=== PATIENT | female | born 1945 | race Caucasian/White ===

== ENCOUNTER → 2017-09-03 11:04 | Outpatient (CLI) | payer MEDICARE, OTHER, SELFPAY ==
[2017-09-03 12:19] LABS: ALB/GLOB Ratio 1.1 RATIO (0.9-2.4); AST(SGOT) 18 U/L (15-37); Alanine Aminotransfer ALT/SGPT 34 U/L (13-56); Albumin, Serum 4.3 g/dL (3.2-5.0); Alkaline Phosphatase 84 U/L (45-117); Anion Gap 9 (5-15); BUN 14 mg/dL (7-18); BUN/Creat Ratio 8.3 RATIO (10-20); Calcium,Total 9.4 mg/dL (8.5-10.1); Chloride 103 mmol/L (98-107); Creatinine, Serum 1.69 mg/dL (0.55-1.02); EST Glomerular Filtration Rate 32 mL/min (>60); Est Glom Filt Rate - Afr Amer 38 mL/min (>60); Glucose 141 mg/dL (74-106); Potassium 4.4 mmol/L (3.5-5.1); Protein, Total 8.3 g/dL (6.4-8.2); Sodium Level 138 mmol/L (136-145); Thyroid Stim Hormone (TSH) 4.85 uIU/mL (0.358-3.74)
[2017-09-03 12:28] LABS: Microalbumin,Random Urine 89.9 mg/L (NO RANGE EST.); Microalbumin:Creatinine Ratio 55.2 mg/g CRE (<30 mg/g CRE)
== END ==
PROVIDERS: Family Provider Family Medicine; PCP Family Medicine; Visit Provider Family Medicine
DX: E11.9 Type 2 diabetes mellitus without complications (principal)
CPT/HCPCS: 36415; 80053; 82043; 82570; 83036; 84443

== ENCOUNTER → 2018-01-27 07:31 | Outpatient (CLI) | payer MEDICARE, OTHER, SELFPAY ==
[2018-01-27 10:41] LABS: Microalbumin,Random Urine 23.6 mg/L (NO RANGE EST.); Microalbumin:Creatinine Ratio 28.5 mg/g CRE (<30 mg/g CRE)
[2018-01-27 11:01] LABS: AST(SGOT) 17 U/L (15-37); Alanine Aminotransfer ALT/SGPT 40 U/L (13-56); Albumin, Serum 3.7 g/dL (3.2-5.0); Alkaline Phosphatase 79 U/L (45-117); Anion Gap 10 (5-15); BUN 10 mg/dL (7-18); BUN/Creat Ratio 11.5 RATIO (10-20); Calcium,Total 8.7 mg/dL (8.5-10.1); Chloride 103 mmol/L (98-107); Cholesterol 116 mg/dL (200); Creatinine, Serum 0.87 mg/dL (0.55-1.02); EST Glomerular Filtration Rate 68 mL/min (>60); Est Glom Filt Rate - Afr Amer 83 mL/min (>60); Free T3 2.3 pg/mL (2.18-3.98); Globulin 3.8 g/dL (2.2-4.2); Glucose 128 mg/dL (74-106); High Density Lipoprotein 36 mg/dL; Potassium 4.2 mmol/L (3.5-5.1); Protein, Total 7.5 g/dL (6.4-8.2); Sodium Level 139 mmol/L (136-145); T4 Free Direct 1.48 ng/dL (0.76-1.46); Thyroid Stim Hormone (TSH) 6.98 uIU/mL (0.358-3.74); Triglycerides 196 mg/dL; Very Low Density Lipoprotein 39 mg/dL (5-40)
[2018-01-27 11:20] LABS: Hemoglobin A1c 6.9 % (4.2-6.3)
== END ==
PROVIDERS: Family Provider Family Medicine; PCP Family Medicine; Referring Provider Family Medicine; Visit Provider Family Medicine
DX: E03.9 Hypothyroidism, unspecified (principal); E11.9 Type 2 diabetes mellitus without complications; E55.9 Vitamin D deficiency, unspecified
CPT/HCPCS: 36415; 80053; 80061; 82043; 82570; 83036; 84439; 84443; 84481

== ENCOUNTER → 2018-04-28 10:11 | Outpatient (CLI) | payer MEDICARE, OTHER, SELFPAY ==
--- NOTE | 2018-04-28 10:14 | BI_ITS ---
MAMMOGRAPHY - BILATERAL SCREENING REASON FOR EXAM: Female, 72 years old. Routine annual screening examination. PERTINENT HISTORY: Sister with breast cancer. Aunts with breast cancer. TECHNIQUE: Digital bilateral breast erin (3D mammographic acquisition) in the CC and MLO projections. 2-D mediolateral oblique (MLO) and craniocaudad (CC) views of both breasts were obtained. CAD: Full Field Digital Mammography with Computer Added Detection was performed. COMPARISON: Comparison is made with prior study dated December 01, 2014 and September 14, 2013. FINDINGS: Breast Composition: There are scattered areas of fibroglandular density. There are no dominant masses or suspicious calcifications. Stable small bilateral axillary lymph nodes. No other significant abnormalities are identified. There has been no significant change since the prior study. BI/SCREENING MAMM (CAD), BILAT IMPRESSION: Stable bilateral screening mammogram. Yearly follow-up mammogram recommended. (A) ASSESSMENT CATEGORY: BIRADS Category 2: Benign. A letter regarding these results will be sent to the patient by the facility within 30 days. Approximately 10% of breast cancers are not detected by mammography. A normal mammogram should not delay biopsy of a clinically suspicious abnormality. [id number] Electronically Signed: Man Rivas MD at 11:32 EST , Service support ,
--- NOTE | 2018-04-28 10:16 | BD_ITS ---
STUDY: DUAL ENERGY X-RAY ABSORPTIOMETRY / DXA REASON FOR EXAM: Female, 72 years old. The patient is postmenopausal. Loss of height. TECHNIQUE: Bone Mineral Density (BMD) measurements of lumbar spine and bilateral hips were obtained. COMPARISON: Comparison is made with prior study dated August 20, 2011. FINDINGS: Lumbar Spine (L1-L4): g/cm2 (1.056) / T-score (-1.0) / Z-score (0.8) Findings are suggestive of normal bone density with a low fracture risk. Left Femur Total: g/cm2 (0.943) / T-score (-0.5) / Z-score (1.1) Left Femoral Neck: g/cm2 (0.866) / T-score (-1.2) / Z-score (0.6) Right Femur Total: g/cm2 (0.796) / T-score (-1.7) / Z-score (-0.1) Right Femoral Neck: g/cm2 (0.724) / T-score (-2.3) / Z-score (-0.5) The T-Scores on the most recent prior examination were: Lumbar Spine (L1-L4): There has been improvement of bone density since the previous examination. Left Femur Total: which represents a worsening of 3.2%. Right Femur Total: which represents a worsening of 10.5%. BD/Dexa Bone Density Study IMPRESSION: The patient is considered osteopenic as outlined below according to World [place] Organization (WHO) criteria with a moderate fracture risk. There has been worsening of bone density since the previous examination. Reference Information: The T-score is the number of standard deviations above or below the standard which is normal for young adults at their peak bone mineral density. The World Health Organization (WHO) interprets the T-scores as follows: Above -1 Normal bone density Between -1 and -2.5 Osteopenia Equal to / or below -2.5 Osteoporosis As a practical clinical guideline, osteopenia may be graded as follows: Mild -1 through -1.5 Moderate -1.6 through -2.0 Severe -2.1 through -2.4 The Z-score is the number of standard deviations above or below age-matched controls. A Z-score of less than -1.5 would be considered abnormal. References: 1. NIH Osteoporosis and Related Bone Diseases http://www.osteo.org 2. International Society for Clinical Densitometry http://www.iscd.org 3. National Osteoporosis Foundation http://www.nof.org Electronically Signed: Man Rivas MD at 14:46 EST , Service support ,
== END ==
PROVIDERS: Family Provider Family Medicine; PCP Family Medicine; Referring Provider Family Medicine; Visit Provider Family Medicine
DX: Z12.31 Encounter for screening mammogram for malignant neoplasm of breast (principal); N95.9 Unspecified menopausal and perimenopausal disorder
CPT/HCPCS: 77063; 77067; 77080

== ENCOUNTER → 2018-06-01 08:03 | Outpatient (CLI) | payer MEDICARE, OTHER, SELFPAY ==
[2018-06-01 10:39] LABS: Hemoglobin A1c 6.9 % (4.2-6.3)
[2018-06-01 10:48] LABS: T4 Free Direct 1.53 ng/dL (0.76-1.46); Thyroid Stim Hormone (TSH) 1.83 uIU/mL (0.358-3.74)
== END ==
PROVIDERS: Family Provider Family Medicine; PCP Family Medicine; Referring Provider Family Medicine; Visit Provider Family Medicine
DX: E11.9 Type 2 diabetes mellitus without complications (principal); E03.9 Hypothyroidism, unspecified
CPT/HCPCS: 36415; 83036; 84439; 84443

== ENCOUNTER → 2018-09-08 07:43 | Outpatient (CLI) | payer MEDICARE, OTHER, SELFPAY ==
[2018-09-08 10:03] LABS: Absolute Lymphocyte Count 1.11 X10^3/ul (0.83-4.51); Absolute Neutrophil Count 5.6 X10^3/uL (2.0-7.7); Basophil# 0.02 X10^3/uL; Basophil% 0.3 % (0-1); Eosinophil# 0.17 X10^3/uL; Eosinophils% 2.3 % (0-5); Hematocrit 40.5 % (37-47); Lymphocyte # 1.11 X10^3/ul (4.0); Lymphocyte % 14.8 % (19-41); Mean Corp Hgb Conc 32.1 g/gl (32-36); Mean Corpuscular Volume 87.3 fL (81-99); Mean Platelet Vol. 11.9 fl (6.2-12.0); Monocyte# 0.58 X10^3/uL; Monocyte% 7.7 % (0-10); Neutrophil # 5.61 X10^3/uL (2.7-7.7); Neutrophil % 74.8 % (47-70); Platelet Count 249 K/mm3 (150-450); RBC Distribution Width CV 12.8 % (11.6-14.6); RBC Distribution Width SD 40.8 fl (35.1-43.9); Red Blood Count 4.64 M/mm3 (4.2-5.4); White Blood Count 7.5 K/mm3 (4.4-11.0)
[2018-09-08 10:08] LABS: POSITIVE COUNT NO; POSITIVE DIFFERENTIAL NO; POSITIVE MORPHOLOGY NO
[2018-09-08 10:15] LABS: Microalbumin,Random Urine 15.2 mg/L (NO RANGE EST.); Microalbumin:Creatinine Ratio 19.8 mg/g CRE (<30 mg/g CRE)
[2018-09-08 10:20] LABS: AST(SGOT) 17 U/L (15-37); Alanine Aminotransfer ALT/SGPT 31 U/L (13-56); Albumin, Serum 3.8 g/dL (3.2-5.0); Alkaline Phosphatase 72 U/L (45-117); Anion Gap 9 (5-15); BUN 11 mg/dL (7-18); BUN/Creat Ratio 12.2 RATIO (10-20); Calcium,Total 9.2 mg/dL (8.5-10.1); Chloride 105 mmol/L (98-107); Cholesterol 131 mg/dL (200); EST Glomerular Filtration Rate 65 mL/min (>60); Est Glom Filt Rate - Afr Amer 79 mL/min (>60); Free T3 2.6 pg/mL (2.18-3.98); Glucose 144 mg/dL (74-106); High Density Lipoprotein 35 mg/dL; Potassium 4.1 mmol/L (3.5-5.1); Protein, Total 7.8 g/dL (6.4-8.2); Sodium Level 140 mmol/L (136-145); Thyroid Stim Hormone (TSH) 2.49 uIU/mL (0.358-3.74); Triglycerides 249 mg/dL; Very Low Density Lipoprotein 50 mg/dL (5-40)
== END ==
PROVIDERS: Family Provider Family Medicine; PCP Family Medicine; Referring Provider Family Medicine; Visit Provider Family Medicine
DX: E78.00 Pure hypercholesterolemia, unspecified (principal); E03.9 Hypothyroidism, unspecified; I10 Essential (primary) hypertension
CPT/HCPCS: 36415; 80053; 80061; 82043; 82570; 84443; 84481; 85025

== ENCOUNTER → 2019-04-01 08:40 | Outpatient (CLI) | payer MEDICARE, OTHER, SELFPAY ==
[2019-04-01 10:38] LABS: Hemoglobin A1c 7.4 % (4.2-6.3)
[2019-04-01 10:40] LABS: AST(SGOT) 15 U/L (15-37); Alanine Aminotransfer ALT/SGPT 36 U/L (13-56); Albumin, Serum 3.7 g/dL (3.2-5.0); Alkaline Phosphatase 71 U/L (45-117); Anion Gap 7 (5-15); BUN 13 mg/dL (7-18); BUN/Creat Ratio 14.8 RATIO (10-20); Calcium,Total 8.9 mg/dL (8.5-10.1); Chloride 105 mmol/L (98-107); Cholesterol 140 mg/dL (200); Creatinine, Serum 0.88 mg/dL (0.55-1.02); EST Glomerular Filtration Rate 67 mL/min (>60); Est Glom Filt Rate - Afr Amer 81 mL/min (>60); Globulin 3.8 g/dL (2.2-4.2); Glucose 147 mg/dL (74-106); High Density Lipoprotein 38 mg/dL; Potassium 3.9 mmol/L (3.5-5.1); Protein, Total 7.5 g/dL (6.4-8.2); Sodium Level 139 mmol/L (136-145); Thyroid Stim Hormone (TSH) 2.29 uIU/mL (0.358-3.74); Triglycerides 233 mg/dL; Very Low Density Lipoprotein 47 mg/dL (5-40)
[2019-04-01 10:42] LABS: Microalbumin,Random Urine 20.3 mg/L (NO RANGE EST.); Microalbumin:Creatinine Ratio 34.9 mg/g CRE (<30 mg/g CRE)
== END ==
PROVIDERS: PCP Family Medicine; Referring Provider Family Medicine; Visit Provider Family Medicine
DX: I25.10 Atherosclerotic heart disease of native coronary artery without angina pectoris (principal); E11.9 Type 2 diabetes mellitus without complications
CPT/HCPCS: 36415; 80053; 80061; 82043; 82570; 83036; 84443

== ENCOUNTER → 2019-07-22 10:48 | Outpatient (CLI) | payer MEDICARE, OTHER, SELFPAY ==
[2019-07-22 12:48] LABS: Absolute Lymphocyte Count 1.57 X10^3/uL (0.83-4.51); Absolute Neutrophil Count 5.8 X10^3/uL (2.0-7.7); Basophil# 0.07 X10^3/uL; Basophil% 0.8 % (0-1); Eosinophils% 2.4 % (0-5); Hematocrit 41.6 % (37-47); Hemoglobin 13.3 g/dL (12.0-15.0); Lymphocyte # 1.57 X10^3/ul (4.0); Lymphocyte % 18.6 % (19-41); Mean Corpuscular Hgb 28.3 pg (27.0-32.0); Mean Corpuscular Volume 88.5 fL (81-99); Mean Platelet Vol. 11.8 fl (6.2-12.0); Monocyte# 0.72 X10^3/uL; Monocyte% 8.5 % (0-10); NRBC Flagged by Analyzer 0 % (0-5); Neutrophil # 5.84 X10^3/uL (2.7-7.7); Neutrophil % 69.3 % (47-70); Platelet Count 246 K/mm3 (150-450); RBC Distribution Width SD 42.2 fl (35.1-43.9); White Blood Count 8.4 K/mm3 (4.4-11.0)
[2019-07-22 13:03] LABS: Partial Thromboplast Time 24.9 Seconds (24.1-36.2); Prothrombin Time (Protime)PT. 12.9 SECONDS (11.7-14.9)
[2019-07-22 13:26] LABS: Creatinine, Serum 0.89 mg/dL (0.55-1.02); EST Glomerular Filtration Rate 66 mL/min (>60); Est Glom Filt Rate - Afr Amer 80 mL/min (>60)
[2019-07-22 14:06] LABS: Hemoglobin A1c 7.6 % (4.2-6.3)
== END ==
PROVIDERS: PCP Family Medicine; Referring Provider Family Medicine; Visit Provider Family Medicine
DX: E11.9 Type 2 diabetes mellitus without complications (principal); I25.10 Atherosclerotic heart disease of native coronary artery without angina pectoris; Z01.818 Encounter for other preprocedural examination
CPT/HCPCS: 36415; 82565; 83036; 85025; 85610; 85730

== ENCOUNTER → 2019-11-22 08:06 | Outpatient (CLI) | payer MEDICARE, OTHER, SELFPAY ==
[2019-11-22 10:33] LABS: Hemoglobin A1c 7.5 % (3.8-5.6)
[2019-11-22 10:52] LABS: ALB/GLOB Ratio 0.9 RATIO (0.9-2.4); AST(SGOT) 17 U/L (15-37); Alanine Aminotransfer ALT/SGPT 34 U/L (13-56); Albumin, Serum 3.6 g/dL (3.2-5.0); Alkaline Phosphatase 74 U/L (45-117); Anion Gap 6 (5-15); BUN 12 mg/dL (7-18); BUN/Creat Ratio 13.8 RATIO (10-20); Chloride 108 mmol/L (98-107); Cholesterol 128 mg/dL (200); Creatinine, Serum 0.87 mg/dL (0.55-1.02); EST Glomerular Filtration Rate 68 mL/min (>60); Est Glom Filt Rate - Afr Amer 82 mL/min (>60); Glucose 162 mg/dL (74-106); High Density Lipoprotein 33 mg/dL; Potassium 4.1 mmol/L (3.5-5.1); Protein, Total 7.6 g/dL (6.4-8.2); Sodium Level 138 mmol/L (136-145); Thyroid Stim Hormone (TSH) 1.48 uIU/mL (0.358-3.74); Triglycerides 267 mg/dL; Very Low Density Lipoprotein 53 mg/dL (5-40)
== END ==
PROVIDERS: PCP Family Medicine; Referring Provider Family Medicine; Visit Provider Family Medicine
DX: E11.9 Type 2 diabetes mellitus without complications (principal); I25.10 Atherosclerotic heart disease of native coronary artery without angina pectoris; E03.9 Hypothyroidism, unspecified
CPT/HCPCS: 36415; 80053; 80061; 82306; 83036; 84443

== ENCOUNTER → 2020-03-22 11:22 | Outpatient (CLI) | payer MEDICARE, OTHER, SELFPAY ==
[2020-03-22 12:47] LABS: Hemoglobin A1c 7.6 % (3.8-5.6)
[2020-03-22 12:56] LABS: AST(SGOT) 14 U/L (15-37); Alanine Aminotransfer ALT/SGPT 29 U/L (13-56); Albumin, Serum 3.8 g/dL (3.2-5.0); Alkaline Phosphatase 76 U/L (45-117); Anion Gap 7 (5-15); BUN 14 mg/dL (7-18); BUN/Creat Ratio 15.4 RATIO (10-20); Calcium,Total 9.1 mg/dL (8.5-10.1); Chloride 103 mmol/L (98-107); Creatinine, Serum 0.91 mg/dL (0.55-1.02); EST Glomerular Filtration Rate 64 mL/min (>60); Est Glom Filt Rate - Afr Amer 78 mL/min (>60); Globulin 3.8 g/dL (2.2-4.2); Glucose 163 mg/dL (74-106); Potassium 3.6 mmol/L (3.5-5.1); Protein, Total 7.6 g/dL (6.4-8.2); Sodium Level 136 mmol/L (136-145)
== END ==
PROVIDERS: PCP Family Medicine; Referring Provider Family Medicine; Visit Provider Family Medicine
DX: E11.9 Type 2 diabetes mellitus without complications (principal)
CPT/HCPCS: 36415; 80053; 83036

== ENCOUNTER → 2020-05-11 09:36 | Outpatient (CLI) | payer MEDICARE, OTHER, SELFPAY ==
--- NOTE | 2020-05-11 09:39 | BI_ITS ---
MAMMOGRAPHY - BILATERAL SCREENING REASON FOR EXAM: Female, 74 years old. Routine annual screening examination. PERTINENT HISTORY: Sister with breast cancer. Aunts with breast cancer. TECHNIQUE: Digital bilateral breast clau (3D mammographic acquisition) in the CC and MLO projections. 2-D mediolateral oblique (MLO) and craniocaudad (CC) views of both breasts were obtained. CAD: Full Field Digital Mammography with Computer Added Detection was performed. COMPARISON: Comparison is made with prior examination dated 04/28/2018 and 12/01/2014. FINDINGS: Breast Composition: There are scattered areas of fibroglandular density. There are no dominant masses or suspicious calcifications. Stable small benign-appearing bilateral axillary lymph nodes. No other significant abnormalities are identified. There has been no significant change since the prior study. BI/SCRN MAMM (CAD)W/CLAU BILAT IMPRESSION: Stable bilateral screening mammogram. Yearly follow-up mammogram recommended. (A) ASSESSMENT CATEGORY: BIRADS Category 2: Benign. A letter regarding these results will be sent to the patient by the facility within 30 days. Approximately 10% of breast cancers are not detected by mammography. A normal mammogram should not delay biopsy of a clinically suspicious abnormality. [id number] Electronically Signed: Man Rivas MD at 10:35 EST , Service support ,
== END ==
PROVIDERS: PCP Family Medicine; Referring Provider Family Medicine; Visit Provider Family Medicine
DX: Z12.31 Encounter for screening mammogram for malignant neoplasm of breast (principal); Z80.3 Family history of malignant neoplasm of breast
CPT/HCPCS: 77063; 77067

== ENCOUNTER → 2020-10-31 17:38 | Outpatient (CLI) | payer MEDICARE, OTHER, SELFPAY | PROVIDERS: PCP Family Medicine; Visit Provider Family Medicine | DX: Z20.822 Contact with and (suspected) exposure to COVID-19 (principal) | CPT/HCPCS: 87635; U0005; U0003 ==

== ENCOUNTER 2021-04-05 08:23 | Outpatient (CLI) | payer MEDICARE, OTHER, SELFPAY ==
[2021-04-05 10:05] LABS: Anion Gap 6 (5-15); BUN 14 mg/dL (7-18); BUN/Creat Ratio 13.9 RATIO (10-20); Calcium,Total 9.1 mg/dL (8.5-10.1); Chloride 105 mmol/L (98-107); Cholesterol 118 mg/dL (200); Creatinine, Serum 1.01 mg/dL (0.55-1.02); EST Glomerular Filtration Rate 57 mL/min (>60); Est Glom Filt Rate - Afr Amer 69 mL/min (>60); Glucose 126 mg/dL (74-106); High Density Lipoprotein 43 mg/dL; Potassium 3.9 mmol/L (3.5-5.1); Sodium Level 138 mmol/L (136-145); Triglycerides 166 mg/dL; Very Low Density Lipoprotein 33 mg/dL (5-40)
[2021-04-05 10:08] LABS: Hemoglobin A1c 6.4 % (3.8-5.6)
== END 2021-04-05 23:59 | disposition short-term general hospital (02) ==
LOC: MTLAB 08:25
PROVIDERS: PCP Family Medicine; Referring Provider Nurse Practitioner Family; Visit Provider Nurse Practitioner Family
DX: E11.9 Type 2 diabetes mellitus without complications (principal); E78.00 Pure hypercholesterolemia, unspecified
CPT/HCPCS: 36415; 80048; 80061; 83036

== ENCOUNTER 2021-05-03 11:01 | Outpatient (CLI) | payer MEDICARE, OTHER, SELFPAY ==
[2021-05-03 12:38] LABS: AST(SGOT) 15 U/L (15-37); Alanine Aminotransfer ALT/SGPT 30 U/L (13-56); Albumin, Serum 3.8 g/dL (3.2-5.0); Alkaline Phosphatase 62 U/L (45-117); Anion Gap 3 (5-15); BUN 12 mg/dL (7-18); BUN/Creat Ratio 13.7 RATIO (10-20); Calcium,Total 9.7 mg/dL (8.5-10.1); Chloride 105 mmol/L (98-107); Creatinine, Serum 0.87 mg/dL (0.55-1.02); EST Glomerular Filtration Rate 67 mL/min (>60); Est Glom Filt Rate - Afr Amer 81 mL/min (>60); Globulin 3.7 g/dL (2.2-4.2); Glucose 91 mg/dL (74-106); Protein, Total 7.5 g/dL (6.4-8.2); Sodium Level 137 mmol/L (136-145)
== END 2021-05-03 23:59 | disposition home or self-care (01) ==
LOC: MTLAB 11:03
PROVIDERS: PCP Family Medicine; Referring Provider Registered Nurse; Visit Provider Registered Nurse
DX: E78.00 Pure hypercholesterolemia, unspecified (principal)
CPT/HCPCS: 36415; 80053

== ENCOUNTER 2021-09-04 16:21 | Inpatient (IN) | payer MEDICARE, OTHER, SELFPAY ==
[2021-09-04] VITALS (7 sets, daily range): BP systolic 139–167; BP diastolic 68–83; PULSE 62–98; RESP 15–18; TEMP 36.4–38; O2SAT 95–98; BMI 26.8; BMI 26.3
--- NOTE | 2021-09-04 16:36 | EDS_ITS ---
HPI History of Present Illness Chief Complaint: Fall Narrative Narrative: This is a 75-year-old female presenting after a fall in her driveway. She states she has been having difficulty ambulating recently secondary to a knee problem that she has been seeing physical therapy for. She states that it hurts behind her right knee. She states he was going down the driveway and felt slightly lightheaded but also had difficulty with her knee and fell. She states she was unable to get up off the driveway. She reports that this is not her usual state of health but recently she has been having trouble getting up because of her knee problem. She denies any direct trauma to the knee. She states her right hip hurts but points to the anterior thigh proximally. She suffered some minor abrasions to the bilateral hands but she states her hands do not hurt. She also has a superficial abrasion to the right elbow which also is not hurting. She has no pain with movement. She denies head injury or LOC. She states that other than her knee problem and her current hip pain she is in h usual state health and feels well. She denies any chest pain, palpitations, shortness of breath prior to falling. She states he has been eating and drinking normally. She is making normal urine and stool. [facility] Medical History (Updated 09/04/21 @ 21:[address] Sophie Vega MD) Allergic rhinitis CAD (coronary artery disease) Diabetes High cholesterol HTN (hypertension) Hypothyroid Home Medications aspirin 81 mg tablet,delayed release (Adult Low Dose Aspirin) 81 mg PO DAILY 05/22/15 [History Last Taken Unknown] atorvastatin 40 mg tablet 40 mg PO QHS HLD 05/22/15 [History Last Taken Unknown] lisinopril 5 mg tablet 5 mg PO DAILY 05/22/15 [History Last Taken Unknown] fluticasone propionate 50 mcg/actuation nasal spray,suspension 2 ea intranasal DAILY 09/04/21 [History Last Taken Unknown] levothyroxine 100 mcg tablet 100 mcg PO DAILY 09/04/21 [History Last Taken Unknown] metformin 500 mg tablet 500 mg PO BID DM 09/04/21 [History Last Taken Unknown] metoprolol succinate 25 mg tablet,extended release 24 hr 25 mg PO DAILY 09/04/21 [History Last Taken Unknown] Allergy/AdvReac Type Severity Reaction Status Date / Time acetaminophen [From Tylenol] AdvReac Upset Verified 09/04/21 16:22 Stomach oxycodone AdvReac I FEEL Verified 03/23/15 11:57 WACKED OUT Penicillins [PCN] AdvReac I STAY Verified 03/23/15 11:57 AWAY, MY DAD WAS ALLERGIC Surgical History (Updated 09/04/21 @ 16:40 by Ivette Glasgow) Hx of heart artery stent Social History Smoking Status: Never smoker ROS ROS ED Constitutional Constitutional ED: Denies chills or fever(s) Eyes Eyes: Denies change in vision or diplopia ENT ENT ED: Denies rhinorrhea or sore throat Cardiovascular Cardiovascular: Denies chest pain or palpitations Respiratory/Chest Respiratory/Chest: Denies cough or dyspnea Gastrointestinal Gastrointestinal: Denies abdominal pain or constipation Genitourinary Genitourinary ED: Denies dysuria or hematuria Musculoskeletal Musculoskeletal: Reports other Details: Right hip pain ; Denies back pain Integumentary Reports Abrasions; Denies abscess Neurologic Neurologic: Denies headache(s) or paresthesias Psychiatric Psychiatric: Denies anxiety or depression EXAM Physical Exam Const Vital Signs: 09/04/21 16:22 09/04/21 16:37 09/04/21 21:07 Temperature 97.5 F L Temperature Source Temporal Pulse Rate 88 62 Respiratory Rate 15 16 Respiratory Effort Normal Non-Labored Respiratory Depth Normal Respiratory Pattern Normal Blood Pressure 150/68 H 139/71 H Blood Pressure Mean 95 93 Pulse Ox 98 98 Oxygen Delivery Method Room Air Room Air Positive well nourished General Appearance ED: NAD HEENT Reports moist mucous membranes normocephalic and atraumatic Chest Wall inspection of chest normal Resp normal respiratory effort Cardio regular rate and regular rhythm Back/Spine Cervical Spine: Negative for cervical spine tenderness Thoracic Spine / Upper Back: Negative for thoracic spinal tenderness Lumbar Spine / Lower Back: Negative for lumbar spinal tenderness Extremity Extremity Narrative: Right proximal thigh is tender to palpation in the inguinal area. No ecchymosis, swelling. The right greater trochanter is nontender to palpation. Patient is able to slightly flex the hip up off the bed but this elicits pain. The right extensor mechanism is intact. There is no palpable pain to the right knee. She has full range of motion without pain of the bilateral wrists and hands. Her right elbow has a superficial abrasion overlying the olecranon however she has full range of motion without deformity and this is well. No pain is palpated in this area. Neuro oriented x3, CN's II-XII intact bilaterally, moves all extremities and no sensory deficits noted Sensorium / Orientation: alert Psych mental status grossly normal MDM MDM MDM Narrative Medical decision making narrative: Patient presenting with a fall in the driveway. She was complaining of some lightheadedness currently feels at her baseline. She states has been eating drinking normally. Making normal urine and stool. X-ray of the right hip on my interpretation shows an impacted right femoral neck fracture. I did obtain blood work and she has a slight leukocytosis of 14.2. Hemoglobin hematocrit are stable. Renal function and electrolytes unremarkable. She is slightly dehydrated. Urinalysis negative for infection. Discussed with Dr. Moreno who recommended admission to medicine. I did discuss case with medicine who requested an EKG which I did obtain and on my interpretation shows a sinus rhythm with a ventricular rate of 89 bpm without ischemic change or dysrhythmia. Patient declined any analgesia in the ER. Soto catheter was placed for comfort. Patient admitted in stable condition. Impression: 1. fall 2. Right hip fracture Lab Data Attestation: I reviewed the patient's lab results. Labs: Laboratory Results - last 24 hr 09/04/21 09/04/21 09/04/21 20:26 20:26 20:41 WBC 14.2 H RBC 4.45 Hgb 13.3 Hct 40.7 MCV 91.5 MCH 29.9 MCHC 32.7 RDW Std Deviation 41.8 RDW Coeff of Aditya 12.5 Plt Count 230 MPV 11.2 Immature Gran % (Auto) 0.800 Neut % (Auto) 80.3 H Lymph % (Auto) 10.2 L [place] % (Auto) 6.5 Eos % (Auto) 1.8 Baso % (Auto) 0.4 Absolute Neuts (auto) 11.4 H Absolute Lymphs (auto) 1.44 Nucleated RBC % 0 Sodium 141 Potassium 3.7 Chloride 107 Carbon Dioxide 26.0 Anion Gap 8 BUN 22 H Creatinine 1.03 H Estim Creat Clear Calc 42.47 Est GFR (MDRD) Af Amer 67 Est GFR (MDRD) Non-Af 55 L BUN/Creatinine Ratio 21.4 H Glucose 117 H Calcium 9.3 Urine Color Yellow Urine Clarity Sl. Cloudy Urine pH 6.0 Ur Specific [place] 1.015 Urine Protein Negative Urine Glucose (UA) Normal Urine Ketones 5 H Urine Occult Blood Negative Urine Nitrite Negative Urine Bilirubin Negative Urine Urobilinogen Normal Ur Leukocyte Esterase 100 H Urine RBC 0 SEEN Urine WBC 5-10 SEEN Ur Squamous Epith Cells 0-5 SEEN Urine Bacteria 0 SEEN Urine Mucus 0 SEEN Radiography Diagnostic Testing: Clinical Impression(s) from Imaging Studies Hip/Pelvis X-Ray 09/04/21 16:50 IMPRESSION: 1. Impacted right femoral neck fracture. 2. No other fractures or dislocations. 3. No significant arthritic or degenerative changes. 4. Mild demineralization. Electronically Signed: Jarod Mary MD at 17:42 EDT , Discharge Plan Triage Chief Complaint: Fall ED Provider: Brett Low Dx/Rx/DC Orders Primary Care Provider: Jah Luther
--- NOTE | 2021-09-04 16:50 | RAD_ITS ---
STUDY: PELVIS AND RIGHT HIP X-RAY SERIES OF 1657 HOURS ON 09/04/2021 REASON FOR EXAM: 75-year-old female with right hip pain. TECHNIQUE: 3 views of the pelvis and hip. COMPARISON: None. FINDINGS: Mild demineralization. There is an impacted right femoral neck fracture. There is no evidence of pelvic bone fractures. No osseous lytic or sclerotic or mass lesions are evident. The symphysis pubis and sacroiliac joints have normal appearance. There is no evidence of significant hip joint space narrowing or arthritic or degenerative changes of the hips. RAD/HIP, UNI W/ Pelvis 2-3 Views IMPRESSION: 1. Impacted right femoral neck fracture. 2. No other fractures or dislocations. 3. No significant arthritic or degenerative changes. 4. Mild demineralization. Electronically Signed: Jarod Mary MD at 17:42 EDT ,
[2021-09-04 20:44] LABS: Absolute Lymphocyte Count 1.44 X10^3/uL (0.83-4.51); Absolute Neutrophil Count 11.4 X10^3/uL (2.0-7.7); Basophil# 0.05 X10^3/uL; Basophil% 0.4 % (0-1); Eosinophil# 0.26 X10^3/uL; Eosinophils% 1.8 % (0-5); Hematocrit 40.7 % (37-47); Hemoglobin 13.3 g/dL (12.0-15.0); Lymphocyte # 1.44 X10^3/ul (0.83-4.51); Lymphocyte % 10.2 % (19-41); Mean Corp Hgb Conc 32.7 g/dL (32-36); Mean Corpuscular Hgb 29.9 pg (27.0-32.0); Mean Corpuscular Volume 91.5 fL (81-99); Mean Platelet Vol. 11.2 fl (6.2-12.0); Monocyte# 0.92 X10^3/uL; Monocyte% 6.5 % (0-10); NRBC Flagged by Analyzer 0 % (0-5); Neutrophil % 80.3 % (47-70); Platelet Count 230 K/mm3 (150-450); RBC Distribution Width CV 12.5 % (11.6-14.6); RBC Distribution Width SD 41.8 fl (35.1-43.9); Red Blood Count 4.45 M/mm3 (4.2-5.4); White Blood Count 14.2 K/mm3 (4.4-11.0)
[2021-09-04 20:46] LABS: Bacteria 0 SEEN /hpf (None Seen); Mucous, Urine 0 SEEN /hpf (<or=2+); Red Blood Cells-Urine 0 SEEN /hpf (0-5)
[2021-09-04 20:49] LABS: Color, Urine Yellow (Yellow); Glucose, Dipstick Normal (Normal); Ketone-Dipstick 5 mg/dl (Negative); Leukocyte Esterase-Dipstick 100 /ul (Negative); Nitrite-Dipstick Negative (Negative); Occult Blood-Urine Negative /ul (Negative); Protein-Dipstick Negative (Negative); Specific Gravity, Urine 1.015 (1.002-1.030); Urine Bilirubin Dipstick Negative (Negative); Urine Clarity Sl. Cloudy (Clear); Urine Urobilinogen Normal (Normal)
[2021-09-04 20:55] LABS: Anion Gap 8 (5-15); BUN 22 mg/dL (7-18); BUN/Creat Ratio 21.4 RATIO (10-20); Calcium,Total 9.3 mg/dL (8.5-10.1); Chloride 107 mmol/L (98-107); Creatinine, Serum 1.03 mg/dL (0.55-1.02); EST Glomerular Filtration Rate 55 mL/min (>60); Est Glom Filt Rate - Afr Amer 67 mL/min (>60); Estimated Creatinine Clearance 42.47 ml/min; Glucose 117 mg/dL (74-106); Potassium 3.7 mmol/L (3.5-5.1); Sodium Level 141 mmol/L (136-145)
[2021-09-04 21:08] LABS: Squamous Epithelial Cells - UA 0-5 SEEN /hpf (5-10); White Blood Cells 5-10 SEEN /hpf (0-5)
--- NOTE | 2021-09-04 21:23 | HP.PCM.HOS_ITS ---
HPI - General General Date of Admission: 09/04/21 Date of Service: 09/04/21 Chief Complaint: Fall, R hip pain HPI Narrative The patient is a 75 y/o F w/ PMHx: Diabetes mellitus type II, HTN, HLD, Hypothyroidism, Hx STEMI w/ CAD s/p PCI, Hx Fe deficiency anemia who presents to the [facility] ED on 09/04/21 with history of recent knee injury on 08/24/2021 while in a bowling tournament when she was attempting to roll the ball with onset right posterior knee pain as well as laterally and since then need to use a brace with difficulty taking longer steps with intermittent shooting pain from the lateral knee up the leg with PCP visit on day of presentation with plan therapies to initiate treatment and potential MRI if not improving with additional history of approximate 3 weeks of intermittent vertiginous type symptoms reported as the room spinning specifically with specific onset primarily when she lays down fast or sits up fast or when she turns her head fast both to the right and left side and it is proven primarily with his activities however on day of presentation she was outside walking down her driveway and had onset of the vertiginous symptoms although she is unsure if she potentially turned to look at something and unfortunately fell onto her right side with significant hip pain 10 out of 10 initially, reporting at this time without any movement 4 out of 10, dull aching if not moving and sharp stabbing if moving with inability to get up and debility prompting ED evaluation. Work-up in the ED included T97.5, heart rate 88, BP 150/68, respiratory rate 15, 98% on room air, CBC with WC 14.2, hemoglobin 13.3, platelet 230 with left shift, BMP with BUN/creatinine 22/1.03, glucose 117, urinalysis unremarkable, plain film of the right hip and pelvis with an impacted right femoral neck fracture with no other fractures or dis locations, no significant arthritic or degenerative changes and mild demineralization. Given history and comorbidities requested EKG performed in the ED in addition noted intention to obtain CT of the head on route to floor given a 3-week timeline if there was certainly any neurological stroke etiology for the vertigo this would be seen on CT; however, given her reports of symptoms do suspect more positional component however it is very difficult to reproduce given her current hip fracture. [facility] Medical History (Updated 09/04/21 @ 21:[address] Sophie Vega MD) Allergic rhinitis CAD (coronary artery disease) Diabetes High cholesterol HTN (hypertension) Hypothyroid Home Medications aspirin 81 mg tablet,delayed release (Adult Low Dose Aspirin) 81 mg PO DAILY 05/22/15 [History Last Taken Unknown] atorvastatin 40 mg tablet 40 mg PO QHS HLD 05/22/15 [History Last Taken Unknown] lisinopril 5 mg tablet 5 mg PO DAILY 05/22/15 [History Last Taken Unknown] fluticasone propionate 50 mcg/actuation nasal spray,suspension 2 ea intranasal DAILY 09/04/21 [History Last Taken Unknown] levothyroxine 100 mcg tablet 100 mcg PO DAILY 09/04/21 [History Last Taken Unknown] metformin 500 mg tablet 500 mg PO BID DM 09/04/21 [History Last Taken Unknown] metoprolol succinate 25 mg tablet,extended release 24 hr 25 mg PO DAILY 09/04/21 [History Last Taken Unknown] Allergy/AdvReac Type Severity Reaction Status Date / Time acetaminophen [From Tylenol] AdvReac Upset Verified 09/04/21 16:22 Stomach oxycodone AdvReac I FEEL Verified 03/23/15 11:57 WACKED OUT Penicillins [PCN] AdvReac I STAY Verified 03/23/15 11:57 AWAY, MY DAD WAS ALLERGIC Family History (Updated 09/04/21 @ 22:[address] Sophie Vega MD) Mother Colon cancer CAD (coronary artery disease) Heart disease Hypertension Father Heart disease Hypertension Diabetes CHF (congestive heart failure) Surgical History (Updated 09/04/21 @ 22:[address] Sophie Vega MD) History of bilateral tubal ligation Hx of heart artery stent S/P bilateral foot surgery Social History (Updated 09/04/21 @ 22:[address] Sophie Vega MD) household members: other details: Her older sister lives with her. Smoking Status: Never smoker alcohol intake: never substance use type: does not use ROS ROS Narrative Admission Review of Systems: CONSTITUTIONAL: No weight loss, fever, chills, + weakness or fatigue. HEENT: Eyes: No visual loss, blurred vision, double vision or yellow sclerae. Ears, Nose, Throat: No hearing loss, sneezing, congestion, runny nose or sore throat. SKIN: No rash or itching, lesions, wounds. CARDIOVASCULAR: No chest pain, chest pressure or chest discomfort, palpitations, edema, orthopnea, syncopal events. RESPIRATORY: No shortness of breath, cough or sputum, wheezing, hemoptysis. GASTROINTESTINAL: No anorexia, nausea, vomiting or diarrhea, abdominal pain, melena, BRBPR. GENITOURINARY: No dysuria, frequency, urgency or retention. NEUROLOGICAL: + Vertigo, No headache, syncope, paralysis, ataxia, numbness or tingling in the extremities, focal weakness, change in bowel or bladder control, seizure. MUSCULOSKELETAL: + muscle, back pain, joint pain or stiffness. HEMATOLOGIC: No anemia, bleeding or bruising. LYMPHATICS: No enlarged nodes. No history of splenectomy. PSYCHIATRIC: No history of depression or anxiety. ENDOCRINOLOGIC: No reports of sweating, cold or heat intolerance. No polyuria or polydipsia. ALLERGIES: No history of asthma, hives, eczema or rhinitis. Vital Signs Vital Signs Vital Signs: 09/04/21 16:22 09/04/21 16:37 09/04/21 21:07 Temperature 97.5 F L Temperature Source Temporal Pulse Rate 88 62 Respiratory Rate 15 16 Respiratory Effort Normal Non-Labored Respiratory Depth Normal Respiratory Pattern Normal Blood Pressure 150/68 H 139/71 H Blood Pressure Mean 95 93 Pulse Ox 98 98 Oxygen Delivery Method Room Air Room Air Weight Weight: 161 lb Body Mass Index (BMI) 26.8 Physical Exam Narrative Physical Examination: General: Awake, alert, oriented x 3 and cooperative, laying in the ED bed, no acute distress, notes currently right hip pain for out of 10, dull aching Skin: Normal color, normal turgor, no icterus, no cyanosis. HEENT: AT/NC, EOMI, PERRLA, no evidence of any nystagmus and unable to recreate but difficult exam as hip fracture makes evaluation for vertigo difficult, mildly dry MM, no carotid bruits or JVD noted. Lungs: Mildly diminished, greater bases, appropriate effort no rales, ronchi or wheezing. Heart: Currently regular rate and rhythm; no gallop, rub audible. Abdomen: Soft, NTTP, ND, mildly hyperactive BS, no HSM. Extremities: No cyanosis, clubbing, or edema, mild tenderness to palpation of the lateral knee, brace in place, peripheral pulses intact, no external significant rotation with as noted plain film demonstrating proximal impacted femoral. Neurological: Patient awake, alert, oriented neck fracture as noted, cognitive function intact; pupils equally reactive to light and accommodation, cranial nerves II-XII grossly normal, moving all 4 extremities except expected l imitation right lower extremity given recent fall with hip fracture, sensation intact, unable to reproduce any vertiginous symptoms but very difficult exam as patient with right hip fracture and unable to quickly jerk her up or put her back, no focal neurological deficits noted, strength given fracture severely globally decreased. Psychiatric: Affect appears fatigued, no acute evidence of depressive or anxiety feelings. Results Lab / Micro Data Result Diagrams: 09/04/21 20:26 09/04/21 20:26 Labs: Laboratory Results - last 24 hr 09/04/21 20:26: WBC 14.2 H, RBC 4.45, Hgb 13.3, Hct 40.7, MCV 91.5, MCH 29.9, MCHC 32.7, RDW Std Deviation 41.8, RDW Coeff of Aditya 12.5, Plt Count 230, MPV 11.2, Immature Gran % (Auto) 0.800, Neut % (Auto) 80.3 H, Lymph % (Auto) 10.2 L, [place] % (Auto) 6.5, Eos % (Auto) 1.8, Baso % (Auto) 0.4, Absolute Neuts (auto) 11.4 H, Absolute Lymphs (auto) 1.44, Nucleated RBC % 0 09/04/21 20:26: Sodium 141, Potassium 3.7, Chloride 107, Carbon Dioxide 26.0, Anion Gap 8, BUN 22 H, Creatinine 1.03 H, Estim Creat Clear Calc 42.47, Est GFR (MDRD) Af Amer 67, Est GFR (MDRD) Non-Af 55 L, BUN/Creatinine Ratio 21.4 H, Glucose 117 H, Calcium 9.3 09/04/21 20:41: Urine Color Yellow, Urine Clarity Sl. Cloudy, Urine pH 6.0, Ur Specific [place] 1.015, Urine Protein Negative, Urine Glucose (UA) Normal, Urine Ketones 5 H, Urine Occult Blood Negative, Urine Nitrite Negative, Urine Bilirubin Negative, Urine Urobilinogen Normal, Ur Leukocyte Esterase 100 H, Urine RBC 0 SEEN, Urine WBC 5-10 SEEN, Ur Squamous Epith Cells 0-5 SEEN, Urine Bacteria 0 SEEN, Urine Mucus 0 SEEN Radiology Impression Hip/Pelvis X-Ray 09/04/21 16:50 IMPRESSION: 1. Impacted right femoral neck fracture. 2. No other fractures or dislocations. 3. No significant arthritic or degenerative changes. 4. Mild demineralization. Electronically Signed: Jarod Mary MD at 17:42 EDT Reading Location ID and State: [facility], later [facility] / [place] Tel , Service support , Assessment & Plan Assessment/Plan (1) Closed right hip fracture: PLAN: Plan The patient is a 75 y/o F w/ PMHx: Diabetes mellitus type II, HTN, HLD, Hypothyroidism, Hx STEMI w/ CAD s/p PCI, Hx Fe deficiency anemia who presents to the [facility] ED on 09/04/21 with history of recent issues ambulating secondary to ongoing knee discomfort with current physical therapy reporting that she was going down her driveway with mild lightheadedness and difficulty with her knee specifically the right knee with mechanical fall and inability to get up off the driveway reporting that her right hip hurts as well pointing in the ED to the anterior thigh proximally with no loss of consciousness or head injury prompting ED evaluation. #1. General debility, R hip pain s/p mechanical fall w/ impacted right femoral neck fracture complicated by R Knee recent injury/pain, unclear etiology: Plain film noting impacted right femoral neck fracture. Orthopedic surgery consulted from ED. Will admit to [facility] telemetry, maintain NPO after midnight pending Orthopedic surgery evaluation, continue gentle IVFs, bella placement, monitor I/Os, frequent positioning, fall precautions, PRN pain, anti-emetic regimen. PT/OT following operative intervention. CM consulted for discharge planning. Continued pre-operative evaluation as noted. Did discuss recent knee injury to Orthopedic surgery and noted patient currently in brace with PCP evaluation 09/04/21 and planned therapies prior to MRI. Will defer further orthopedic e valuation of knee to their service. NSQIP evaluation with average risk for perioperative complications, no recent ECHO in system, 2016 STEMI with transfer to [place] but no records on [email or web address], EKG requested to be obtained in the ED to ED physician, no recent history of chest pain or dyspnea/exertional dyspnea, notes most recent Cardiology visit 02/2022. Will obtain BNP and preoperative troponin for baseline and in conjunction with NSQIP as noted if not elevated and EKG without acute f indings and stable in addition to CT head with no evidence of any intracranial pathology, ie subacute CVA given 3 weeks of vertigo, suspected BPPV given history, then would agree with progression to OR which was discussed with Orthopedic surgeon Dr. Moreno. He notes intention of OR later in the day 09/06/21. #2. Vertigo, suspect BPPV: EKG requested following evaluation and added on per ED physician, pending, will request troponin as well as BNP, will maintain on telemetry monitoring, CT head being obtained en route to admission as given 3 weeks of symptoms would expect evidence subacute CVA if posterior CVA; however, lower suspicion given onset with positional changes only, will judiciously hydration, if recurrent symptoms will add meclizine. #3. CAD: s/p STEMI from records 2015, transferred at that time to [place], s/p PCI x 2, continue asa, statin, metoprolol, lisinopril regimen. #4. Hypertension: Continue home regimen including metoprolol, lisinopril with hold parameters as, PRN hydralazine. #5. Hyperlipidemia: We will continue patient on statin therapy. #6. History of iron deficiency anemia: Admission hemoglobin 13.3, baseline 13, previously on iron supplementation, continue CBC trending. #7. Hypothyroidism: We will continue patient home levothyroxine regimen. #8. Diabetes mellitus type II: Holding oral regimen, maintain on ADA diet until n.p.o. status, accu checks w/ ISS. Noted most recent HgbA1c 6.4% on 04/05/21. #9. DVT prophylaxis: SCDs, hold chemoprophylaxis for pending Orthopedic surgery evaluation for OR. #10. CODE status: Patient JOO is her son who is present for conversation and living will is currently in place. Discussed CODE status at length including difference between FULL code, DNR-CCA and DNR-CC status. Following discussions about the differences in these status, requested DNR-CCA, no intubation which was clarified and confirmed. Advanced Care Planning Face to Face Time: 16 minutes. Charges/Coding Visit Charges Inpatient E&M: 65736 Init Hosp L3 Procedures Hospitalists Procedures: 54782 Advncd Care Plan 30 Min
--- NOTE | 2021-09-04 21:28 | EKG12_ITS ---
Test Reason : DYSRHYTHMIA Blood Pressure : / mmHG Vent. Rate : 089 BPM Atrial Rate : 089 BPM P-R Int : 136 ms QRS Dur : 070 ms QT Int : 358 ms P-R-T Axes : 059 026 033 degrees QTc Int : 435 ms Normal sinus rhythm Nonspecific ST abnormality Abnormal ECG Confirmed by IRIS DOWNING, ARMINDA ([id number]), school photograph editor NATALI PENN ([id number]) on 09/05/2021 11:25:16 A M Referred By: MARY GRACE Confirmed By:SHERYL SIMMONS MD
--- NOTE | 2021-09-04 22:12 | CT_ITS ---
STUDY: CT BRAIN WITHOUT CONTRAST REASON FOR EXAM: Female, 75 years old. Vertigo, dizziness RADIATION DOSAGE (If Supplied By Facility): CTDIvol = ( 44.99 ) mGy, DLP = ( 782.05 ) mGycm TECHNIQUE: Transaxial CT imaging of the brain was performed without administration of intravenous contrast material. Individualized dose optimization techniques were used for this CT. COMPARISON: No relevant priors. FINDINGS: Normal soft tissue structures. Normal calvarium. Normal size ventricles and extra-axial spaces for the patient''s age. There are areas of decreased attenuation within the white matter tracts of the supratentorial brain, consistent with microvascular disease changes. Bilateral carotid atherosclerosis. There is no intracranial hemorrhage. There are no findings of an acute ischemic infarction. Normal visualized paranasal sinuses. CT/Brain/Head without Contrast IMPRESSION: No evidence of acute intracranial hemorrhage or injury. Mild senescent changes with atherosclerosis. Electronically Signed: Jean Branch MD at 23:13 EDT ,
[2021-09-04] MEDS: 0.9% Normal Saline 1,000 ML 100 ML IV (22:39)
[2021-09-04] MEDS: 0.9% Saline Lock 10 ML Syringe IV (22:50)
[2021-09-04] MEDS: Senna/Docusate Sodium 1 Tablet 2 TABLET PO (22:50)
[2021-09-04] MEDS: Atorvastatin Calcium 40 MG Tablet PO (22:50)
[2021-09-04 22:56] LABS: Bedside Glucose 111 mg/dL (74-106)
[2021-09-04 23:36] LABS: BNP,B-Type NATRIURETIC PEPTIDE 40.9 pg/mL (0-100)
[2021-09-04 23:45] LABS: ALB/GLOB Ratio 1.1 RATIO (0.9-2.4); AST(SGOT) 21 U/L (15-37); Alanine Aminotransfer ALT/SGPT 35 U/L (13-56); Albumin, Serum 3.9 g/dL (3.2-5.0); Alkaline Phosphatase 58 U/L (45-117); Anion Gap 9 (5-15); BUN 20 mg/dL (7-18); BUN/Creat Ratio 20.1 RATIO (10-20); Calcium,Total 9.1 mg/dL (8.5-10.1); Chloride 107 mmol/L (98-107); EST Glomerular Filtration Rate 58 mL/min (>60); Est Glom Filt Rate - Afr Amer 70 mL/min (>60); Estimated Creatinine Clearance 43.74 ml/min; Globulin 3.7 g/dL (2.2-4.2); Glucose 156 mg/dL (74-106); Potassium 3.9 mmol/L (3.5-5.1); Protein, Total 7.6 g/dL (6.4-8.2); Sodium Level 139 mmol/L (136-145); Troponin-I HS < 3 pg/mL (3.0-54.0)
[2021-09-04 23:51] LABS: Vitamin D,25 Hydroxy 60.8 ng/mL
[2021-09-05] VITALS (18 sets, daily range): BP systolic 127–152; BP diastolic 66–84; PULSE 82–97; RESP 14–18; TEMP 36.7–37.1; O2SAT 90–97; BMI 26.3
[2021-09-05] MEDS: traMADol 50 MG Tablet PO ×3 (00:02→22:24)
[2021-09-05] MEDS: Levothyroxine 100 MCG Tablet PO (06:08)
[2021-09-05 06:30] LABS: Absolute Lymphocyte Count 0.76 X10^3/uL (0.83-4.51); Absolute Neutrophil Count 9.6 X10^3/uL (2.0-7.7); Basophil# 0.04 X10^3/uL; Basophil% 0.4 % (0-1); Eosinophil# 0.13 X10^3/uL; Eosinophils% 1.2 % (0-5); Hematocrit 37.4 % (37-47); Lymphocyte # 0.76 X10^3/ul (0.83-4.51); Lymphocyte % 6.8 % (19-41); Mean Corp Hgb Conc 32.1 g/dL (32-36); Mean Corpuscular Volume 90.3 fL (81-99); Mean Platelet Vol. 11.4 fl (6.2-12.0); Monocyte% 6.2 % (0-10); NRBC Flagged by Analyzer 0 % (0-5); Neutrophil # 9.55 X10^3/uL (2.7-7.7); Neutrophil % 84.8 % (47-70); Platelet Count 203 K/mm3 (150-450); RBC Distribution Width CV 12.6 % (11.6-14.6); RBC Distribution Width SD 41.3 fl (35.1-43.9); Red Blood Count 4.14 M/mm3 (4.2-5.4); White Blood Count 11.3 K/mm3 (4.4-11.0)
--- NOTE | 2021-09-05 06:40 | RAD_ITS ---
STUDY: X-RAY - RIGHT HIP REASON FOR EXAM: Female, 75 years old. Cutaneous pinning. TECHNIQUE: 6 intraoperative views of the right hip COMPARISON: Pelvis and right hip, 09/04/2021. FINDINGS: Provided images again demonstrate the transverse fractures through the right femoral neck. Subsequent images demonstrate placement of 3 gamma nails through the fracture. There is no change in alignment. There is no dislocation. Please refer to the operative report for further details. RAD/Hip 1 view with Pelvis IMPRESSION: Internal fixation of a right femoral neck fracture in the OR. Electronically Signed: Az Morris DO at 20:08 EDT ,
[2021-09-05 07:02] LABS: ALB/GLOB Ratio 1.1 RATIO (0.9-2.4); AST(SGOT) 14 U/L (15-37); Alanine Aminotransfer ALT/SGPT 27 U/L (13-56); Albumin, Serum 3.5 g/dL (3.2-5.0); Alkaline Phosphatase 49 U/L (45-117); Anion Gap 7 (5-15); BUN 17 mg/dL (7-18); Calcium,Total 8.7 mg/dL (8.5-10.1); Chloride 108 mmol/L (98-107); Creatinine, Serum 0.81 mg/dL (0.55-1.02); EST Glomerular Filtration Rate 73 mL/min (>60); Est Glom Filt Rate - Afr Amer 89 mL/min (>60); Globulin 3.3 g/dL (2.2-4.2); Glucose 162 mg/dL (74-106); Potassium 3.9 mmol/L (3.5-5.1); Protein, Total 6.8 g/dL (6.4-8.2); Sodium Level 137 mmol/L (136-145)
[2021-09-05 07:10] LABS: Bedside Glucose 132 mg/dL (74-106)
[2021-09-05 07:15] LABS: Thyroid Stim Hormone (TSH) 0.69 uIU/mL (0.358-3.74)
[2021-09-05] MEDS: Lisinopril 5 MG Tablet PO (09:16)
[2021-09-05] MEDS: Metoprolol(XL)Succ 25 MG Tablet PO (09:16)
[2021-09-05] MEDS: Fluticasone 0.05% 1 SPRAY NASAL.SRY 2 SPRAY NASAL (09:16)
--- NOTE | 2021-09-05 09:56 | PN.HOSP_ITS ---
Documented by User: Alondra Elder NP, SOFT CRAB SHEDDER-C 09/05/21 10:13 Subjective Subjective Patient seen and examined. Pain currently controlled. Plan for OR this afternoon. States she has had nausea with morphine in the past. Denies other symptoms or complaints. Objective Data Objective Data Vital Signs: Vital Signs Temp Pulse Resp BP Pulse Ox O2 Del Method 98.2 F 82 18 132/66 H 95 Room Air 09/05/21 09:13 09/05/21 09:16 09/05/21 09:13 09/05/21 09:16 09/05/21 09:13 09/05/21 09:40 Oxygen Delivery Method Room Air Weight: 158 lb 1.143 oz Body Mass Index (BMI) 26.3 Intake & Output: Intake and Output for Last 24 Hours 09/03/21 09/04/21 09/05/21 23:59 23:59 23:59 Output Total 900 / 900 Balance -900 / -900 Lab / Micro Data Result Diagrams: 09/05/21 05:42 09/05/21 05:42 Labs: Laboratory Results - last 24 hr 09/04/21 20:26: WBC 14.2 H, RBC 4.45, Hgb 13.3, Hct 40.7, MCV 91.5, MCH 29.9, MCHC 32.7, RDW Std Deviation 41.8, RDW Coeff of Aditya 12.5, Plt Count 230, MPV 11.2, Immature Gran % (Auto) 0.800, Neut % (Auto) 80.3 H, Lymph % (Auto) 10.2 L, [place] % (Auto) 6.5, Eos % (Auto) 1.8, Baso % (Auto) 0.4, Absolute Neuts (auto) 11.4 H, Absolute Lymphs (auto) 1.44, Nucleated RBC % 0 09/04/21 20:26: Sodium 141, Potassium 3.7, Chloride 107, Carbon Dioxide 26.0, Anion Gap 8, BUN 22 H, Creatinine 1.03 H, Estim Creat Clear Calc 42.47, Est GFR (MDRD) Af Amer 67, Est GFR (MDRD) Non-Af 55 L, BUN/Creatinine Ratio 21.4 H, Glucose 117 H, Calcium 9.3 09/04/21 20:26: B-Natriuretic Peptide 40.9 09/04/21 20:41: Urine Color Yellow, Urine Clarity Sl. Cloudy, Urine pH 6.0, Ur Specific [place] 1.015, Urine Protein Negative, Urine Glucose (UA) Normal, Urine Ketones 5 H, Urine Occult Blood Negative, Urine Nitrite Negative, Urine Mitch irubin Negative, Urine Urobilinogen Normal, Ur Leukocyte Esterase 100 H, Urine RBC 0 SEEN, Urine WBC 5-10 SEEN, Ur Squamous Epith Cells 0-5 SEEN, Urine Bacteria 0 SEEN, Urine Mucus 0 SEEN 09/04/21 22:50: POC Glucose 111 H 09/04/21 23:20: Sodium 139, Potassium 3.9, Chloride 107, Carbon Dioxide 23.0, Anion Gap 9, BUN 20 H, Creatinine 1.00, Estim Creat Clear Calc 43.74, Est GFR (MDRD) Af Amer 70, Est GFR (MDRD) Non-Af 58 L, BUN/Creatinine Ratio 20.1 H, Glucose 156 H, Calcium 9.1, Total Bilirubin 0.40, AST 21, ALT 35, Alkaline Phosphatase 58, Troponin I High Sens < 3 L, Total Protein 7.6, Albumin 3.9, Globulin 3.7, Albumin/Globulin Ratio 1.1 09/04/21 23:20: Vitamin D 25-Hydroxy 60.8 09/05/21 05:42: WBC 11.3 H, RBC 4.14 L, Hgb 12.0, Hct 37.4, MCV 90.3, MCH 29.0, MCHC 32.1, RDW Std Deviation 41.3, RDW Coeff of Aditya 12.6, Plt Count 203, MPV 11.4, Immature Gran % (Auto) 0.600, Neut % (Auto) 84.8 H, Lymph % (Auto) 6.8 L, [place] % (Auto) 6.2, Eos % (Auto) 1.2, Baso % (Auto) 0.4, Absolute Neuts (auto) 9.6 H, Absolute Lymphs (auto) 0.76 L, Nucleated RBC % 0 09/05/21 05:42: Sodium 137, Potassium 3.9, Chloride 108 H, Carbon Dioxide 22.0, Anion Gap 7, BUN 17, Creatinine 0.81, Estim Creat Clear Calc 54.00, Est GFR (MDRD) Af Amer 89, Est GFR (MDRD) Non-Af 73, BUN/Creatinine Ratio 21.0 H, Glucose 162 H, Calcium 8.7, Total Bilirubin 0.70, AST 14 L, ALT 27, Alkaline Phosphatase 49, Total Protein 6.8, Albumin 3.5, Globulin 3.3, Albumin/Globulin Ratio 1.1 09/05/21 05:42: TSH 0.69 09/05/21 06:18: Blood Type B POSITIVE, Antibody Screen NEGATIVE 09/05/21 07:05: POC Glucose 132 H Radiography Diagnostic Testing: Radiology Impression Hip/Pelvis X-Ray 09/04/21 16:50 IMPRESSION: 1. Impacted right femoral neck fracture. 2. No other fractures or dislocations. 3. No significant arthritic or degenerative changes. 4. Mild demineralization. Electronically Signed: Jarod Mary MD at 17:42 EDT , Brain CT 09/04/21 22:12 IMPRESSION: No evidence of acute intracranial hemorrhage or injury. Mild senescent changes with atherosclerosis. Electronically Signed: Jean Branch MD at 23:13 EDT , Physical Exam Const alert, oriented x3 and no apparent distress Orientation / Consciousness: awake, oriented to person, oriented to place and oriented to time HEENT normocephalic and moist oral mucous membranes Eyes PERRL, EOMs intact bilaterally and conjunctivae normal Neck no lymphadenopathy Resp normal respiratory effort and clear to auscultation bilaterally Cardio regular rate, regular rhythm and no murmurs Peripheral Pulses: pulses 2+ throughout GI normal to inspection, nondistended, normoactive bowel sounds, non-tender and non-distended Extremity normal to inspection Skin no rashes or lesions noted Lesions: no lesions Rashes: no rashes Trauma: no lacerations or abrasions Neuro CN's II-XII intact bilaterally, no focal motor deficits, no sensory deficits noted and deep tendon reflexes 2+ bilaterally Psych mental status grossly normal and affect normal Assessment & Plan Assessment/Plan (1) Closed right hip fracture: PLAN: Plan 1. Acute traumatic right impacted femoral neck fracture secondary to mechanical fall, associated debility/intractable pain-orthopedic surgery consulted. Plan for OR this afternoon. PT/OT. As needed pain regimen. Cleared medically for OR. CM consult for DC planning. 2. Vertigo, suspect BPPV- CT brain unremarkable. Symptoms improved. If patient has recurrent symptoms, may use as needed meclizine. 3. CAD with history of PCI-continue aspirin, statin, metoprolol, lisinopril. 4. Hypertension-continue metoprolol, lisinopril. 5. Hyperlipidemia-continue statin. 6. History of iron deficiency anemia-appears stable, trend CBC. 7. Hypothyroidism-continue Synthroid. 8. Type 2 diabetes mellitus-oral regimen on hold. Accu-Cheks with sliding scale insulin. DVT prophylaxis-SCDs This patient was seen by Alondra Elder NP-Sahra under the supervision of Dr. Sullivan. Time spent examining patient, reviewing data and subsequent management of care: 15 Minutes Documented by User: Dr. Yordan Aaron DO 09/05/21 19:29 Objective Data Lab / Micro Data Result Diagrams: 09/05/21 05:42 09/05/21 05:42 Assessment & Plan Assessment/Plan (1) Closed right hip fracture: Charges/Coding Addendum Addendum: Patient was seen and examined today independently of Alondra Elder, she was s cheduled to have her right hip fracture repair today, I talked briefly with orthopedic surgery, they plan to use screws and a plate to stabilize the hip. Patient has a history of coronary artery disease-she had 2 stents placed in 2016, she states that her last visit with her operations processor a few months ago, she was medically stable. On examination she appeared in good health and spirits, she does not appear to be in any distress. Vital signs as documented. Skin warm and dry and without overt rashes. Neck without JVD, thyroid appears normal, trachea is midline, neck is supple. Lungs clear, normal air movement was noted. Heart exam notable for regular rhythm, normal sounds and absence of murmurs, rubs or gallops. Abdomen unremarkable and without evidence of organomegaly, masses, or abdominal aortic enlargement, bowel sounds are present in all 4 quadrants, no abdominal tenderness was noted. Extremities nonedematous, no cyanosis was noted, no clubbing was noted. Neuro: Cranial nerves II through XII are grossly intact, no focal motor deficits were noted, sensation to light touch and pinprick is intact, motor exam 5/5 throughout. Psych: Patient is alert and oriented x3, she does not appear anxious or depressed, she does not appear agitated. Impression: #1 minimally displaced right femoral neck fracture-patient appears stable for surgery at this time, she will need PT and OT evaluation, patient states she intends to go home upon discharge from the hospital. #2 coronary artery disease-this appears stable at this time, continue present medications #3 type 2 diabetes-patient's blood sugars will be monitored, sliding scale insulin will be used as needed #4 essential hypertension-patient will remain on her present medications #5 hypothyroidism-patient will remain on Synthroid #6 hyperlipidemia-patient is on statin I have reviewed Alondra Elder's progress note including her medical assessment and plan of care and with the above additions endorse it. Total clinical time spent by myself addressing the patient's medical issues, reviewing the data, and collaborating with patient's care team: 25 minutes Visit Charges Inpatient E&M: 28697 Subs Hosp L3
--- NOTE | 2021-09-05 10:43 | CASEMGMT ---
Social Work PCP: Dr Luther Specialists: Cardiology-Dr Green in [place] and Dr Schultz with [facility] Preferred Pharmacy:? [facility] in [place] Insurance: Medicare and [employer] Prescription Benefit: Yes with [employer] Living Will/HPOA: Yes. Her son Marcio is her Healthcare Power of Upholstery Department Supervisor. Patient is aware these are not on file at [facility] LNOK: sons Marcio and Manny Living Arrangements:? Patient's sister lives with patient. They live in a 1 story home with 1 entry step. IADL's and ADL's: Patient is normally completely independent with all activities of daily living. Transportation: Patient normally drives. DME:?? crutches and bedside commode HHC/SNF: None Mental Health:? None Substance Use:? None Community Resources:? None Plan:? SW met with patient, introduced self and role at [facility]. SW completed assessment with patient and then discussed d/c plan. SW let patient know that most of the time patients that have hip fractures have to go to a half-way facility for short term rehab. SW provided a list of SNF providers including quality and resource use data and consistent with the patient?s preferred geographic region, medical needs, and insurance network. SW also told patient about [facility] 4th floor Acute Rehab Unit. Patient understands and would likely prefer the rehab unit at discharge, but will see how she does with therapy after surgery. SW let patient know SW will continue to follow and assist with d/c planning. Vanna GAVIRIA
--- NOTE | 2021-09-05 12:10 | CON.PCM.CA_ITS ---
Assessment & Plan Assessment/Plan (1) Pre-operative cardiovascular examination: PLAN: Patient denies any significant cardiac complaints. She has past history of CAD status post PCI. She apparently has preserved EF. She had good functi onal capacity prior to recent knee injury. Overall she does not need any further cardiac evaluation prior to hip surgery. She would be considered to be at low risk for perioperative cardiac complications from the procedure. HPI Consult Data Date of Consult: 09/05/21 PCP / Referring MD: Dr. Rani HPI Narrative Reason for Consultation: Preop evaluation HPI Narrative: JEREL ROSA, is a 75 F who presents with a fall and hip fracture. Cardiology consult was requested for preoperative cardiac evaluation. Patient had an OK in 2016 and was treated with 2 stents at [facility]. She states that she was told that she did not have any significant damage. It appears that her EF was preserved. She also denies any significant valvular issues. She had good functional capacity till recently when she injured her knee while bowling. Review of systems: All systems reviewed. All else is negative except that in the HPI. [facility] Medical History (Updated 09/05/21 @ 12:[address] Aaron Shell MD) Allergic rhinitis CAD (coronary artery disease) Diabetes High cholesterol HTN (hypertension) Hypothyroid Home Medications aspirin 81 mg tablet,delayed release (Adult Low Dose Aspirin) 81 mg PO DAILY 05/22/15 [History Last Taken Unknown] atorvastatin 40 mg tablet 40 mg PO QHS HLD 05/22/15 [History Last Taken Unknown] lisinopril 5 mg tablet 5 mg PO DAILY 05/22/15 [History Last Taken Unknown] fluticasone propionate 50 mcg/actuation nasal spray,suspension 2 ea intranasal DAILY 09/04/21 [History Last Taken Unknown] levothyroxine 100 mcg tablet 100 mcg PO DAILY 09/04/21 [History Last Taken Unknown] metformin 500 mg tablet 500 mg PO BID DM 09/04/21 [History Last Taken Unknown] metoprolol succinate 25 mg tablet,extended release 24 hr 25 mg PO DAILY 09/04/21 [History Last Taken Unknown] Allergy/AdvReac Type Severity Reaction Status Date / Time acetaminophen [From Tylenol] AdvReac Upset Verified 09/04/21 16:22 Stomach oxycodone AdvReac I FEEL Verified 03/23/15 11:57 WACKED OUT Penicillins [PCN] AdvReac I STAY Verified 03/23/15 11:57 AWAY, MY DAD WAS ALLERGIC Family History Mother Colon cancer CAD (coronary artery disease) Heart disease Hypertension Father Heart disease Hypertension Diabetes CHF (congestive heart failure) Surgical History History of bilateral tubal ligation Hx of heart artery stent S/P bilateral foot surgery Social History household members: other details: Her older sister lives with her. Smoking Status: Never smoker alcohol intake: never substance use type: does not use Physical Exam Const alert, oriented x3 and no apparent distress HEENT normocephalic Eyes no scleral icterus Resp normal respiratory effort and clear to auscultation bilaterally Cardio regular rate and regular rhythm Heart Sounds: S1 normal and S2 normal Psych mental status grossly normal Risk Stratification Risk Stratification Applicable: No Charges/Coding Visit Charges Inpatient E&M: 59020 Init Hosp L2 Objective Data Vital Signs: Vital Signs Temp Pulse Resp BP Pulse Ox O2 Del Method 98.2 F 82 18 132/66 H 95 Room Air 09/05/21 09:13 09/05/21 09:16 09/05/21 09:13 09/05/21 09:16 09/05/21 09:13 09/05/21 09:40 Oxygen Delivery Method Room Air Weight: 158 lb 1.143 oz Body Mass Index (BMI) 26.3 Intake & Output: Intake and Output for Last 24 Hours 09/03/21 09/04/21 09/05/21 23:59 23:59 23:59 Output Total 900 / 900 Balance -900 / -900 Lab / Micro Data Result Diagrams: 09/05/21 05:42 09/05/21 05:42 Labs: Laboratory Results - last 24 hr 09/04/21 20:26: WBC 14.2 H, RBC 4.45, Hgb 13.3, Hct 40.7, MCV 91.5, MCH 29.9, MCHC 32.7, RDW Std Deviation 41.8, RDW Coeff of Aditya 12.5, Plt Count 230, MPV 11.2, Immature Gran % (Auto) 0.800, Neut % (Auto) 80.3 H, Lymph % (Auto) 10.2 L, [place] % (Auto) 6.5, Eos % (Auto) 1.8, Baso % (Auto) 0.4, Absolute Neuts (auto) 11.4 H, Absolute Lymphs (auto) 1.44, Nucleated RBC % 0 09/04/21 20:26: Sodium 141, Potassium 3.7, Chloride 107, Carbon Dioxide 26.0, Anion Gap 8, BUN 22 H, Creatinine 1.03 H, Estim Creat Clear Calc 42.47, Est GFR (MDRD) Af Amer 67, Est GFR (MDRD) Non-Af 55 L, BUN/Creatinine Ratio 21.4 H, Glucose 117 H, Calcium 9.3 09/04/21 20:26: B-Natriuretic Peptide 40.9 09/04/21 20:41: Urine Color Yellow, Urine Clarity Sl. Cloudy, Urine pH 6.0, Ur Specific [place] 1.015, Urine Protein Negative, Urine Glucose (UA) Normal, Urine Ketones 5 H, Urine Occult Blood Negative, Urine Nitrite Negative, Urine Bili rowe Negative, Urine Urobilinogen Normal, Ur Leukocyte Esterase 100 H, Urine RBC 0 SEEN, Urine WBC 5-10 SEEN, Ur Squamous Epith Cells 0-5 SEEN, Urine Bacteria 0 SEEN, Urine Mucus 0 SEEN 09/04/21 22:50: POC Glucose 111 H 09/04/21 23:20: Sodium 139, Potassium 3.9, Chloride 107, Carbon Dioxide 23.0, Anion Gap 9, BUN 20 H, Creatinine 1.00, Estim Creat Clear Calc 43.74, Est GFR (MDRD) Af Amer 70, Est GFR (MDRD) Non-Af 58 L, BUN/Creatinine Ratio 20.1 H, Glucose 156 H, Calcium 9.1, Total Bilirubin 0.40, AST 21, ALT 35, Alkaline Phosphatase 58, Troponin I High Sens < 3 L, Total Protein 7.6, Albumin 3.9, Globulin 3.7, Albumin/Globulin Ratio 1.1 09/04/21 23:20: Vitamin D 25-Hydroxy 60.8 09/05/21 05:42: WBC 11.3 H, RBC 4.14 L, Hgb 12.0, Hct 37.4, MCV 90.3, MCH 29.0, MCHC 32.1, RDW Std Deviation 41.3, RDW Coeff of Aditya 12.6, Plt Count 203, MPV 11.4, Immature Gran % (Auto) 0.600, Neut % (Auto) 84.8 H, Lymph % (Auto) 6.8 L, [place] % (Auto) 6.2, Eos % (Auto) 1.2, Baso % (Auto) 0.4, Absolute Neuts (auto) 9.6 H, Absolute Lymphs (auto) 0.76 L, Nucleated RBC % 0 09/05/21 05:42: Sodium 137, Potassium 3.9, Chloride 108 H, Carbon Dioxide 22.0, Anion Gap 7, BUN 17, Creatinine 0.81, Estim Creat Clear Calc 54.00, Est GFR (MDRD) Af Amer 89, Est GFR (MDRD) Non-Af 73, BUN/Creatinine Ratio 21.0 H, Glucose 162 H, Calcium 8.7, Total Bilirubin 0.70, AST 14 L, ALT 27, Alkaline Phosphatase 49, Total Protein 6.8, Albumin 3.5, Globulin 3.3, Albumin/Globulin Ratio 1.1 09/05/21 05:42: TSH 0.69 09/05/21 06:18: Blood Type B POSITIVE, Antibody Screen NEGATIVE 09/05/21 07:05: POC Glucose 132 H Micro: Microbiology 09/05/21 09:58 Nasal Secretion SARS-CoV-2 Antigen (Rapid) - Final Cardiology Labs/Tests 09/04/21 20:26: WBC 14.2 H, RBC 4.45, Hgb 13.3, Hct 40.7, MCV 91.5, MCH 29.9, MCHC 32.7, Plt Count 230, MPV 11.2, Immature Gran % (Auto) 0.800, Neut % (Auto) 80.3 H, Lymph % (Auto) 10.2 L, [place] % (Auto) 6.5, Eos % (Auto) 1.8, Baso % (Auto) 0.4, Absolute Neuts (auto) 11.4 H, Nucleated RBC % 0 09/04/21 20:26: Sodium 141, Potassium 3.7, Chloride 107, Carbon Dioxide 26.0, Anion Gap 8, BUN 22 H, Creatinine 1.03 H, Est GFR (MDRD) Af Amer 67, Est GFR (MDRD) Non-Af 55 L, BUN/Creatinine Ratio 21.4 H, Glucose 117 H, Calcium 9.3 09/04/21 20:26: B-Natriuretic Peptide 40.9 09/04/21 20:41: Urine Color Yellow, Urine Clarity Sl. Cloudy, Urine pH 6.0, Ur Specific [place] 1.015, Urine Protein Negative, Urine Glucose (UA) Normal, Urine Ketones 5 H, Urine Occult Blood Negative, Urine Nitrite Negative, Urine Bilirubin Negative, Urine Urobilinogen Normal, Ur Leukocyte Esterase 100 H, Urine RBC 0 SEEN, Urine WBC 5-10 SEEN 09/04/21 23:20: Sodium 139, Potassium 3.9, Chloride 107, Carbon Dioxide 23.0, Anion Gap 9, BUN 20 H, Creatinine 1.00, Est GFR (MDRD) Af Amer 70, Est GFR (MDRD) Non-Af 58 L, BUN/Creatinine Ratio 20.1 H, Glucose 156 H, Calcium 9.1, Total Bilirubin 0.40 09/05/21 05:42: WBC 11.3 H, RBC 4.14 L, Hgb 12.0, Hct 37.4, MCV 90.3, MCH 29.0, MCHC 32.1, Plt Count 203, MPV 11.4, Immature Gran % (Auto) 0.600, Neut % (Auto) 84.8 H, Lymph % (Auto) 6.8 L, [place] % (Auto) 6.2, Eos % (Auto) 1.2, Baso % (Auto) 0.4, Absolute Neuts (auto) 9.6 H, Nucleated RBC % 0 09/05/21 05:42: Sodium 137, Potassium 3.9, Chloride 108 H, Carbon Dioxide 22.0, Anion Gap 7, BUN 17, Creatinine 0.81, Est GFR (MDRD) Af Amer 89, Est GFR (MDRD) Non-Af 73, BUN/Creatinine Ratio 21.0 H, Glucose 162 H, Calcium 8.7, Total Bilirubin 0.70 Rhythm: EKG: ECHO: Stress Test: Cardiac Cath: PCI: CT Surgery: Holter monitor: EPS: PPM: CXR: Chest CT Scan: Radiography Diagnostic Testing: Radiology Impression Hip/Pelvis X-Ray 09/04/21 16:50 IMPRESSION: 1. Impacted right femoral neck fracture. 2. No other fractures or dislocations. 3. No significant arthritic or degenerative changes. 4. Mild demineralization. Electronically Signed: Jarod Mary MD at 17:42 EDT , Brain CT 09/04/21 22:12 IMPRESSION: No evidence of acute intracranial hemorrhage or injury. Mild senescent changes with atherosclerosis. Electronically Signed: Jean Branch MD at 23:13 EDT ,
[2021-09-05] MEDS: 0.9% Saline Lock 10 ML Syringe IV (12:21)
[2021-09-05] MEDS: 0.9% Normal Saline 1,000 ML 100 ML IV ×2 (12:24→22:34)
[2021-09-05 12:35] LABS: Bedside Glucose 115 mg/dL (74-106)
--- NOTE | 2021-09-05 13:50 | CON.PCM_ITS ---
Assessment & Plan Assessment/Plan (1) Closed right hip fracture: PLAN: 1. Right hip nondisplaced femoral neck fracture: Case was discussed with Dr. Kenn Moreno. I discussed with the patient her fracture pattern and conservative versus surgical intervention. At this time we do recommend surgical intervention involving percutaneous pinning of the right hip. Patient will have limited weightbearing postoperatively. She will utilize walker. Patient denies any previous history of DVT or pulmonary embolism. Pain has been currently controlled on medications. Patient has had recent fall secondary to dizziness. She has had dizziness for the past [address] was normal. Patient has been cleared by medicine and cardiology to proceed with surgical intervention. I did discuss and review with the patient all treatment options including surgical versus nonsurgical. Patient wishes to proceed with above-stated procedure. Potential risks, benefits, and complications of this procedure were discussed in detail including but not limited to , infection, nerve and blood vessel damage, persistent pain, numbness, tingling, paresthesias, blood clot, pulmonary embolism, and requirement for further surgery. The patient expressed full understanding has no further questions for the doctor. Insert dragon HPI Consult Data Date of Consult: 09/05/21 HPI Narrative Reason for Consultation: Right hip femoral neck fracture HPI Narrative: JEREL ROSA, is a 75 F who presented to the emergency room at [facility] on September 04, 2021 secondary to a fall. Patient states she did have a dizziness episode in which this caused her to fall landing on the right lateral hip. She had immediate pain and was unable to bear weight. Prior to the fall she was having no hip pain. She states on August 24 while bowling she did have an injury to her right knee. She was seen her primary care physician for the right knee in which she was supposed to start physical therapy. Patient sustained a fall and has been unable to do so. She reports not hitting her head with the fall. A brain CT was normal. Case was discussed with the hospitalist and at this point okay for clearance for surgical intervention. Patient was also seen by cardiology who gave okay to proceed with surgery. Patient states her dizziness spells have been going on for approximately 3 weeks. She denies any chest pain, shortness of breath, fevers chills, weakness in her limbs. Denies any facial droop. Patient currently states the pain is controlled in the hospital. She denies any numbness and tingling down her leg. Her pain is primarily in the right anterior and lateral hip. She denies any thigh pain. Currently does not have pain in the knee while in the bed. Patient does have medical history pertinent for coronary artery disease with previous stents, type 2 diabetes mellitus with last A1c 6.4, hypercholesterolemia, hypertension, hypothyroidism. [facility] Medical History Allergic rhinitis CAD (coronary artery disease) Diabetes High cholesterol HTN (hypertension) Hypothyroid Home Medications aspirin 81 mg tablet,delayed release (Adult Low Dose Aspirin) 81 mg PO DAILY 05/22/15 [History Last Taken Unknown] atorvastatin 40 mg tablet 40 mg PO QHS HLD 05/22/15 [History Last Taken Unknown] lisinopril 5 mg tablet 5 mg PO DAILY 05/22/15 [History Last Taken Unknown] fluticasone propionate 50 mcg/actuation nasal spray,suspension 2 ea intranasal DAILY 09/04/21 [History Last Taken Unknown] levothyroxine 100 mcg tablet 100 mcg PO DAILY 09/04/21 [History Last Taken Unknown] metformin 500 mg tablet 500 mg PO BID DM 09/04/21 [History Last Taken Unknown] metoprolol succinate 25 mg tablet,extended release 24 hr 25 mg PO DAILY 09/04/21 [History Last Taken Unknown] Allergy/AdvReac Type Severity Reaction Status Date / Time acetaminophen [From Tylenol] AdvReac Upset Verified 09/04/21 16:22 Stomach oxycodone AdvReac I FEEL Verified 03/23/15 11:57 WACKED OUT Penicillins [PCN] AdvReac I STAY Verified 03/23/15 11:57 AWAY, MY DAD WAS ALLERGIC Family History Mother Colon cancer CAD (coronary artery disease) Heart disease Hypertension Father Heart disease Hypertension Diabetes CHF (congestive heart failure) Surgical History History of bilateral tubal ligation Hx of heart artery stent S/P bilateral foot surgery Social History household members: other details: Her older sister lives with her. Smoking Status: Never smoker alcohol intake: never substance use type: does not use ROS ROS Narrative Patient is currently alert and oriented x3 in no acute distress. Pain is well controlled. Patient denies any chest pain, shortness of breath, fevers chills, nausea or vomiting. She does get intermittent dizziness with movement of her head. Musculoskeletal Musculoskeletal: Reports difficulty walking and limited range of motion Physical Exam Narrative On exam this is a pleasant 75-year-old female in no acute distress. She is resting in bed upon examination. No family members are present. Patient currently has tenderness to palpation over the right anterior and lateral hip. Right hip is soft and supple. She currently has no pain in the right knee. She does report pain in the right knee with ambulation. Patient range of motion of the hip was deferred secondary to fracture. Patient was able to plantarflex and dorsiflex actively. Sensation was intact to light touch to saphenous, sural, superficial/deep peroneal, and tibial distribution. Pulses are 2+ in ankle and foot. X-ray was reviewed which does reveal a right nondisplaced femoral neck fracture. No other fractures were appreciated. Const alert, oriented x3 and no apparent distress General Appearance: cooperative and comfortable Lab / Micro Data Result Diagrams: 09/05/21 05:42 09/05/21 05:42 Labs: Laboratory Results - last 24 hr 09/04/21 20:26: WBC 14.2 H, RBC 4.45, Hgb 13.3, Hct 40.7, MCV 91.5, MCH 29.9, MCHC 32.7, RDW Std Deviation 41.8, RDW Coeff of Aditya 12.5, Plt Count 230, MPV 11.2, Immature Gran % (Auto) 0.800, Neut % (Auto) 80.3 H, Lymph % (Auto) 10.2 L, [place] % (Auto) 6.5, Eos % (Auto) 1.8, Baso % (Auto) 0.4, Absolute Neuts (auto) 11.4 H, Absolute Lymphs (auto) 1.44, Nucleated RBC % 0 09/04/21 20:26: Sodium 141, Potassium 3.7, Chloride 107, Carbon Dioxide 26.0, Anion Gap 8, BUN 22 H, Creatinine 1.03 H, Estim Creat Clear Calc 42.47, Est GFR (MDRD) Af Amer 67, Est GFR (MDRD) Non-Af 55 L, BUN/Creatinine Ratio 21.4 H, Glucose 117 H, Calcium 9.3 09/04/21 20:26: B-Natriuretic Peptide 40.9 09/04/21 20:41: Urine Color Yellow, Urine Clarity Sl. Cloudy, Urine pH 6.0, Ur Specific [place] 1.015, Urine Protein Negative, Urine Glucose (UA) Normal, Urine Ketones 5 H, Urine Occult Blood Negative, Urine Nitrite Negative, Urine Bilirubin Negative, Urine Urobilinogen Normal, Ur Leukocyte Esterase 100 H, Urine RBC 0 SEEN, Urine WBC 5-10 SEEN, Ur Squamous Epith Cells 0-5 SEEN, Urine Bacteria 0 SEEN, Urine Mucus 0 SEEN 09/04/21 22:50: POC Glucose 111 H 09/04/21 23:20: Sodium 139, Potassium 3.9, Chloride 107, Carbon Dioxide 23.0, Anion Gap 9, BUN 20 H, Creatinine 1.00, Estim Creat Clear Calc 43.74, Est GFR (MDRD) Af Amer 70, Est GFR (MDRD) Non-Af 58 L, BUN/Creatinine Ratio 20.1 H, Gl ucose 156 H, Calcium 9.1, Total Bilirubin 0.40, AST 21, ALT 35, Alkaline Phosphatase 58, Troponin I High Sens < 3 L, Total Protein 7.6, Albumin 3.9, Globulin 3.7, Albumin/Globulin Ratio 1.1 09/04/21 23:20: Vitamin D 25-Hydroxy 60.8 09/05/21 05:42: WBC 11.3 H, RBC 4.14 L, Hgb 12.0, Hct 37.4, MCV 90.3, MCH 29.0, MCHC 32.1, RDW Std Deviation 41.3, RDW Coeff of Aditya 12.6, Plt Count 203, MPV 11.4, Immature Gran % (Auto) 0.600, Neut % (Auto) 84.8 H, Lymph % (Auto) 6.8 L, [place] % (Auto) 6.2, Eos % (Auto) 1.2, Baso % (Auto) 0.4, Absolute Neuts (auto) 9.6 H, Absolute Lymphs (auto) 0.76 L, Nucleated RBC % 0 09/05/21 05:42: Sodium 137, Potassium 3.9, Chloride 108 H, Carbon Dioxide 22.0, Anion Gap 7, BUN 17, Creatinine 0.81, Estim Creat Clear Calc 54.00, Est GFR (MDRD) Af Amer 89, Est GFR (MDRD) Non-Af 73, BUN/Creatinine Ratio 21.0 H, Glucose 162 H, Calcium 8.7, Total Bilirubin 0.70, AST 14 L, ALT 27, Alkaline Phosphatase 49, Total Protein 6.8, Albumin 3.5, Globulin 3.3, Albumin/Globulin Ratio 1.1 09/05/21 05:42: TSH 0.69 09/05/21 06:18: Blood Type B POSITIVE, Antibody Screen NEGATIVE 09/05/21 07:05: POC Glucose 132 H 09/05/21 12:27: POC Glucose 115 H Micro: Microbiology 09/05/21 09:58 Nasal Secretion SARS-CoV-2 Antigen (Rapid) - Final Radiology Impression Hip/Pelvis X-Ray 09/04/21 16:50 IMPRESSION: 1. Impacted right femoral neck fracture. 2. No other fractures or dislocations. 3. No significant arthritic or degenerative changes. 4. Mild demineralization. Electronically Signed: Jarod Mary MD at 17:42 EDT , Brain CT 09/04/21 22:12 IMPRESSION: No evidence of acute intracranial hemorrhage or injury. Mild senescent changes with atherosclerosis. Electronically Signed: Jean Branch MD at 23:13 EDT , Procedure Criteria Type of Procedure Procedure Type: Elective (Right hip percutaneous pinning with insertion of cannulated screws) Elective Risks - COVID COVID Risk Discussion: The surgeon/proceduralist and patient have discussed in detail the risk of exposure to and/or potential harm posed by the COVID-19 virus with having a surgery/procedure at this time versus the risk of delaying the surgery/procedure. It is not possible to know either the risk of delaying the surgery or procedure or chance of getting an infection with perfect accuracy, but a joint decision was made between the patient and the surgeon/proceduralist to proceed at this time with the scheduled surgery/procedure as indicated on the consent form.
[2021-09-05] MEDS: Cefazolin 2 GM in 0.9% Normal Saline 100 ML IV (18:30)
--- NOTE | 2021-09-05 19:35 | PCM.OPRPT ---
Report of Operation Date of Procedure: 09/05/21 Pre-Operative Diagnosis: Right hip valgus impacted subcapital femoral neck fracture Post-Operative Diagnosis: Right hip valgus impacted subcapital femoral neck fracture Surgery/Procedure Performed:: Closed reduction percutaneous pinning right hip Description of Surgical Findings:: Stable reduction. Surgeon: Adam Moreno funds transfer clerk: None Type of Anesthesia: General Anesthesiologist: Jah Dinh Special Medications: 2 g Ancef Estimated Blood Loss (mL): 10 Fluids Replaced: 500 mL crystalloid Description of Procedure: On the date of procedure patient's right lower extremity is was marked in the preoperative area. The patient was then taken back to the operating room where they were placed on the fracture table in the supine position. All bony prominences were identified a well-padded. Anesthesia assumed control of the C-spine and airway and remained controlled throughout the remainder of the procedure. A perineal post was placed and the pts legs were positioned for appropriate fluoroscopic views. The left lower extremity was prepped in a sterile fashion using chlorhexidine. The surgeon scrubbed at this time. Upon reentering the room the right extremity was draped in a standard orthopedic fashion. A timeout was then called and everyone agreed upon the side, the site, the procedure to be performed, patient's identity and antibiotics given. Fluoroscopy was used to verify the starting position of the initial pin which was above the level of the lesser trochanter. The initial pin was inserted percutaneously placed and the pin team otr truck driver was used to drive the inferior pin using fluoroscopic guidance into the appropriate position. The appropriate position was verified on the AP we then confirmed it on the lateral. Once we're happy with the position of our initial pin an incision was made in line with the pin and the parallel pin guide were used to place the 2 superior pins along the anterior and posterior cortex of the femoral neck. Once all 3 pins were placed just beneath the subchondral bone of the femoral head the depth gauge was used to measure the length. The inferior screw was 90 mm, the anterior-superior screws was 85 mm and the posterior-superior screws was 90 mm . The drill was then used to perforate the lateral cortex. All 3 screws were then placed under fluoroscopic guidance and final tightening was done by hand. Final x-rays were then taken to verify the position of the screws and the final reduction. Copious irrigation was then used to irrigate out the wound. The wound was closed using 2-0 Vicryl and 4-0 Monocryl with Steri-Strips. A sterile dressing was placed with Xeroform. Patient was then awakened by anesthesia and transferred to the PACU for recovery. Post op plan PT: WBAT DVT ppx: ASA 81 mg twice daily for 4 weeks Follow up: 2 weeks for wound check Complications No intraoperative complications Admit VTE Documentation VTE Present on Admission: No VTE Mechan Device Prophylaxis: SCD's and Thigh High SKINNY Hose VTE Pharm Prophylaxis ordered?: Yes
--- NOTE | 2021-09-05 20:40 | EKG12_ITS ---
Test Reason : POST OP Blood Pressure : / mmHG Vent. Rate : 094 BPM Atrial Rate : 094 BPM P-R Int : 148 ms QRS Dur : 070 ms QT Int : 356 ms P-R-T Axes : 057 028 018 degrees QTc Int : 445 ms Normal sinus rhythm Normal ECG Confirmed by AMAN DOWNING, YUMI ([id number]), technical writer and editor NATALI PENN ([id number]) on 09/11/2021 8:42:02 AM Referred By: TIFFANY Confirmed By:YUMI NEWTON MD
--- NOTE | 2021-09-05 21:00 | RAD_ITS ---
STUDY: X-RAY - PELVIS AND RIGHT HIP REASON FOR EXAM: Female, 75 years old. Postop. TECHNIQUE: 2 views of the pelvis and hip. COMPARISON: Right hip, 09/05/2021) 1901). Pelvis and right hip, 09/04/2021 FINDINGS: There is a non-specific bowel gas pattern. Normal visualized soft tissue structures. Normal bilateral iliac wings, sacroiliac joints and visualized sacrum. Normal bilateral superior and inferior pubic rami. Normal pubic symphysis. Normal bilateral ischial tuberosities. There are now 3 gamma nails transfixing the right femoral head and neck. The femoral neck fracture is in normal alignment. Normal right acetabulum. Normal hip right joint. RAD/Hip Min 2 Views (Portable) IMPRESSION: Status post internal fixation of the right femoral neck fracture. Electronically Signed: Az Morris DO at 21:29 EDT ,
[2021-09-05 21:19] LABS: Troponin-I HS < 3 pg/mL (3.0-54.0)
[2021-09-05 22:15] LABS: Bedside Glucose 163 mg/dL (74-106)
[2021-09-05] MEDS: Cefazolin 1 GM/50 ML BAG IV (22:25)
[2021-09-05] MEDS: Atorvastatin Calcium 40 MG Tablet PO (22:33)
[2021-09-05] MEDS: Senna/Docusate Sodium 1 Tablet 2 TABLET PO (22:33)
[2021-09-05] MEDS: Aspirin 81 MG TAB.CHEW PO (22:34)
--- NOTE | 2021-09-06 01:17 | NURSING ---
Pt surgical dressing saturated w/ lg amt of sanguineous drainage. This RN redressed w/ dry sterile dressing and occlusive dressing on top. Will continue to monitor.
[2021-09-06 02:00] VITALS: BP 118/68; PULSE 82; RESP 16; TEMP 36.7; O2SAT 97
[2021-09-06] MEDS: Levothyroxine 100 MCG Tablet PO (05:09)
[2021-09-06] MEDS: traMADol 50 MG Tablet PO (05:09)
[2021-09-06] MEDS: Cefazolin 1 GM/50 ML BAG IV (05:09)
[2021-09-06 05:51] VITALS: BP 112/62; PULSE 74; RESP 18; TEMP 36.8; O2SAT 96
[2021-09-06 06:50] LABS: Bedside Glucose 136 mg/dL (74-106)
[2021-09-06 07:32] VITALS: O2SAT 96
[2021-09-06 09:00] VITALS: BP 104/53; PULSE 89; RESP 18; TEMP 36.5; O2SAT 92
[2021-09-06] MEDS: 0.9% Normal Saline 1,000 ML 100 ML IV (09:06)
[2021-09-06] MEDS: Aspirin E.C. 81 MG Tablet PO (09:08)
[2021-09-06] MEDS: Fluticasone 0.05% 1 SPRAY NASAL.SRY 2 SPRAY NASAL (09:08)
[2021-09-06] MEDS: Senna/Docusate Sodium 1 Tablet 2 TABLET PO (09:09)
[2021-09-06] MEDS: Famotidine 20 MG Tablet PO (09:09)
[2021-09-06 09:12] VITALS: BP 104/53; PULSE 89
[2021-09-06 10:09] LABS: Absolute Neutrophil Count 9.6 X10^3/uL (2.0-7.7); Basophil# 0.02 X10^3/uL; Basophil% 0.2 % (0-1); Eosinophil# 0.18 X10^3/uL; Eosinophils% 1.6 % (0-5); Hematocrit 35.7 % (37-47); Hemoglobin 11.5 g/dL (12.0-15.0); Lymphocyte % 5.3 % (19-41); Mean Corp Hgb Conc 32.2 g/dL (32-36); Mean Corpuscular Hgb 29.6 pg (27.0-32.0); Mean Corpuscular Volume 91.8 fL (81-99); Monocyte# 0.87 X10^3/uL; Monocyte% 7.6 % (0-10); NRBC Flagged by Analyzer 0 % (0-5); Neutrophil # 9.64 X10^3/uL (2.7-7.7); Neutrophil % 84.7 % (47-70); POSITIVE DIFFERENTIAL YES; Platelet Count 175 K/mm3 (150-450); RBC Distribution Width CV 12.5 % (11.6-14.6); RBC Distribution Width SD 41.9 fl (35.1-43.9); Red Blood Count 3.89 M/mm3 (4.2-5.4); White Blood Count 11.4 K/mm3 (4.4-11.0)
[2021-09-06 10:19] LABS: Differential Indicated SCAN CRITERIA MET
[2021-09-06 10:38] LABS: Anion Gap 8 (5-15); BUN 11 mg/dL (7-18); BUN/Creat Ratio 15.2 RATIO (10-20); Calcium,Total 8.1 mg/dL (8.5-10.1); Chloride 105 mmol/L (98-107); Creatinine, Serum 0.72 mg/dL (0.55-1.02); EST Glomerular Filtration Rate 83 mL/min (>60); Est Glom Filt Rate - Afr Amer 101 mL/min (>60); Estimated Creatinine Clearance 43.74 ml/min; Glucose 153 mg/dL (74-106); Potassium 3.6 mmol/L (3.5-5.1); Sodium Level 137 mmol/L (136-145)
[2021-09-06 10:46] LABS: Platelet Estimate ADEQUATE (ADEQ); Red Cell Morphology NORM C+C NORMAL (NORM C&C)
[2021-09-06 11:50] LABS: Bedside Glucose 136 mg/dL (74-106)
--- NOTE | 2021-09-06 11:58 | DCINST_ITS ---
Discharge Instructions Diet Discharge Diet: Low fat / Low cholesterol and Carb Control Diet Activity Discharge Activity: Return to Normal Activity Weight Bearing Status: Weight bearing as tolerated Dressing / Incision Call your doctor if your incision/area has: Continuous Slow Oozing, Sudden Increased Bleeding, Increased Pain/ Swelling, Increased Redness, Foul Smelling Discharge and Swelling at the incision site Call your doctor if you observe: Shortness of breath, Dizziness and Chest pain Follow Up Care Test Results: Test results from this visit will be discussed in further detail at your follow- up appointment, if applicable. Discharge Plan Admission Admit Date/Time: 09/04/21 21:24 Primary Reason for Your Visit: Right hip valgus impacted subcapital femoral neck fracture Attending Provider: Yordan Aaron Primary Care Provider: Jah Luther Consulting Providers: Adam Moreno ; Sophie Vega Discharge Orders/Prescriptions Prescriptions: New sennosides-docusate sodium [Stool Softener-Stimulant Laxat] 8.6-50 mg Tablet 2 tab PO BID PRN (Reason: constipation) Qty: 0 0RF tramadol 50 mg Tablet 50 - 100 mg PO Q6H PRN PRN (Reason: Pain Score 4-10) Qty: 0 0RF famotidine 20 mg Tablet 20 mg PO DAILY Qty: 0 0RF Rx Instructions: X4 weeks aspirin 81 mg Tablet,Chewable 81 mg PO BID Qty: 0 0RF Rx Instructions: X4 weeks then resume daily aspirin Continued atorvastatin 40 MG tablet 40 mg PO QHS lisinopril 5 MG tablet 5 mg PO DAILY levothyroxine 100 mcg tablet 100 mcg PO DAILY metoprolol succinate 25 mg tablet extended release 24 hr 25 mg PO DAILY fluticasone propionate 50 mcg/actuation spray,suspension 2 ea INTRANASAL DAILY metformin 500 mg Tablet 500 mg PO BID Held aspirin [Adult Low Dose Aspirin] 81 MG tablet,delayed release (DR/EC) 81 mg PO DAILY Hold Instructions: Resume on 10/04/21. Referrals / Follow Up: Jah Luther MD [Primary Care Provider] - In 1 Week Adam Moreno MD [STAFF PHYSICIAN] - Within 2 Weeks (in two weeks for wound check and follow up ) Disposition Disposition (needs filled in before D/C Order can be placed): Inpatient Rehab Unit/Facility
--- NOTE | 2021-09-06 12:16 | CASEMGMT ---
SW spoke with patient and gave her a pamphlet for the Inpatient Rehab Unit. Patient is aware she will go to the Rehab Unit today. Plan: d/c to [facility] 4th floor Acute Rehab Unit. Vanna GAVIRIA
--- NOTE | 2021-09-06 12:28 | DS.PCM_ITS ---
Documented by User: Alondra Elder NP, BENZENE WASHER OPERATOR-C 09/06/21 12:34 Providers Date of Admission: 09/04/21 Date of Discharge: 09/06/21 Primary Care Physician: Dr. Jah Luther MD Consultations 09/04/21 22:28 Consult: Orthopedics Routine Consulting Provider: Adam Moreno Reason for Consult: R hip fracture. EMERGENT Consult: No MD Notified: Yes Date Notified: 09/04/21 Time Notified: 21:29 Method of Notification: ED Physician Initiated Reason For Visit: R HIP FRACTURE, FALL Diagnosis Discharge Diagnosis (1) Closed right hip fracture: Status: Acute Code(s): S72.001A - Fracture of unspecified part of neck of right femur, initial encounter for closed fracture Medications at Discharge Home Medications aspirin 81 mg tablet,delayed release (Adult Low Dose Aspirin) 81 mg PO DAILY heart health 05/22/15 atorvastatin 40 mg tablet 40 mg PO QHS HLD 05/22/15 lisinopril 5 mg tablet 5 mg PO DAILY blood pressure 05/22/15 fluticasone propionate 50 mcg/actuation nasal spray,suspension 2 ea intranasal DAILY allergies 09/04/21 levothyroxine 100 mcg tablet 100 mcg PO DAILY thyroid 09/04/21 metformin 500 mg tablet 500 mg PO BID DM 09/04/21 metoprolol succinate 25 mg tablet,extended release 24 hr 25 mg PO DAILY blood pr essure 09/04/21 aspirin 81 mg chewable tablet 81 mg PO BID blood thinner 09/06/21 famotidine 20 mg tablet 20 mg PO DAILY gerd 09/06/21 tramadol 50 mg tablet 50 - 100 mg PO Q6H PRN PRN Pain Score 4-10 #0 tabs 09/06/21 Hospital Course Operations - (Closed reduction percutaneous pinning right hip) Procedures None Summary of Care Provided Hospital Course: Patient is a 75-year-old female admitted 09/04/2021 due to fall with right hip pain. 1.? Acute traumatic right impacted femoral neck fracture secondary to mechanical fall, associated debility/intractable pain-status post closed reduction percutaneous pinning right hip 09/05/2021.? Rehab unit at discharge. As needed pain regimen. Follow-up with orthopedic medicine in 2 weeks. Aspirin 81 mg twice daily for DVT prophylaxis per surgery recommendations. Weightbearing as tolerated. 2. Vertigo, suspect BPPV- CT brain unremarkable.? Symptoms improved.? If patient has recurrent symptoms, may use as needed meclizine and initiate vestibular therapy per PT. 3.? CAD with history of PCI-continue aspirin, statin, metoprolol, lisinopril. 4.? Hypertension-continue metoprolol, lisinopril. 5.? Hyperlipidemia-continue statin. 6.? History of iron deficiency anemia-appears stable. 7.? Hypothyroidism-continue Synthroid. 8.? Type 2 diabetes mellitus-resume oral regimen.? Accu-Cheks with sliding scale insulin. Physical Exam Const alert, oriented x3 and no apparent distress Orientation / Consciousness: awake, oriented to person, oriented to place and oriented to time HEENT normocephalic and moist oral mucous membranes Eyes PERRL, EOMs intact bilaterally and conjunctivae normal Neck no lymphadenopathy Resp normal respiratory effort and clear to auscultation bilaterally Cardio regular rate, regular rhythm and no murmurs Peripheral Pulses: pulses 2+ throughout GI normal to inspection, nondistended, normoactive bowel sounds, non-tender and non-distended Extremity normal to inspection Skin no rashes or lesions noted Lesions: no lesions Rashes: no rashes Trauma: no lacerations or abrasions Right hip postop dressing intact Neuro CN's II-XII intact bilaterally, no focal motor deficits, no sensory deficits noted and deep tendon reflexes 2+ bilaterally Psych mental status grossly normal and affect normal Patient seen and examined prior to discharge. Physical assessment as noted above. Patient is stable for discharge with follow up recommendations as noted above. This patient was seen by CHESTER Swain under the supervision of Dr. Aaron. Time spent examining patient, reviewing data and subsequent management of care: 24 minutes Weight / BMI Weight Weight: 160 lb 7.944 oz Body Mass Index (BMI) 26.3 ABG / Lab / Microbiology Data Result Diagrams: 09/06/21 09:40 09/06/21 09:40 Laboratory: Laboratory Results - last 24 hr 09/05/21 12:27: POC Glucose 115 H 09/05/21 20:36: Troponin I High Sens < 3 L 09/05/21 21:58: POC Glucose 163 H 09/06/21 06:37: POC Glucose 136 H 09/06/21 09:40: WBC 11.4 H, RBC 3.89 L, Hgb 11.5 L, Hct 35.7 L, MCV 91.8, MCH 29.6, MCHC 32.2, RDW Std Deviation 41.9, RDW Coeff of Aditya 12.5, Plt Count 175, MPV 11.0, Immature Gran % (Auto) 0.600, Neut % (Auto) 84.7 H, Lymph % (Auto) 5.3 L, [place] % (Auto) 7.6, Eos % (Auto) 1.6, Baso % (Auto) 0.2, Absolute Neuts (auto) 9.6 H, Absolute Lymphs (auto) 0.60 L, Nucleated RBC % 0, Differential Comment , Platelet Estimate ADEQUATE, RBC Morphology NORM C+C 09/06/21 09:40: Sodium 137, Potassium 3.6, Chloride 105, Carbon Dioxide 24.0, Anion Gap 8, BUN 11, Creatinine 0.72, Estim Creat Clear Calc 43.74, Est GFR (MDRD) Af Amer 101, Est GFR (MDRD) Non-Af 83, BUN/Creatinine Ratio 15.2, Glucose 153 H, Calcium 8.1 L 09/06/21 11:28: POC Glucose 136 H Microbiology: Microbiology 09/05/21 09:58 Nasal Secretion SARS-CoV-2 Antigen (Rapid) - Final Radiography Diagnostic Testing: Radiology Impression Hip/Pelvis X-Ray 09/05/21 06:40 IMPRESSION: Internal fixation of a right femoral neck fracture in the OR. Electronically Signed: Az Morris DO at 20:08 EDT Reading Location ID and State: [place] / [place] Tel [phone], Service support , Hip X-Ray 09/05/21 21:00 IMPRESSION: Status post internal fixation of the right femoral neck fracture. Electronically Signed: Az Morris DO at 21:29 EDT Reading Location ID and State: [place] / [place] Tel [phone], Service support , D/C Instructions Discharge Diet: Low fat / Low cholesterol and Carb Control Diet Weight Bearing Status: Weight bearing as tolerated Call your doctor if your incision/area has: Continuous Slow Oozing, Sudden Increased Bleeding, Increased Pain/ Swelling, Increased Redness, Foul Smelling Discharge and Swelling at the incision site Call your doctor if you observe: Shortness of breath, Dizziness and Chest pain Meaningful Use Info Meaningful Use Diagnoses (Choose all that apply): None applicable Discharge Plan Admission Admit Date/Time: 09/04/21 21:24 Primary Reason for Your Visit: Right hip valgus impacted subcapital femoral neck fracture Attending Provider: Yordan Aaron Primary Care Provider: Jah Luther Consulting Providers: Adam Moreno ; Sophie Vega Discharge Orders/Prescriptions Prescriptions: New tramadol 50 mg Tablet 50 - 100 mg PO Q6H PRN PRN (Reason: Pain Score 4-10) Qty: 0 0RF Continued atorvastatin 40 MG tablet 40 mg PO QHS lisinopril 5 MG tablet 5 mg PO DAILY levothyroxine 100 mcg tablet 100 mcg PO DAILY metoprolol succinate 25 mg tablet extended release 24 hr 25 mg PO DAILY fluticasone propionate 50 mcg/actuation spray,suspension 2 ea INTRANASAL DAILY metformin 500 mg Tablet 500 mg PO BID Held aspirin [Adult Low Dose Aspirin] 81 MG tablet,delayed release (DR/EC) 81 mg PO DAILY Hold Instructions: Resume on 10/04/21. No Action famotidine 20 mg tablet 20 mg PO DAILY Rx Instructions: X4 weeks aspirin 81 mg tablet,chewable 81 mg PO BID Rx Instructions: X4 weeks then resume daily aspirin Referrals / Follow Up: Jah Luther MD [Primary Care Provider] - In 1 Week Adam Moreno MD [STAFF PHYSICIAN] - Within 2 Weeks (in two weeks for wound check and follow up ) Disposition Disposition (needs filled in before D/C Order can be placed): Inpatient Rehab Unit/Facility Documented by User: Dr. Yordan Aaron DO 09/06/21 20:03 Providers Date of Admission: 09/04/21 Reason For Visit: R HIP FRACTURE, FALL Diagnosis Discharge Diagnosis (1) Closed right hip fracture: Status: Acute Code(s): S72.001A - Fracture of unspecified part of neck of right femur, initial encounter for closed fracture Medications at Discharge Home Medications aspirin 81 mg tablet,delayed release (Adult Low Dose Aspirin) 81 mg PO DAILY heart health 05/22/15 atorvastatin 40 mg tablet 40 mg PO QHS HLD 05/22/15 lisinopril 5 mg tablet 5 mg PO DAILY blood pressure 05/22/15 fluticasone propionate 50 mcg/actuation nasal spray,suspension 2 ea intranasal DAILY allergies 09/04/21 levothyroxine 100 mcg tablet 100 mcg PO DAILY thyroid 09/04/21 metformin 500 mg tablet 500 mg PO BID DM 09/04/21 metoprolol succinate 25 mg tablet,extended release 24 hr 25 mg PO DAILY blood pressure 09/04/21 aspirin 81 mg chewable tablet 81 mg PO BID blood thinner 09/06/21 famotidine 20 mg tablet 20 mg PO DAILY gerd 09/06/21 tramadol 50 mg tablet 50 - 100 mg PO Q6H PRN PRN Pain Score 4-10 #0 tabs 09/06/21 ABG / Lab / Microbiology Data Result Diagrams: 09/06/21 09:40 09/06/21 09:40 Discharge Plan Admission Admit Date/Time: 09/04/21 21:24 Primary Reason for Your Visit: Right hip valgus impacted subcapital femoral neck fracture Attending Provider: Yordan Aaron Primary Care Provider: Jah Luther Consulting Providers: Adam Moreno ; Sophie Vega Discharge Orders/Prescriptions Prescriptions: New tramadol 50 mg Tablet 50 - 100 mg PO Q6H PRN PRN (Reason: Pain Score 4-10) Qty: 0 0RF Continued atorvastatin 40 MG tablet 40 mg PO QHS lisinopril 5 MG tablet 5 mg PO DAILY levothyroxine 100 mcg tablet 100 mcg PO DAILY metoprolol succinate 25 mg tablet extended release 24 hr 25 mg PO DAILY fluticasone propionate 50 mcg/actuation spray,suspension 2 ea INTRANASAL DAILY metformin 500 mg Tablet 500 mg PO BID Held aspirin [Adult Low Dose Aspirin] 81 MG tablet,delayed release (DR/EC) 81 mg PO DAILY Hold Instructions: Resume on 10/04/21. No Action famotidine 20 mg tablet 20 mg PO DAILY Rx Instructions: X4 weeks aspirin 81 mg tablet,chewable 81 mg PO BID Rx Instructions: X4 weeks then resume daily aspirin Referrals / Follow Up: Jah Luther MD [Primary Care Provider] - In 1 Week Adam Moreno MD [STAFF PHYSICIAN] - Within 2 Weeks (in two weeks for wound check and follow up ) Disposition Disposition (needs filled in before D/C Order can be placed): Inpatient Rehab Unit/Facility Charges/Coding Addendum Addendum: Patient was seen and examined today independently of Alondra Elder, she has consented to go to the [facility] rehab center for inpatient rehab services, she is afraid to go home from the hospital fearing that she might fall or not be able to take care of her self. I talked with orthopedic surgery about transferring her today and they stated that it was okay with their service. On examination she appeared in good health and spirits, she does not appear to be in any distress. Vital signs as documented. Skin warm and dry and without overt rashes. Neck without JVD, thyroid appears normal, trachea is midline, neck is supple. Lungs clear, normal air movement was noted. Heart exam notable for regular rhythm, normal sounds and absence of murmurs, rubs or gallops. Abdomen unremarkable and without evidence of organomegaly, masses, or abdominal aortic e nlargement, bowel sounds are present in all 4 quadrants, no abdominal tenderness was noted. Extremities nonedematous, no cyanosis was noted, no clubbing was noted. Neuro: Cranial nerves II through XII are grossly intact, no focal motor deficits were noted, sensation to light touch and pinprick is intact, motor exam 5/5 throughout. Psych: Patient is alert and oriented x3, she does not appear anxious or depressed, she does not appear agitated. Impression: #1 right femoral neck fracture secondary to osteoporosis #2 coronary artery disease #3 type 2 diabetes #4 essential hypertension #5 hypothyroidism #6 hyperlipidemia Patient appears stable for discharge to the rehab unit at [facility]. I have reviewed Alondra Elder's discharge summary including her medical assessment and plan of care and with the above additions endorse it. Total clinical time spent by myself addressing the patient's medical issues, reviewing the data, and collaborating with patient's care team: 25 minutes Visit Charges Inpatient E&M: [id number] Disch Hosp
[2021-09-06 12:49] VITALS: BP 104/53; PULSE 89; RESP 18; TEMP 36.5; O2SAT 92
--- NOTE | 2021-09-06 16:28 | PCM.PN.ORT ---
Subjective Subjective Patient is doing well. She reports she was able to participate in physical therapy. She reports her pain is under control. She has been cleared by medicine for discharge to rehab today. Plan is to discharge her after her exam today. Denies any chest pain or shortness of breath. Objective Data Objective Data Vital Signs: Vital Signs Temp Pulse Resp BP Pulse Ox O2 Del Method O2 Flow Rate 97.7 F L 89 18 104/53 L 92 Room Air 2 09/06/21 12:49 09/06/21 12:49 09/06/21 12:49 09/06/21 12:49 09/06/21 12:49 09/06/21 12:49 09/06/21 02:00 Oxygen Flow Rate (L/min) 2 Oxygen Delivery Method Room Air Weight: 160 lb 7.944 oz Body Mass Index (BMI) 26.3 Intake & Output: Intake and Output for Last 24 Hours 09/04/21 09/05/21 09/06/21 23:59 23:59 23:59 Intake Total 2160 / 2160 2141.67 / 2141.67 Output Total 2600 / 2600 1800 / 1800 Balance -440 / -440 341.67 / 341.67 Lab / Micro Data Attestation: I reviewed the patient's lab results. Result Diagrams: 09/06/21 09:40 09/06/21 09:40 Labs: Laboratory Results - last 24 hr 09/05/21 20:36: Troponin I High Sens < 3 L 09/05/21 21:58: POC Glucose 163 H 09/06/21 06:37: POC Glucose 136 H 09/06/21 09:40: WBC 11.4 H, RBC 3.89 L, Hgb 11.5 L, Hct 35.7 L, MCV 91.8, MCH 29.6, MCHC 32.2, RDW Std Deviation 41.9, RDW Coeff of Aditya 12.5, Plt Count 175, MPV 11.0, Immature Gran % (Auto) 0.600, Neut % (Auto) 84.7 H, Lymph % (Auto) 5.3 L, [place] % (Auto) 7.6, Eos % (Auto) 1.6, Baso % (Auto) 0.2, Absolute Neuts (auto) 9.6 H, Absolute Lymphs (auto) 0.60 L, Nucleated RBC % 0, Differential Comment , Platelet Estimate ADEQUATE, RBC Morphology NORM C+C 09/06/21 09:40: Sodium 137, Potassium 3.6, Chloride 105, Carbon Dioxide 24.0, Anion Gap 8, BUN 11, Creatinine 0.72, Estim Creat Clear Calc 43.74, Est GFR (MDRD) Af Amer 101, Est GFR (MDRD) Non-Af 83, BUN/Creatinine Ratio 15.2, Glucose 153 H, Calcium 8.1 L 09/06/21 11:28: POC Glucose 136 H Micro: Microbiology 09/05/21 09:58 Nasal Secretion SARS-CoV-2 Antigen (Rapid) - Final Radiography Diagnostic Testing: Radiology Impression Hip/Pelvis X-Ray 09/05/21 06:40 IMPRESSION: Internal fixation of a right femoral neck fracture in the OR. Electronically Signed: Az Morris DO at 20:08 EDT Reading Location ID and State: [place] / [employer] Tel [phone], Service support , Hip X-Ray 09/05/21 21:00 IMPRESSION: Status post internal fixation of the right femoral neck fracture. Electronically Signed: Az Morris DO at 21:29 EDT Reading Location ID and State: [place] / [employer] Tel [phone], Service support , Physical Exam Const alert and oriented x3 Extremity Extremity Narrative: Right lower extremity: Dressing is clean dry and intact Sensations intact to light touch saphenous, sural, superficial peroneal, deep peroneal, and tibial distributions Motors intact EHL, DF, PF calves are soft and supple Assessment & Plan Assessment/Plan (1) Closed right hip fracture: PLAN: Postop day 1 closed reduction percutaneous pinning right hip femoral neck fracture 1. DVT prophylaxis: Aspirin 81 mg twice daily for 4 weeks 2. Pain control per primary service 3. Physical therapy: Weightbearing as tolerated, activity as tolerated 4. Medical management: Patient is on medicine service doing well and cleared for discharge to rehabilitation. 5. Disposition: Discharge to rehab today. Dressing can be removed on postop day 5. Okay to shower with current dressing and is in a occlusive dressing. If incision is clean and dry upon removal of dressing in 5 days okay to leave open to air. Remove any visible sutures on postop day 12. Follow-up in office in 2 weeks for x-rays and wound check.
[2021-09-06 16:41] LABS: Bedside Glucose 124 mg/dL (74-106)
== END 2021-09-06 16:35 | DRG 482 ==
LOC: ED 21:24 → PCU 21:53
PROVIDERS: Anesthesiology; Nurse Practitioner Family; Specialist; Admitting Provider Family Medicine; Emergency Provider Student in an Organized Health Care Education/Training Program; PCP Family Medicine; Visit Provider Internal Medicine
PROC: 0QS634Z Reposition Right Upper Femur with Internal Fixation Device, Percutaneous Approach (ICD-10-PCS; principal; 2021-09-05 15:45)
DX: S72.011A Unspecified intracapsular fracture of right femur, initial encounter for closed fracture (principal); D50.9 Iron deficiency anemia, unspecified; E11.9 Type 2 diabetes mellitus without complications; E03.9 Hypothyroidism, unspecified; E78.00 Pure hypercholesterolemia, unspecified; S50.311A Abrasion of right elbow, initial encounter; W19.XXXA Unspecified fall, initial encounter; E78.5 Hyperlipidemia, unspecified; S60.511A Abrasion of right hand, initial encounter; I10 Essential (primary) hypertension; S60.512A Abrasion of left hand, initial encounter; I25.10 Atherosclerotic heart disease of native coronary artery without angina pectoris; H81.10 Benign paroxysmal vertigo, unspecified ear; Z79.82 Long term (current) use of aspirin; R53.81 Other malaise; M81.0 Age-related osteoporosis without current pathological fracture; Z95.5 Presence of coronary angioplasty implant and graft
CPT/HCPCS: 36415; 51702; 70450; 73501; 73502; 76000; 80048; 80053; 81001; 82306; 82962; 83880; 84443; 84484; 85025; 86850; 86900; 86901; 87426; 93005; 97162; 97166; 99251; 99252; 99285; C1713; J7030; A4216; G0463; J2405

== ENCOUNTER 2021-09-06 16:52 | Inpatient (IN) | payer MEDICARE, OTHER, SELFPAY ==
[2021-09-06 17:08] VITALS: BP 178/76; PULSE 95; RESP 16; TEMP 36.7; O2SAT 90; BMI 26.6
[2021-09-06 18:00] LABS: Bedside Glucose 121 mg/dL (74-106)
[2021-09-06 19:25] VITALS: O2SAT 92
[2021-09-06 19:35] VITALS: BP 142/79; PULSE 105; RESP 18; TEMP 36.8; O2SAT 94
[2021-09-06] MEDS: Atorvastatin Calcium 40 MG Tablet PO (19:59)
[2021-09-06] MEDS: Aspirin 81 MG TAB.CHEW PO (19:59)
[2021-09-06] MEDS: Senna/Docusate Sodium 1 Tablet 2 TABLET PO (19:59)
[2021-09-06] MEDS: metFORMIN HCl 500 MG Tablet PO (19:59)
[2021-09-06] MEDS: 0.9% Saline Lock 10 ML Syringe IV (19:59)
[2021-09-06 21:01] LABS: Bedside Glucose 157 mg/dL (74-106)
[2021-09-06] MEDS: traMADol 50 MG Tablet PO (22:07)
[2021-09-07] MEDS: Levothyroxine 100 MCG Tablet PO (05:13)
[2021-09-07] MEDS: traMADol 50 MG Tablet PO ×2 (05:26→13:44)
[2021-09-07 07:00] LABS: Bedside Glucose 143 mg/dL (74-106)
[2021-09-07] MEDS: Fluticasone 0.05% 1 SPRAY NASAL.SRY 2 SPRAY NASAL (08:47)
[2021-09-07] MEDS: metFORMIN HCl 500 MG Tablet PO ×2 (08:48→16:35)
[2021-09-07] MEDS: Aspirin 81 MG TAB.CHEW PO ×2 (08:48→16:35)
[2021-09-07] MEDS: Senna/Docusate Sodium 1 Tablet 2 TABLET PO ×2 (08:49→22:02)
[2021-09-07] MEDS: Famotidine 20 MG Tablet PO (08:49)
[2021-09-07 08:50] VITALS: BP 132/70; PULSE 109
[2021-09-07] MEDS: Metoprolol(XL)Succ 25 MG Tablet PO (08:50)
[2021-09-07] MEDS: Lisinopril 5 MG Tablet PO (08:51)
[2021-09-07 09:49] VITALS: BP 132/70; PULSE 109; RESP 18; TEMP 37.1; O2SAT 93
[2021-09-07 11:15] LABS: Bedside Glucose 132 mg/dL (74-106)
[2021-09-07] MEDS: 0.9% Saline Lock 10 ML Syringe IV ×2 (16:39→22:02)
[2021-09-07 17:40] LABS: Bedside Glucose 123 mg/dL (74-106)
[2021-09-07 19:24] VITALS: BP 127/66; PULSE 85; RESP 18; TEMP 36.2; O2SAT 100
[2021-09-07] MEDS: Atorvastatin Calcium 40 MG Tablet PO (22:02)
[2021-09-07 23:11] LABS: Bedside Glucose 111 mg/dL (74-106)
--- NOTE | 2021-09-08 02:06 | NURSING ---
Upon HS assessment, urine found on floor around chair where pt was sitting and under bed. Clamp on Soto catheter found to not be secured shut. Secured clamp and cleaned floor.
[2021-09-08] MEDS: Levothyroxine 100 MCG Tablet PO (05:10)
[2021-09-08 06:50] LABS: Bedside Glucose 109 mg/dL (74-106)
[2021-09-08 07:30] VITALS: BP 125/68; PULSE 100; RESP 18; TEMP 36.5; O2SAT 93
[2021-09-08] MEDS: Lisinopril 5 MG Tablet PO (07:54)
[2021-09-08 07:55] VITALS: PULSE 70
[2021-09-08] MEDS: metFORMIN HCl 500 MG Tablet PO ×2 (07:55→16:09)
[2021-09-08] MEDS: Famotidine 20 MG Tablet PO (07:55)
[2021-09-08] MEDS: Aspirin 81 MG TAB.CHEW PO ×2 (07:55→16:09)
[2021-09-08] MEDS: Fluticasone 0.05% 1 SPRAY NASAL.SRY 2 SPRAY NASAL (07:55)
[2021-09-08] MEDS: Metoprolol(XL)Succ 25 MG Tablet PO (07:55)
[2021-09-08] MEDS: traMADol 50 MG Tablet PO ×2 (07:55→16:09)
[2021-09-08 12:20] LABS: Bedside Glucose 124 mg/dL (74-106)
[2021-09-08] MEDS: 0.9% Saline Lock 10 ML Syringe IV ×2 (16:11→22:34)
[2021-09-08 16:21] LABS: Bedside Glucose 105 mg/dL (74-106)
[2021-09-08 19:45] VITALS: BP 137/73; PULSE 87; RESP 16; TEMP 36.6; O2SAT 94
[2021-09-08] MEDS: Atorvastatin Calcium 40 MG Tablet PO (22:28)
[2021-09-08 22:50] LABS: Bedside Glucose 157 mg/dL (74-106)
--- NOTE | 2021-09-09 03:54 | NURSING ---
Reviewed and agree with PRODUCTION MATERIAL COORDINATOR documentation and assessment charting.
[2021-09-09] MEDS: Levothyroxine 100 MCG Tablet PO (05:05)
[2021-09-09 07:26] LABS: Bedside Glucose 143 mg/dL (74-106)
[2021-09-09 07:27] VITALS: BP 152/72; PULSE 93; RESP 16; TEMP 36.4; O2SAT 93
[2021-09-09 07:35] VITALS: O2SAT 93
[2021-09-09 09:00] VITALS: PULSE 93
[2021-09-09] MEDS: Famotidine 20 MG Tablet PO (09:00)
[2021-09-09] MEDS: Metoprolol(XL)Succ 25 MG Tablet PO (09:00)
[2021-09-09] MEDS: Lisinopril 5 MG Tablet PO (09:00)
[2021-09-09] MEDS: Senna/Docusate Sodium 1 Tablet 2 TABLET PO (09:00)
[2021-09-09] MEDS: Aspirin 81 MG TAB.CHEW PO ×2 (09:00→17:10)
[2021-09-09] MEDS: traMADol 50 MG Tablet PO (09:00)
[2021-09-09] MEDS: metFORMIN HCl 500 MG Tablet PO ×2 (09:00→17:10)
[2021-09-09] MEDS: Fluticasone 0.05% 1 SPRAY NASAL.SRY 2 SPRAY NASAL (09:01)
[2021-09-09 11:11] LABS: Bedside Glucose 149 mg/dL (74-106)
--- NOTE | 2021-09-09 11:56 | PCM.HP.STD ---
HPI - General General Date of Admission: 09/06/21 Date of Service: 09/09/21 Chief Complaint: Physical debility secondary to a fall resulting in a right hip fracture. HPI Narrative JEREL HUDSON, is a 75 YO F with PMH listed below who presented who presented to the emergency department at [facility] on 09/04/2021 after a fall in her driveway. She was unable to get up from the driveway and complained of pain in the right hip and upper right anterior thigh. X-ray in the emergency department showed an impacted right femoral neck fracture and mild demineralization. A noncontrast CT brain showed no evidence of acute intracranial hemorrhage or injury. She was admitted to the hospitalist service and consult with cardiology and orthopedics was ordered. Cardiology felt she needed no further work-up and she was low risk for perioperative cardiac complications. After meeting with Dr. Moreno Ms. Hudson elected to have a percutaneous pinning of the R hip. There were no post-operative complications and she was transferred to acute inpt rehab at [facility] on 09/06/21 for 3 hours of therapy daily to restore function/independence at or near her prior level of function. Factors contributing to the fall were persistent knee pain prior to the fall and also vertigo. The hospital chart/EMR were reviewed. Afebrile VSS - resting HR's have been high. The majority of BP's are within goal. Maintaining appropriate oxygen saturation on RA Oral intake is good Discussed with nursing - no problems that need addressed Reviewed the PT/OT/ST notes Medication list reviewed. She is on ASA 81 mg BID for 4 weeks per orthopedics. She is taking Tramadol for pain. [facility] Medical History (Updated 09/09/21 @ 13:[address] Anne Bowles, ) Allergic rhinitis CAD (coronary artery disease) Diabetes High cholesterol HTN (hypertension) Hypothyroid Home Medications aspirin 81 mg tablet,delayed release (Adult Low Dose Aspirin) 81 mg PO DAILY heart health 05/22/15 [History Last Taken Unknown] atorvastatin 40 mg tablet 40 mg PO QHS HLD 05/22/15 [History Last Taken Unknown] lisinopril 5 mg tablet 5 mg PO DAILY blood pressure 05/22/15 [History Last Taken Unknown] fluticasone propionate 50 mcg/actuation nasal spray,suspension 2 ea intranasal DAILY allergies 09/04/21 [History Last Taken Unknown] levothyroxine 100 mcg tablet 100 mcg PO DAILY thyroid 09/04/21 [History Last Taken Unknown] metformin 500 mg tablet 500 mg PO BID DM 09/04/21 [History Last Taken Unknown] metoprolol succinate 25 mg tablet,extended release 24 hr 25 mg PO DAILY blood pressure 09/04/21 [History Last Taken Unknown] aspirin 81 mg chewable tablet 81 mg PO BID blood thinner 09/06/21 [History Last Taken Unknown] famotidine 20 mg tablet 20 mg PO DAILY gerd 09/06/21 [History Last Taken Unknown] tramadol 50 mg tablet 50 - 100 mg PO Q6H PRN PRN Pain Score 4-10 #0 tabs 09/06/21 [Rx Last Taken Unknown] Allergy/AdvReac Type Severity Reaction Status Date / Time acetaminophen [From Tylenol] AdvReac Upset Verified 09/04/21 16:22 Stomach oxycodone AdvReac I FEEL Verified 03/23/15 11:57 WACKED OUT Penicillins [PCN] AdvReac I STAY Verified 03/23/15 11:57 AWAY, MY DAD WAS ALLERGIC Family History Mother Colon cancer CAD (coronary artery disease) Heart disease Hypertension Father Heart disease Hypertension Diabetes CHF (congestive heart failure) Surgical History (Updated 09/09/21 @ 13:[address] Anne Bowles DO) History of bilateral tubal ligation Hx of heart artery stent S/P bilateral foot surgery Social History household members: other details: Her older sister lives with her. Smoking Status: Never smoker alcohol intake: never substance use type: does not use ROS Review of Systems ROS Unobtainable: Denies due to encephalopathy, due to endotracheal tube, due to mental condition or due to mental status Constitutional Constitutional: Denies anorexia, change in weight, chills, fatigue, fever(s), night sweats or weakness Eyes Eyes: Denies blurry vision, change in vision, eye pain or loss of vision ENT HEENT: Reports dizziness and other Details: vertigo.......X 3 weeks ; Denies abnormal hearing, dysphagia, ear discharge, ear pain, headache(s), hearing loss, nasal congestion or sore throat Cardiovascular Cardiovascular: Reports lightheadedness; Denies chest pain, dyspnea on exertion, edema, orthopnea, palpitations, paroxysmal nocturnal dyspnea or syncope Respiratory/Chest Respiratory/Chest: Denies cough, dyspnea, shortness of breath at rest, shortness of breath with exertion or wheezing Gastrointestinal Gastrointestinal: Reports constipation; Denies abdominal pain, diarrhea, dyspepsia, hematemesis, hematochezia, nausea or vomiting Genitourinary Genitourinary: Denies dysuria, hematuria, nocturia, urinary frequency, urinary hesitancy, urinary incontinence or urinary urgency Musculoskeletal Musculoskeletal: Reports difficulty walking, joint pain and other Details: Has had difficulty walking prior to the fall/hip fracture due to knee pain. ; Denies back pain, joint swelling or neck pain Integumentary Integumentary: Reports wounds and other Details: At the site of the Pinning of the R hip Neurologic Neurologic: Reports dizziness; Denies confusion, disequilibrium, focal weakness, headache(s), paresthesias, seizures or tremor(s) Psychiatric Psychiatric: Denies anxiety, depression, homicidal ideation or suicidal ideation Endocrine Endocrinology: Denies change in body appearance, polydipsia or polyuria Hematologic/Lymphatic Hematologic/Lymphatic: Denies easy bleeding, easy bruising or lymphadenopathy Allergic/Immunologic Allergic/Immunologic: Denies rhinitis, eczemia or asthma Vital Signs Vital Signs Vital Signs: 09/08/21 12:26 09/08/21 19:45 09/08/21 22:30 Temperature 97.8 F Temperature Source Temporal Pulse Rate 87 Pulse Strength Weak (1+) Respiratory Rate 16 Blood Pressure 137/73 H Blood Pressure Mean 94 Blood Pressure Source Monitor Blood Pressure Position Sitting Blood Pressure Location Left Arm Pulse Ox 94 Oxygen Delivery Method Room Air Room Air 09/09/21 07:27 09/09/21 07:35 09/09/21 09:00 Temperature 97.5 F L Temperature Source Oral Pulse Rate 93 93 Pulse Strength Respiratory Rate 16 Blood Pressure 152/72 H Blood Pressure Mean 98 Blood Pressure Source Monitor Blood Pressure Position Semi-Fowlers Blood Pressure Location Right Arm Pulse Ox 93 93 Oxygen Delivery Method Room Air Room Air Weight Weight: 160 lb 7.944 oz Body Mass Index (BMI) 26.6 Physical Exam Const alert, oriented x3, no apparent distress and healthy appearing Constitutional Narrative: Doing very wall in therapy. Stood in the arminda and talked to me for about 5 minutes with no LOB. General Appearance: cooperative and well kempt HEENT HEENT Narrative: Mucous membranes are dry Head and Scalp: normocephalic and atraumatic Eyes PERRL, EOMs intact bilaterally, conjunctivae normal and no scleral icterus Eyes Narrative: No discharge from the eyes, no mattering of the eyelids. No nystagmus Neck supple, no JVD, No nodes and no carotid bruits Chest Chest: symmetrical chest wall rise Resp normal respiratory effort, normal air movement, no use of accessory muscles and clear to auscultation bilaterally Effort and Inspection: able to speak in complete sentences Cardio regular rhythm, S1 normal heart sound and S2 normal heart sound; Negative for no rub or no gallops Cardio Narrative: Resting HR is in the 90's. TSH recently normal. GI normal to inspection, nondistended, normoactive bowel sounds, soft to palpation, non-tender and no masses Narrative: She had a Soto catheter in place when she arrived on rehab and it has been removed. Denies urgency, dysuria and frequency. Back/Spine no CVA tenderness Extremity no clubbing, cyanosis or edema and no calf tenderness Extremity Narrative: There is a dressing over the surgical site. Will examine when the dressing is ready to come off. There is no erythema surrounding the dressing and no discharge on the dressing. There is some swelling in the area. Skin General Skin Exam: no breakdown Rashes: no rashes Neuro oriented x3, CN's II-XII intact bilaterally, moves all extremities and no focal motor deficits Psych mental status grossly normal, thought process normal, cooperative, affect normal, speech normal, activity/motor behavior normal, denies hallucinations, denies homicidal ideation and denies suicidal ideation Appearance: appropriate Attitude: calm Activity / Motor Behavior: appropriate eye contact Speech: normal speech Results Lab / Micro Data Labs: Laboratory Results - last 24 hr 09/08/21 12:14: POC Glucose 124 H 09/08/21 16:09: POC Glucose 105 09/08/21 22:24: POC Glucose 157 H 09/09/21 06:54: POC Glucose 143 H 09/09/21 11:07: POC Glucose 149 H Assessment & Plan Assessment/Plan (1) Debility: (2) Fall: (3) Closed right hip fracture: (4) History of reduction of closed fracture: (5) Vertigo: (6) Hypothyroid: (7) HTN (hypertension): (8) Diabetes: PLAN: Type 2 on Metformin only (9) CAD (coronary artery disease): PLAN: Plan PLAN PT for gait stability OT for ADL's Analgesics as needed - Tolerating Tramadol with no adverse reactions Bowel protocol Fall precautions Assess for Anxiety/Depression GI prophylaxis with Pepcid DVT prophylaxis with ASA 81 mg p.o. twice daily x4 weeks Follow up with Dr. Moreno and Dr. Jah Luther following DC from IP Rehab Meclizine 12.5 mg BID BMP, Mag, phos, HH, HGBA1C in the AM Check orthostatic VS's now and repeat in the AM Unit Exclusion This patient is an acute care inpatient being housed in the excluded unit because of capacity issues related to the disaster or emergency.: Yes Charges/Coding Visit Charges Inpatient E&M: 36691 Init Hosp L2
[2021-09-09 13:17] VITALS: BP 130/72; BP 135/68; BP 140/79; PULSE 90; PULSE 99
--- NOTE | 2021-09-09 13:32 | PCM.RU.PYE ---
Admission Information Primary Diagnosis:: Post stroke debility due to fall resulting in a R hip fracture followed by a percutaneous pinning. Status Changes from Prescreening?: No changes Identified Actual Problem List:: Mobility Impaired, Self Care Deficit, Ineffective Communication and Alteration-Leisure Activ. Potential Problem List:: DVT, Bleeding, Infection, UTI, Aspiration, Falls, Skin Integrity and Depression Risk of Complications DVT: LMWH and SKINNY Hose Bleeding: Monitor Lab Values, Nursing to Teach Precautions for anti-coagulation therapy., Wound, if applicable, to be assessed every shift. and Stroke patients assessed for lethargy or change in status. Infection: Clinical Staff to Monitor for S/S of infection: and S/S of infection include fever, redness, warmth, etc. Urinary Tract Infection: Monitor for frequency, burning, discomfort, or incontinence. and Nursing will obtain urine sample for urinalysis and C&S when ordered. Aspiration: Clinical staff will monitor for coughing, drooling, congestion., Speech will evaluate swallowing and dsyphasia. and Nursing will monitor patient swallowing during meals. Falls: Patient will be evaluated for Fall Precautions and Patient will be placed on Fall Precautions as indicated per protocol. Skin Breakdown: Nursing will assess skin daily using assessment tool. and Nursing will place on Skin Breakdown Precautions as indicated. Pain: Clinical staff will assess patient's pain level per protocol., Medications will be given, if needed, and the pain level reassessed. and Other methods: Massage, distraction, decrease stimulus, etc. used PRN. Plan of Care Patient requires physician specializing in physical medicine and rehab oversight to provide close medical supervision of rehab issues including: Pain Management, Sleep Problems, Bowel and Bladder, Medical and co-morbidity Management, DVT prophylaxis, Rehabilitation Leadership and Coordination of treatment team Patient needs Physical Therapy: For a minimum of 1 hour and At least 5 out of 7 days Patient needs Physical Therapy to improve:: Mobility, Strengthening, Transfers, Stretching, ROM, Endurance, Stairs, Gait and Balance Patient needs Occupational Therapy: For a minimum of 1 hour and At least 5 out of 7 days Patient needs Occupational Therapy to improve ADL's incl.: Eating, Grooming, Bathing, Dressing, Toileting, Toilet transfers, Community Reintegration, Higher functioning activities, Household tasks, Adaptive Equipment, Splinting and Other activities as determined Patient requires 24/ Rehabilitation Nursing for: Pain Issues, Identifying and preventing risk factors, Monitoring and reporting current medical conditions, Assisting with ambulation, transfer, and all ADL's, Teaching patients about disease process and medications, Family teaching, Providing safe environment, Bowel and Bladder Issues, Skin integrity and Medication Management Patient needs Miter Operator/ Case Management for: Discharge Planning, Arranging Home Equipment or Services and Family Interventions Patient needs Dietary and Nutrition Services for: Adequate Nutrition, Nutritional Supplements and Nutritional Education Goals Patient will remain: free from falls and or injury at time of discharge. Patient will perform bed mobility at: MOD I level of assist. Patient will complete transfers from bed to chair at: MOD I level of assist. Patient will ambulate: with LRD and - (150 feet at mod I with the least restrictive device.) Patient will complete upper body dressing at: MOD I level of assist. Patient will complete lower body dressing at: MOD I level of assist. (With appropriate assistive equipment) Patient will complete toileting at: MOD I level of assist. Patient will perform bathing at: MOD I level of assist. Patient will complete grooming at: MOD I level of assist. Patient will complete home management skills at: MOD I level of assist. Patient will achieve: - (1 curb step and 1 regular step so that she can get into her home. ) Patient will have pain level of: of 3 or less Patient's skin will: remain intact Patient will receive: adequate nutrition. Discharge Planning Pt Prognosis for Sig. Practical Improv. w/in Reasonable Time: Good Estimated Length of stay (days): 10 Anticipated D/C Destination: Home with Home Health (Or with OP therapy.......will reassess when closer to discharge. ) Was Preadmission Assessment Accurate?: Yes
[2021-09-09 16:40] LABS: Bedside Glucose 125 mg/dL (74-106)
[2021-09-09 19:31] VITALS: BP 122/59; PULSE 80; RESP 18; TEMP 36.6; O2SAT 95
[2021-09-09] MEDS: Atorvastatin Calcium 40 MG Tablet PO (19:56)
[2021-09-09] MEDS: Meclizine 12.5 MG Tablet PO (19:56)
[2021-09-09 21:46] LABS: Bedside Glucose 106 mg/dL (74-106)
[2021-09-10 05:11] VITALS: BP 138/72; BP 146/80; BP 158/80; PULSE 107; PULSE 91; PULSE 98
[2021-09-10] MEDS: Levothyroxine 100 MCG Tablet PO (05:24)
[2021-09-10 06:01] LABS: Hematocrit 32.6 % (37-47); Hemoglobin 10.7 g/dL (12.0-15.0); Mean Corp Hgb Conc 32.8 g/dL (32-36); Mean Corpuscular Hgb 29.4 pg (27.0-32.0); Mean Corpuscular Volume 89.6 fL (81-99); Mean Platelet Vol. 10.6 fl (6.2-12.0); Platelet Count 237 K/mm3 (150-450); RBC Distribution Width CV 12.1 % (11.6-14.6); RBC Distribution Width SD 39.9 fl (35.1-43.9); Red Blood Count 3.64 M/mm3 (4.2-5.4)
[2021-09-10 06:41] LABS: Anion Gap 6 (5-15); BUN 10 mg/dL (7-18); BUN/Creat Ratio 13.7 RATIO (10-20); Calcium,Total 8.9 mg/dL (8.5-10.1); Chloride 103 mmol/L (98-107); Creatinine, Serum 0.73 mg/dL (0.55-1.02); EST Glomerular Filtration Rate 82 mL/min (>60); Est Glom Filt Rate - Afr Amer 99 mL/min (>60); Estimated Creatinine Clearance 43.74 ml/min; Glucose 148 mg/dL (74-106); Magnesium 2.1 mg/dL (1.6-2.6); Phosphorus 3.9 mg/dL (2.5-4.9); Potassium 3.5 mmol/L (3.5-5.1); Sodium Level 138 mmol/L (136-145)
[2021-09-10 06:50] LABS: Bedside Glucose 141 mg/dL (74-106)
[2021-09-10 07:47] VITALS: BP 146/80; PULSE 91; RESP 12; TEMP 36.6; O2SAT 95
[2021-09-10] MEDS: Fluticasone 0.05% 1 SPRAY NASAL.SRY 2 SPRAY NASAL (07:54)
[2021-09-10] MEDS: Meclizine 12.5 MG Tablet PO ×2 (07:55→19:39)
[2021-09-10] MEDS: Famotidine 20 MG Tablet PO (07:55)
[2021-09-10] MEDS: metFORMIN HCl 500 MG Tablet PO ×2 (07:55→16:27)
[2021-09-10] MEDS: Lisinopril 5 MG Tablet PO (07:55)
[2021-09-10 07:56] VITALS: BP 146/80; PULSE 91
[2021-09-10] MEDS: Metoprolol(XL)Succ 25 MG Tablet PO (07:56)
[2021-09-10] MEDS: Aspirin 81 MG TAB.CHEW PO ×2 (07:56→16:27)
[2021-09-10 08:23] LABS: Hemoglobin A1c 6.6 % (3.8-5.6)
[2021-09-10] MEDS: traMADol 50 MG Tablet PO (08:43)
--- NOTE | 2021-09-10 10:44 | NURSING ---
pt's BP elevated. Dr quinones made aware. changes made to meds. Q4H while awake blood pressure checks
[2021-09-10 11:11] LABS: Bedside Glucose 109 mg/dL (74-106)
--- NOTE | 2021-09-10 15:17 | PCM.PROGNOTE ---
Subjective Subjective Afebrile VSS -systolic blood pressures are mildly elevated but the diastolic is consistently within goal. the HR is often in the 90's. Maintaining appropriate oxygen saturation on RA Oral intake is adequate Discussed with nursing - no problems that need addressed Reviewed the PT/OT/ST notes Medication list reviewed. So far today she is taken only 1 tramadol 50 mg. States he pain is adequately controlled. All lab from this morning was personally reviewed. The hemoglobin is 10.7, down from 11.5 on 09/06/2021 but I suspect this is secondary to better hydration. White blood cell count and platelets are within normal limits now. Sodium is normal at 138 and the potassium is 3.5. The BUN is down to 10 and the creatinine is stable at 0.73. Hemoglobin A1c is excellent at 6.6. Calcium is within normal limits. Phosphorus and magnesium are also normal. She denies chest pain, shortness of breath, palpitations, calf pain, nausea/vomiting/abdominal pain, dysuria. She is sleeping well and her pain is adequately controlled.She is c/o R knee pain and she still is having some vertigo although it is gradually improving. She also has tinnitus and hearing loss so I suspect she has Meniere's. the knee pain started on the . she felt something pop in the knee when bowling and then the pain started. She had some bruising in the lateral R calf after that. She had not started PT at [facility] yet. She fell out of the car when she was a kid and had to wear a brace for a while and then grew out of it. Objective Data Objective Data Vital Signs: Vital Signs Temp Pulse Resp BP Pulse Ox O2 Del Method 97.8 F 91 12 146/80 H 95 Room Air 09/10/21 07:47 09/10/21 07:56 09/10/21 07:47 09/10/21 07:56 09/10/21 07:47 09/10/21 07:47 Oxygen Delivery Method Room Air Weight: 160 lb 7.944 oz Body Mass Index (BMI) 26.6 Intake & Output: Intake and Output for Last 24 Hours 09/08/21 09/09/21 09/10/21 23:59 23:59 23:59 Intake Total 1140 / 1260 1230 / 1230 240 / 240 Output Total 1400 / 1400 800 / 800 Balance -260 / -140 430 / 430 240 / 240 Lab / Micro Data Result Diagrams: 09/10/21 05:47 09/10/21 05:47 Labs: Laboratory Results - last 24 hr 09/09/21 16:30: POC Glucose 125 H 09/09/21 21:21: POC Glucose 106 09/10/21 05:47: WBC 8.0, RBC 3.64 L, Hgb 10.7 L, Hct 32.6 L, MCV 89.6, MCH 29.4, MCHC 32.8, RDW Std Deviation 39.9, RDW Coeff of Aditya 12.1, Plt Count 237, MPV 10.6 09/10/21 05:47: Sodium 138, Potassium 3.5, Chloride 103, Carbon Dioxide 29.0, Anion Gap 6, BUN 10, Creatinine 0.73, Estim Creat Clear Calc 43.74, Est GFR (MDRD) Af Amer 99, Est GFR (MDRD) Non-Af 82, BUN/Creatinine Ratio 13.7, Glucose 148 H, Calcium 8.9, Phosphorus 3.9, Magnesium 2.1 09/10/21 05:47: Hemoglobin A1c 6.6 H 09/10/21 06:25: POC Glucose 141 H 09/10/21 11:07: POC Glucose 109 H Physical Exam Const alert, oriented x3 and no apparent distress Constitutional Narrative: She is sitting in the recliner resting and appears to be in no distress. General Appearance: cooperative Resp normal respiratory effort, normal air movement and clear to auscultation bilaterally Cardio regular rate, regular rhythm and no gallops GI normal to inspection, nondistended, normoactive bowel sounds, soft to palpation and non-tender Extremity Extremity Narrative: She has significant zara enlargement of the R night. There is some mild fluid in the prepatellar bursa. there is no erythema and no increased warmth to touch. No openings in the skin. No pain with flexion and the medial and lateral collateral ligaments seem stable and there is no pain with palpation of the medial or lateral knee. There is no significant ankle edema. Skin General Skin Exam: no breakdown Rashes: no rashes Assessment & Plan Assessment/Plan (1) Debility: PLAN: Continue therapy......ST feels they should see her as well while she is here and work on memory strategies......she has noticed that she is having some issues with memory and did not know who to talk with. (2) Fall: PLAN: Suspect due to vertigo with gait instability and also R knee pain. (3) Closed right hip fracture: (4) History of reduction of closed fracture: (5) Vertigo: PLAN: I suspect this is due to M?ni?re's disease. We will continue meclizine 12.5 mg twice daily for another 24 hours and if still having vertigo increased to 25 mg twice daily. Add 12.5 mg hydrochlorothiazide to the current drug regimen. (6) Diabetes: PLAN: Well-controlled on metformin 500 mg twice daily with a hemoglobin A1c of 6.6 (7) Recurrent knee pain: PLAN: Suspect she has severe OA of the R knee and it was exacerbated by the bowling. Will check a knee XRAY and also try arthritis cream (Baclofen, Voltaren and Lidocaine) for the pain. PLAN: Plan Continue therapy. Charges/Coding Visit Charges Inpatient E&M: 23625 Subs Hosp L2
--- NOTE | 2021-09-10 15:59 | RAD_ITS ---
STUDY: XR Knee Complete 4 Views or More 09/10/2021 4:09 PM REASON FOR EXAM: Female, 75 years old. pain and zara enlargment TECHNIQUE: XR Knee Complete 4 Views or More RIGHT COMPARISON: None FINDINGS: Normal visualized distal femur. Normal visualized proximal tibia and fibula. Normal proximal tibiofibular articulation. There are atherosclerotic vascular calcifications. There is severe degenerative arthrosis of the medial femorotibial compartment with severe joint space narrowing. There is mild degenerative arthrosis of the lateral femorotibial compartment. There is moderate degenerative arthrosis of the patellofemoral articulation. The soft tissue structures are unremarkable. RAD/Knee 4 or More Views IMPRESSION: Degenerative arthrosis. Electronically Signed: Inocencio No MD at 16:10 EDT ,
--- NOTE | 2021-09-10 16:19 | CHAPLAIN ---
Type of Pastoral Visit _x__ Initial Visit ___ Follow-up Visit ___ On-call Visit ___ General Patient Visit ___ Spiritual Assessment ___ Family Conference ___ Bereavement ___ Rapid Response ___ Code Blue ___ Other (describe below) Pastoral Care Referral From _x__ Patient ___ Family ___ Nurse ___ Physician ___ Buttermaker Helper ___ Security Nurse ___ Other (describe below) Sacrament/Intervention __x_ Active listening ___ Anointing ___ Worship ___ Bereavement ___ Communion ___ Sharon exploration ___ _x_ Life review _x__ Prayer ___ Reconciliation ___ Sacrament of Sick _x__ Supportive presence ___ Wedding ___ Other (describe below) Pastoral Comments patient gives review of her health and how she is handling her hospital stay; pt is thankful that she is close to home while in rehab unit; pt has family in area and a zoroastrianism connection; pt issue is forgiving myself as I go over how stupid this was; discussion on forgiveness and patience for self; prayer and presence is welcomed;
[2021-09-10] MEDS: hydroCHLOROthiazide 12.5mg 12.5 MG PO (16:27)
[2021-09-10 16:31] LABS: Bedside Glucose 125 mg/dL (74-106)
[2021-09-10 19:28] VITALS: BP 157/80; PULSE 86; RESP 16; TEMP 36.8; O2SAT 99
[2021-09-10 21:30] VITALS: PULSE 86; RESP 16; O2SAT 99
[2021-09-10] MEDS: Atorvastatin Calcium 40 MG Tablet PO (21:52)
[2021-09-10] MEDS: Arthritis Pain Compound 60 CLICK TUBE TOPICAL (21:52)
[2021-09-10 22:35] LABS: Bedside Glucose 128 mg/dL (74-106)
--- NOTE | 2021-09-11 03:53 | NURSING ---
Reviewed and agree with GEAR SHAPER SET UP OPERATOR documentation and assessment charting.
[2021-09-11] MEDS: Levothyroxine 100 MCG Tablet PO (06:38)
[2021-09-11 07:05] LABS: Bedside Glucose 164 mg/dL (74-106)
[2021-09-11] MEDS: Aspirin 81 MG TAB.CHEW PO ×2 (08:05→16:39)
[2021-09-11] MEDS: Arthritis Pain Compound 60 CLICK TUBE TOPICAL ×2 (08:06→22:14)
[2021-09-11] MEDS: Meclizine 12.5 MG Tablet PO (08:06)
[2021-09-11] MEDS: metFORMIN HCl 500 MG Tablet PO ×2 (08:06→16:39)
[2021-09-11 08:07] VITALS: PULSE 88
[2021-09-11] MEDS: Famotidine 20 MG Tablet PO (08:07)
[2021-09-11] MEDS: hydroCHLOROthiazide 12.5mg 12.5 MG PO (08:07)
[2021-09-11] MEDS: Metoprolol(XL)Succ 25 MG Tablet PO (08:07)
[2021-09-11] MEDS: Fluticasone 0.05% 1 SPRAY NASAL.SRY 2 SPRAY NASAL (08:07)
[2021-09-11] MEDS: Lisinopril 5 MG Tablet PO (08:08)
[2021-09-11 09:25] VITALS: BP 121/68; PULSE 88; RESP 17; TEMP 36.7; O2SAT 93
[2021-09-11 12:16] LABS: Bedside Glucose 120 mg/dL (74-106)
[2021-09-11] MEDS: traMADol 50 MG Tablet PO (13:20)
--- NOTE | 2021-09-11 13:23 | PN_ITS ---
Progress Note Afebrile VSS Maintaining appropriate oxygen saturation on RA Oral intake is adequate Blood sugar record was reviewed in she is in good blood sugar control with no hypoglycemia. Discussed with nursing - no problems that need addressed Reviewed the PT/OT notes Medication list reviewed. She was started on hydrochlorothiazide 12.5 mg daily yesterday for suspected M?ni?re's disease with tinnitus, hearing loss and vertigo. She is also receiving meclizine 12.5 mg p.o. twice daily. I reviewed the knee x-ray done yesterday and there is severe degenerative arthrosis of the medial compartment with severe joint space narrowing. There was also moderate degenerative arthrosis of the patellofemoral articulation. She tells me that she is still having Vertigo but it is not constant. She also is still c/o pain in the R knee. We discussed the findings of the Xray of the R knee and discussed possible treatments and the pros and cons of the different options. She denies CP, SOB, abd pain, N/V, calf pain. Physical Exam Const Constitutional Narrative: Alert cooperative. Was resting in the recliner when I entered the room. Eyes Eyes Narrative: PERRL, EOMI, no nystagmus Neck Neck Narrative: full ROM Resp Resp Narrative: Clear to auscultation with excellent air exchange. Cardio Cardio Narrative: Regular rate and rhythm, no murmurs, no gallops, no ectopy GI GI Narrative: Soft, nontender, nondistended, normal bowel sounds Extremity Extremity Narrative: no calf tenderness and no ankle edema. Skin Skin Narrative: No breakdown on and no rashes Assessment & Plan Assessment/Plan (1) Debility: PLAN: Continue PT/OT (2) Fall: QUALIFIERS: Encounter type: subsequent encounter Qualified Code(s): W19.XXXD - Unspecified fall, subsequent encounter PLAN: due to R knee pain and vertigo (3) Closed right hip fracture: QUALIFIERS: Encounter type: subsequent encounter Fracture healing: with routine healing Qualified Code(s): S72.001D - Fracture of unspecified part of neck of right femur, subsequent encounter for closed fracture with routine healing (4) History of reduction of closed fracture: PLAN: By Dr. Moreno. 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 Increase the arthritis cream to TID and provide some compression with therapy to support the knee. I do not really want to inject the knee due to recent fracture and repair and increased risk for infection. Can not start a low dose NSAID since she is on ASA BID for DVT prophylaxis. She would like to follow up with Dr. Moreno for the R knee pain. (7) Vertigo: PLAN: Increase the Meclizine to 25 mg TID......may need to back off if she gets too sleepy. (8) Meniere disease: QUALIFIERS: Laterality: unspecified laterality Qualified Code(s): H81.09 - Meniere's disease, unspecified ear PLAN: She has vertigo, tinnitus and hearing loss. She was started on HCTZ 12.5 mg daily on 09/10/21. PLAN: Plan Plan DC home when she is ready. Visit Charges Inpatient E&M: 75698 Subs Hosp L2
[2021-09-11 17:05] LABS: Bedside Glucose 119 mg/dL (74-106)
[2021-09-11 19:12] VITALS: BP 127/58; PULSE 89; RESP 17; TEMP 36.2; O2SAT 96
[2021-09-11] MEDS: Atorvastatin Calcium 40 MG Tablet PO (22:03)
[2021-09-11] MEDS: Meclizine HCl 25 MG Tablet PO (22:04)
[2021-09-11 23:21] LABS: Bedside Glucose 149 mg/dL (74-106)
--- NOTE | 2021-09-12 02:50 | NURSING ---
Reviewed and agree with REVENUE CYCLE MANAGER documentation and assessment charting.
[2021-09-12] MEDS: Levothyroxine 100 MCG Tablet PO (05:30)
[2021-09-12] MEDS: Meclizine HCl 25 MG Tablet PO ×3 (05:30→22:29)
[2021-09-12] MEDS: Arthritis Pain Compound 60 CLICK TUBE TOPICAL ×3 (05:30→22:58)
[2021-09-12 07:13] VITALS: BP 126/63; PULSE 89; RESP 16; TEMP 36.2; O2SAT 95
[2021-09-12 07:15] LABS: Bedside Glucose 149 mg/dL (74-106)
[2021-09-12] MEDS: Fluticasone 0.05% 1 SPRAY NASAL.SRY 2 SPRAY NASAL (07:54)
[2021-09-12 07:55] VITALS: PULSE 89
[2021-09-12] MEDS: hydroCHLOROthiazide 12.5mg 12.5 MG PO (07:55)
[2021-09-12] MEDS: Metoprolol(XL)Succ 25 MG Tablet PO (07:55)
[2021-09-12] MEDS: Aspirin 81 MG TAB.CHEW PO ×2 (07:55→16:36)
[2021-09-12] MEDS: Famotidine 20 MG Tablet PO (07:55)
[2021-09-12] MEDS: Lisinopril 5 MG Tablet PO (07:55)
[2021-09-12] MEDS: metFORMIN HCl 500 MG Tablet PO ×2 (07:55→16:35)
[2021-09-12 11:30] LABS: Bedside Glucose 126 mg/dL (74-106)
--- NOTE | 2021-09-12 13:03 | CASEMGMT ---
Social Work IDT met with patient for Team meeting. Discussed patient's progress in PT/OT/SN. Explained Medicare approved 12 days with DC 09/18. Pt agreeable. Pt will DC home with older sister. SW confirmed pt prefers outpatient therapy at [facility]. SW made referral for PT/OT. Once pt has friend bring in walker to ensure SW does not need to order one. SW to follow to ensure DC plans are finalized. Plan: DC home 09/18, [facility] PT/OT ARIES ArboledaW
--- NOTE | 2021-09-12 15:57 | PN_ITS ---
Subjective Subjective Afebrile VSS Maintaining appropriate oxygen saturation on RA Oral intake is good Discussed with nursing - no problems that need addressed Reviewed the PT/OT notes Medication list reviewed. Still has vertigo but, she can not tell me how often or how long it lasts. She does know that moving her head/neck suddenly precipitates vertigo. She feels more tired today than yesterday.....Meclizine was increased. PT is going to initiate vestibular training. She never knows when the vertigo will occur and there is no consistent trigger. She denies chest pain, shortness of breath, palpitations, lightheadedness, nausea, vomiting, abdominal pain, dysuria. Objective Data Objective Data Vital Signs: Vital Signs Temp Pulse Resp BP Pulse Ox O2 Del Method 97.1 F L 89 16 126/63 H 95 Room Air 09/12/21 07:13 09/12/21 07:55 09/12/21 07:13 09/12/21 07:13 09/12/21 07:13 09/12/21 07:13 Oxygen Delivery Method Room Air Weight: 160 lb 7.944 oz Body Mass Index (BMI) 26.6 Intake & Output: Intake and Output for Last 24 Hours 09/10/21 09/11/21 09/12/21 23:59 23:59 23:59 Intake Total 720 / 720 200 / 200 250 / 250 Output Total 450 / 450 550 / 550 Balance 720 / 720 -250 / -250 -300 / -300 Lab / Micro Data Result Diagrams: 09/10/21 05:47 09/10/21 05:47 Labs: Laboratory Results - last 24 hr 09/11/21 16:45: POC Glucose 119 H 09/11/21 22:02: POC Glucose 149 H 09/12/21 06:22: POC Glucose 149 H 09/12/21 11:09: POC Glucose 126 H Physical Exam Const alert, oriented x3, no apparent distress and healthy appearing Constitutional Narrative: Alert cooperative. Was resting in the recliner when I entered the room. General Appearance: cooperative and well kempt HEENT HEENT Narrative: She has no nystagmus. No facial asymmetry. Tongue protrudes on the midline. Eyes PERRL, EOMs intact bilaterally, conjunctivae normal and no scleral icterus Eyes Narrative: PERRL, EOMI, no nystagmus Neck supple and No nodes Neck Narrative: full ROM Chest Chest: symmetrical chest wall rise Resp normal respiratory effort, normal air movement and clear to auscultation bilaterally Resp Narrative: Clear to auscultation with excellent air exchange. Effort and Inspection: able to speak in complete sentences Cardio regular rate, regular rhythm and no gallops GI normal to inspection, nondistended, normoactive bowel sounds, soft to palpation, non-tender and no masses Back/Spine no CVA tenderness Extremity no clubbing, cyanosis or edema and no calf tenderness Skin General Skin Exam: no breakdown Rashes: no rashes Neuro oriented x3, CN's II-XII intact bilaterally, moves all extremities and no focal motor deficits Psych thought process normal, cooperative, affect normal and speech normal Appearance: appropriate Attitude: calm Activity / Motor Behavior: appropriate eye contact Speech: normal speech Assessment & Plan Assessment/Plan (1) Debility: PLAN: Continue PT/OT (2) Fall: QUALIFIERS: Encounter type: subsequent encounter Qualified Code(s): W19.XXXD - Unspecified fall, subsequent encounter PLAN: due to R knee pain and vertigo (3) Closed right hip fracture: QUALIFIERS: Encounter type: subsequent encounter Fracture healing: with routine healing Qualified Code(s): S72.001D - Fracture of unspecified part of neck of right femur, subsequent encounter for closed fracture with routine healing (4) History of reduction of closed fracture: PLAN: By Dr. Moreno. 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 Increase the arthritis cream to TID and provide some compression with therapy to support the knee. I do not really want to inject the knee due to recent fracture and repair and increased risk for infection. Can not start a low dose NSAID since she is on ASA BID for DVT prophylaxis. She would like to follow up with Dr. Moreno for the R knee pain. (7) Vertigo: PLAN: Increase the Meclizine to 25 mg TID......may need to back off if she gets too sleepy. (8) Meniere disease: QUALIFIERS: Laterality: unspecified laterality Qualified Code(s): H81.09 - Meniere's disease, unspecified ear PLAN: She has vertigo, tinnitus and hearing loss. She was started on HCTZ 12.5 mg daily on 09/10/21. I suggested she follow up with ENT post discharge. PLAN: Plan Plan DC home when she is ready. Continue therapy ENT consult post DC. She will discuss the R knee pain with Dr. Moreno at her appt. Charges/Coding Visit Charges Inpatient E&M: 11724 Subs Hosp L2
[2021-09-12 22:00] VITALS: BP 134/63; PULSE 83; RESP 17; TEMP 36.4; O2SAT 97
[2021-09-12] MEDS: Atorvastatin Calcium 40 MG Tablet PO (22:29)
[2021-09-13] MEDS: Meclizine HCl 25 MG Tablet PO ×3 (06:27→20:33)
[2021-09-13] MEDS: Levothyroxine 100 MCG Tablet PO (06:27)
[2021-09-13 07:36] VITALS: BP 110/62; PULSE 82; RESP 17; TEMP 36.5; O2SAT 94
[2021-09-13 07:58] VITALS: BP 110/62; PULSE 82
[2021-09-13] MEDS: Metoprolol(XL)Succ 25 MG Tablet PO (07:58)
[2021-09-13] MEDS: Lisinopril 5 MG Tablet PO (07:58)
[2021-09-13] MEDS: Aspirin 81 MG TAB.CHEW PO ×2 (07:58→16:29)
[2021-09-13] MEDS: metFORMIN HCl 500 MG Tablet PO ×2 (07:58→16:29)
[2021-09-13] MEDS: hydroCHLOROthiazide 12.5mg 12.5 MG PO (07:58)
[2021-09-13] MEDS: Famotidine 20 MG Tablet PO (07:58)
[2021-09-13] MEDS: Fluticasone 0.05% 1 SPRAY NASAL.SRY 2 SPRAY NASAL (07:59)
[2021-09-13] MEDS: Arthritis Pain Compound 60 CLICK TUBE TOPICAL ×3 (07:59→20:34)
[2021-09-13 09:45] VITALS: PULSE 100; O2SAT 96
[2021-09-13 20:25] VITALS: BP 114/64; PULSE 85; RESP 16; TEMP 35.8; O2SAT 94
[2021-09-13] MEDS: Atorvastatin Calcium 40 MG Tablet PO (20:33)
--- NOTE | 2021-09-14 03:37 | NURSING ---
REVIEWED AND AGREE WITH WINDOWS SYSTEM ADMIN'S FUNCTIONAL ASSESSMENT AND HANDOFF CHARTING.
[2021-09-14] MEDS: Arthritis Pain Compound 60 CLICK TUBE TOPICAL ×3 (05:48→20:40)
[2021-09-14] MEDS: Levothyroxine 100 MCG Tablet PO (05:48)
[2021-09-14] MEDS: Meclizine HCl 25 MG Tablet PO ×3 (05:48→20:41)
[2021-09-14 07:30] VITALS: BP 116/69; PULSE 93; RESP 16; TEMP 36.1; O2SAT 95
[2021-09-14] MEDS: Aspirin 81 MG TAB.CHEW PO ×2 (07:58→16:43)
[2021-09-14] MEDS: metFORMIN HCl 500 MG Tablet PO ×2 (07:58→16:43)
[2021-09-14] MEDS: Fluticasone 0.05% 1 SPRAY NASAL.SRY 2 SPRAY NASAL (10:28)
[2021-09-14 10:29] VITALS: PULSE 88
[2021-09-14] MEDS: hydroCHLOROthiazide 12.5mg 12.5 MG PO (10:29)
[2021-09-14] MEDS: Metoprolol(XL)Succ 25 MG Tablet PO (10:29)
[2021-09-14] MEDS: Lisinopril 5 MG Tablet PO (10:29)
[2021-09-14] MEDS: Famotidine 20 MG Tablet PO (10:29)
[2021-09-14 19:23] VITALS: BP 108/66; PULSE 89; RESP 18; TEMP 36.5; O2SAT 93
[2021-09-14] MEDS: Atorvastatin Calcium 40 MG Tablet PO (20:41)
[2021-09-15] MEDS: Arthritis Pain Compound 60 CLICK TUBE TOPICAL ×3 (06:20→20:06)
[2021-09-15] MEDS: Levothyroxine 100 MCG Tablet PO (06:21)
[2021-09-15] MEDS: Meclizine HCl 25 MG Tablet PO ×3 (06:21→20:06)
[2021-09-15 07:30] VITALS: BP 115/73; PULSE 90; RESP 16; TEMP 36.3; O2SAT 95
[2021-09-15] MEDS: metFORMIN HCl 500 MG Tablet PO ×2 (07:44→16:40)
[2021-09-15] MEDS: Aspirin 81 MG TAB.CHEW PO ×2 (07:44→16:40)
[2021-09-15 09:38] VITALS: PULSE 77
[2021-09-15] MEDS: Famotidine 20 MG Tablet PO (09:38)
[2021-09-15] MEDS: hydroCHLOROthiazide 12.5mg 12.5 MG PO (09:38)
[2021-09-15] MEDS: Metoprolol(XL)Succ 25 MG Tablet PO (09:38)
[2021-09-15] MEDS: Fluticasone 0.05% 1 SPRAY NASAL.SRY 2 SPRAY NASAL (09:38)
[2021-09-15] MEDS: Lisinopril 5 MG Tablet PO (09:38)
[2021-09-15 19:26] VITALS: BP 130/64; PULSE 87; RESP 17; TEMP 35.7; O2SAT 94
[2021-09-15] MEDS: Atorvastatin Calcium 40 MG Tablet PO (20:06)
--- NOTE | 2021-09-16 03:04 | NURSING ---
Reviewed and agree with BACKBREAKER documentation and assessment charting.
[2021-09-16] MEDS: Meclizine HCl 25 MG Tablet PO ×3 (05:40→21:40)
[2021-09-16] MEDS: Arthritis Pain Compound 60 CLICK TUBE TOPICAL ×3 (05:40→21:40)
[2021-09-16] MEDS: Levothyroxine 100 MCG Tablet PO (05:40)
[2021-09-16 08:49] VITALS: BP 137/74; PULSE 86; RESP 16; TEMP 37; O2SAT 94
[2021-09-16 09:25] VITALS: BP 137/74; PULSE 86
[2021-09-16] MEDS: metFORMIN HCl 500 MG Tablet PO ×2 (09:25→16:43)
[2021-09-16] MEDS: Metoprolol(XL)Succ 25 MG Tablet PO (09:25)
[2021-09-16] MEDS: Aspirin 81 MG TAB.CHEW PO ×2 (09:25→16:43)
[2021-09-16] MEDS: hydroCHLOROthiazide 12.5mg 12.5 MG PO (09:25)
[2021-09-16] MEDS: Fluticasone 0.05% 1 SPRAY NASAL.SRY 2 SPRAY NASAL (09:25)
[2021-09-16] MEDS: Lisinopril 5 MG Tablet PO (09:26)
[2021-09-16] MEDS: Famotidine 20 MG Tablet PO (09:26)
--- NOTE | 2021-09-16 15:43 | CASEMGMT ---
Social Work Followed up with pt on DC plans. Pt requesting to have HHC instead of OP. Provided list of skilled HHC agencies with quality and resource data. [facility]. Referral made for PT/OT. No DME needs. Family to transport. Plan: DC home 09/18, [facility] PT/OT ARIES Arboleda
--- NOTE | 2021-09-16 19:12 | DS.PCM_ITS ---
Providers Date of Admission: 09/06/21 Primary Care Physician: Dr. Jah Luther MD Reason For Visit: RIGHT HIP FRACTURE Diagnosis Discharge Diagnosis (1) Debility: Status: Acute Code(s): R53.81 - Other malaise (2) Fall: Status: Acute Code(s): W19.XXXA - Unspecified fall, initial encounter Qualifiers: Encounter type: subsequent encounter Qualified Code(s): W19.XXXD - Unspecified fall, subsequent encounter (3) Closed right hip fracture: Status: Resolved Code(s): S72.001A - Fracture of unspecified part of neck of right femur, initial encounter for closed fracture Qualifiers: Encounter type: subsequent encounter Fracture healing: with routine healing Qualified Code(s): S72.001D - Fracture of unspecified part of neck of right femur, subsequent encounter for closed fracture with routine healing (4) History of reduction of closed fracture: Status: Acute Code(s): Z87.81 - Personal history of (healed) traumatic fracture (5) Osteoarthritis: Status: Acute Code(s): M19.90 - Unspecified osteoarthritis, unspecified site Qualifiers: Osteoarthritis location: knee Osteoarthritis type: post-traumatic Laterality: right Qualified Code(s): M17.31 - Unilateral post-traumatic osteoarthritis, right knee (6) Recurrent knee pain: Status: Acute Code(s): M25.569 - Pain in unspecified knee Qualifiers: Laterality: right Qualified Code(s): M25.561 - Pain in right knee (7) Vertigo: Status: Acute Code(s): R42 - Dizziness and giddiness (8) Meniere disease: Status: Suspected Code(s): H81.09 - Meniere's disease, unspecified ear Qualifiers: Laterality: unspecified laterality Qualified Code(s): H81.09 - Meniere's disease, unspecified ear Medications at Discharge Home Medications aspirin 81 mg tablet,delayed release (Adult Low Dose Aspirin) 81 mg PO DAILY heart health 05/22/15 atorvastatin 40 mg tablet 40 mg PO QHS HLD 05/22/15 lisinopril 5 mg tablet 5 mg PO DAILY blood pressure 05/22/15 fluticasone propionate 50 mcg/actuation nasal spray,suspension 2 ea intranasal DAILY allergies 09/04/21 levothyroxine 100 mcg tablet 100 mcg PO DAILY thyroid 09/04/21 metformin 500 mg tablet 500 mg PO BID DM 09/04/21 metoprolol succinate 25 mg tablet,extended release 24 hr 25 mg PO DAILY blood pressure 09/04/21 aspirin 81 mg chewable tablet 81 mg PO BID blood thinner 09/06/21 famotidine 20 mg tablet 20 mg PO DAILY gerd 09/06/21 hydrochlorothiazide 12.5 mg capsule 12.5 mg PO DAILY 30 days #30 caps 09/16/21 meclizine 25 mg tablet 25 mg PO TID 30 days #90 tabs 09/16/21 Hospital Course Operations - (ORIF percutaneous pinning right hip.) Procedures None Summary of Care Provided Minutes Spent on Discharge: 35 Hospital Course: 75 year old female with below past medical history hospitalized for right hip fracture, underwent percutaneous pinning right hip 09/05/2021, admitted to with debility, here for greater than 3 hours daily rehabilitation, strengthening, prior to discharge home with sister. Discharge home with sister 09/18/2021, [facility] PT/OT, No durable medical equipment. Physical Exam Const alert General Appearance: cooperative HEENT normocephalic Eyes PERRL and EOMs intact bilaterally Neck supple, no JVD and no carotid bruits Resp normal respiratory effort, normal air movement and clear to auscultation bilaterally Cardio regular rate and regular rhythm GI normal to inspection, nondistended, normoactive bowel sounds, non-tender and non-distended Extremity normal capillary refill General Extremity: Negative for edema Skin no rashes or lesions noted General Skin Exam: no breakdown Psych affect normal Appearance: appropriate Weight / BMI Weight Weight: 71.8 kg Body Mass Index (BMI) 26.6 ABG / Lab / Microbiology Data Result Diagrams: 09/10/21 05:47 09/10/21 05:47 D/C Instructions Discharge Diet: No restrictions Discharge Activity: Return to Normal Activity, May Shower and Use Walker Weight Bearing Status: Weight bearing as tolerated Call your doctor if you observe: Fever of 101 or Higher, Inability to urinate, Inability to have a bowel movement, Shortness of breath, Dizziness, Fainting spells, Swelling in the ankles, Chest pain and Uncontrolled pain Additional Instructions: Discharge home with sister 09/18/2021, [facility] PT/OT, No durable medical equipment. Meaningful Use Info Meaningful Use Diagnoses (Choose all that apply): None applicable Discharge Plan Admission Admit Date/Time: 09/06/21 16:52 Primary Reason for Your Visit: Debility. Attending Provider: Anne Bowles Primary Care Provider: Jah Luther Instructions Additional Instructions / Restrictions: Discharge home with sister 09/18/2021, [facility] PT/OT, No durable medical equipment. Discharge Orders/Prescriptions Prescriptions: New meclizine 25 mg Tablet 25 mg PO TID 30 Days Qty: 90 0RF hydrochlorothiazide 12.5 mg Capsule 12.5 mg PO DAILY 30 Days Qty: 30 0RF Continued atorvastatin 40 MG tablet 40 mg PO QHS aspirin [Adult Low Dose Aspirin] 81 MG tablet,delayed release (DR/EC) 81 mg PO DAILY Hold Instructions: Resume on 10/04/21. lisinopril 5 MG tablet 5 mg PO DAILY levothyroxine 100 mcg tablet 100 mcg PO DAILY metoprolol succinate 25 mg tablet extended release 24 hr 25 mg PO DAILY fluticasone propionate 50 mcg/actuation spray,suspension 2 ea INTRANASAL DAILY metformin 500 mg Tablet 500 mg PO BID famotidine 20 mg tablet 20 mg PO DAILY Rx Instructions: X4 weeks aspirin 81 mg tablet,chewable 81 mg PO BID Rx Instructions: X4 weeks then resume daily aspirin Discontinued tramadol 50 mg Tablet 50 - 100 mg PO Q6H PRN PRN (Reason: Pain Score 4-10) Qty: 0 0RF Referrals / Follow Up: Jah Luther MD [Primary Care Provider] - 09/26/21 4:30 pm Adam Moreno MD [STAFF PHYSICIAN] - 09/19/21 2:00 pm Disposition Disposition (needs filled in before D/C Order can be placed): Home Health Service
[2021-09-16 19:28] VITALS: BP 109/59; PULSE 88; RESP 16; TEMP 36.4; O2SAT 96
[2021-09-16] MEDS: Atorvastatin Calcium 40 MG Tablet PO (21:40)
--- NOTE | 2021-09-17 04:00 | NURSING ---
Reviewed and agree with NAIL KEGGER documentation and assessment charting.
[2021-09-17] MEDS: Arthritis Pain Compound 60 CLICK TUBE TOPICAL ×3 (05:44→20:04)
[2021-09-17] MEDS: Meclizine HCl 25 MG Tablet PO ×3 (05:44→20:05)
[2021-09-17] MEDS: Levothyroxine 100 MCG Tablet PO (05:44)
[2021-09-17 07:23] VITALS: BP 119/61; PULSE 78; RESP 17; TEMP 35.9; O2SAT 96
[2021-09-17] MEDS: Aspirin 81 MG TAB.CHEW PO ×2 (07:50→16:52)
[2021-09-17] MEDS: metFORMIN HCl 500 MG Tablet PO ×2 (07:50→16:52)
[2021-09-17 07:51] VITALS: PULSE 78
[2021-09-17] MEDS: Fluticasone 0.05% 1 SPRAY NASAL.SRY 2 SPRAY NASAL (07:51)
[2021-09-17] MEDS: hydroCHLOROthiazide 12.5mg 12.5 MG PO (07:51)
[2021-09-17] MEDS: Metoprolol(XL)Succ 25 MG Tablet PO (07:51)
[2021-09-17] MEDS: Famotidine 20 MG Tablet PO (07:52)
[2021-09-17] MEDS: Lisinopril 5 MG Tablet PO (07:52)
[2021-09-17 19:18] VITALS: BP 110/60; PULSE 85; RESP 16; TEMP 36.5; O2SAT 99
[2021-09-17 20:00] VITALS: PULSE 85; RESP 16
[2021-09-17] MEDS: Atorvastatin Calcium 40 MG Tablet PO (20:04)
--- NOTE | 2021-09-18 01:52 | NURSING ---
Reviewed and agree with DIETICIAN documentation and assessment charting.
[2021-09-18] MEDS: Levothyroxine 100 MCG Tablet PO (05:14)
[2021-09-18] MEDS: Arthritis Pain Compound 60 CLICK TUBE TOPICAL (05:14)
[2021-09-18] MEDS: Meclizine HCl 25 MG Tablet PO (05:14)
[2021-09-18 07:40] VITALS: BP 117/62; PULSE 88; RESP 16; TEMP 36.5; O2SAT 95
[2021-09-18] MEDS: metFORMIN HCl 500 MG Tablet PO (07:46)
[2021-09-18] MEDS: Aspirin 81 MG TAB.CHEW PO (07:46)
[2021-09-18] MEDS: Fluticasone 0.05% 1 SPRAY NASAL.SRY 2 SPRAY NASAL (07:46)
[2021-09-18] MEDS: hydroCHLOROthiazide 12.5mg 12.5 MG PO (07:46)
[2021-09-18] MEDS: Lisinopril 5 MG Tablet PO (07:47)
[2021-09-18] MEDS: Famotidine 20 MG Tablet PO (07:47)
[2021-09-18 07:50] VITALS: PULSE 88
[2021-09-18] MEDS: Metoprolol(XL)Succ 25 MG Tablet PO (07:50)
[2021-09-18 11:37] VITALS: BP 117/62; PULSE 88; RESP 16; TEMP 36.6; O2SAT 95
--- NOTE | 2021-09-18 11:38 | NURSING ---
Discharged home with family. discharged instructions, medications and appointments reviewed with pt. denies questions or concerns
== END 2021-09-18 10:40 | disposition home health service (06) | DRG 482 ==
PROVIDERS: Admitting Provider Internal Medicine; PCP Family Medicine; Visit Provider Internal Medicine
DX: S72.001A Fracture of unspecified part of neck of right femur, initial encounter for closed fracture (principal); D50.9 Iron deficiency anemia, unspecified; E11.9 Type 2 diabetes mellitus without complications; E03.9 Hypothyroidism, unspecified; E78.00 Pure hypercholesterolemia, unspecified; M17.11 Unilateral primary osteoarthritis, right knee; I25.10 Atherosclerotic heart disease of native coronary artery without angina pectoris; I10 Essential (primary) hypertension; H93.19 Tinnitus, unspecified ear; W19.XXXA Unspecified fall, initial encounter; S50.311A Abrasion of right elbow, initial encounter; S60.512A Abrasion of left hand, initial encounter; H81.10 Benign paroxysmal vertigo, unspecified ear; H81.09 Meniere's disease, unspecified ear; Z79.82 Long term (current) use of aspirin; Z79.899 Other long term (current) drug therapy; Z79.890 Hormone replacement therapy; Z79.84 Long term (current) use of oral hypoglycemic drugs; R53.81 Other malaise; M81.0 Age-related osteoporosis without current pathological fracture; Z95.5 Presence of coronary angioplasty implant and graft
CPT/HCPCS: 36415; 51702; 70450; 73501; 73502; 73564; 76000; 80048; 80053; 81001; 82306; 82962; 83036; 83735; 83880; 84100; 84443; 84484; 85025; 85027; 86850; 86900; 86901; 87426; 93005; 97110; 97116; 97124; 97162; 97166; 97530; 97535; 97802; 99251; 99252; 99285; C1713; J7030; A4216; G0463; J2405

== ENCOUNTER → 2022-03-28 | Outpatient (CLI) | payer MEDICARE, OTHER, SELFPAY ==
[2022-03-28 10:46] LABS: Microalbumin,Random Urine 9.5 mg/L (NO RANGE EST.); Microalbumin:Creatinine Ratio 14.4 mg/g CRE (<30 mg/g CRE)
[2022-03-28 10:47] LABS: AST(SGOT) 16 U/L (15-37); Alanine Aminotransfer ALT/SGPT 32 U/L (13-56); Albumin, Serum 3.7 g/dL (3.2-5.0); Alkaline Phosphatase 57 U/L (45-117); Anion Gap 9 (5-15); BUN 12 mg/dL (7-18); BUN/Creat Ratio 11.9 RATIO (10-20); Calcium,Total 9.4 mg/dL (8.5-10.1); Chloride 103 mmol/L (98-107); Cholesterol 100 mg/dL (200); Creatinine, Serum 1.01 mg/dL (0.55-1.02); EST Glomerular Filtration Rate 57 mL/min (>60); Est Glom Filt Rate - Afr Amer 69 mL/min (>60); Globulin 3.7 g/dL (2.2-4.2); Glucose 138 mg/dL (74-106); High Density Lipoprotein 42 mg/dL; Potassium 4.2 mmol/L (3.5-5.1); Protein, Total 7.4 g/dL (6.4-8.2); Sodium Level 139 mmol/L (136-145); Thyroid Stim Hormone (TSH) 2.24 uIU/mL (0.358-3.74); Triglycerides 142 mg/dL; Very Low Density Lipoprotein 28 mg/dL (5-40)
== END | disposition home or self-care (01) ==
LOC: MTLAB 08:06
PROVIDERS: PCP Family Medicine; Referring Provider Family Medicine; Visit Provider Family Medicine
DX: E11.9 Type 2 diabetes mellitus without complications (principal); E03.9 Hypothyroidism, unspecified
CPT/HCPCS: 36415; 80053; 80061; 82043; 82570; 84439; 84443

== ENCOUNTER → 2022-04-24 | Outpatient (CLI) | payer MEDICARE, OTHER, SELFPAY ==
--- NOTE | 2022-04-24 14:22 | BI_ITS ---
MAMMOGRAPHY - BILATERAL SCREENING REASON FOR EXAM: Female, 76 years old. Routine annual screening examination. PERTINENT HISTORY: Sister with breast cancer. Aunts with breast cancer. TECHNIQUE: Digital bilateral breast clau (3D mammographic acquisition) in the CC and MLO projections. 2-D mediolateral oblique (MLO) and craniocaudad (CC) views of both breasts were obtained. CAD: Full Field Digital Mammography with Computer Added Detection was performed. COMPARISON: Comparison is made with prior study of 05/11/2020 and 04/28/2018. FINDINGS: Breast Composition: There are scattered areas of fibroglandular density. There are no dominant masses or suspicious calcifications. No other significant abnormalities are identified. There has been no significant change since the prior study. BI/SCRN MAMM (CAD)W/CLAU BILAT IMPRESSION: Stable bilateral screening mammogram. Yearly follow-up mammogram recommended. (A) ASSESSMENT CATEGORY: BIRADS Category 1: Negative. A letter regarding these results will be sent to the patient by the facility within 30 days. Approximately 10% of breast cancers are not detected by mammography. A normal mammogram should not delay biopsy of a clinically suspicious abnormality. [id number] Electronically Signed: Man Rivas MD at 17:06 [facility] ,
--- NOTE | 2022-04-24 14:30 | BD_ITS ---
STUDY: DUAL ENERGY X-RAY ABSORPTIOMETRY / DXA REASON FOR EXAM: Female, 76 years old. M810 TECHNIQUE: Bone Mineral Density (BMD) measurements of lumbar spine and left hip were obtained. COMPARISON: Comparison is made with prior study dated 04/28/2018. FINDINGS: Lumbar Spine (L1-L4): g/cm2 (0.916) / T-score (-0.9) / Z-score (1.5) Findings are suggestive of normal bone density with a low fracture risk. Left Femur Total: g/cm2 (0.863) / T-score (-0.6) / Z-score (1.2) Left Femoral Neck: g/cm2 (0.707) / T-score (-1.3) / Z-score (0.9) The T-Scores on the most recent prior examination were: Lumbar Spine (L1-L4): There has been worsening of bone density since the previous examination. Left Femur Total: which represents a worsening of 1.8%. BD/Dexa Bone Density Study IMPRESSION: The patient is considered osteopenic as outlined below according to World John Organization (WHO) criteria with a low fracture risk. There has been worsening of bone density since the previous examination. Reference Information: The T-score is the number of standard deviations above or below the standard which is normal for young adults at their peak bone mineral density. The World Health Organization (WHO) interprets the T-scores as follows: Above -1 Normal bone density Between -1 and -2.5 Osteopenia Equal to / or below -2.5 Osteoporosis As a practical clinical guideline, osteopenia may be graded as follows: Mild -1 through -1.5 Moderate -1.6 through -2.0 Severe -2.1 through -2.4 The Z-score is the number of standard deviations above or below age-matched controls. A Z-score of less than -1.5 would be considered abnormal. References: 1. NIH Osteoporosis and Related Bone Diseases www osteo.org 2. International Society for Clinical Densitometry www iscd.org 3. National Osteoporosis Foundation www nof.org Electronically Signed: Man Rivas MD at 15:33 EST ,
== END | disposition home or self-care (01) ==
LOC: OPBD 14:18
PROVIDERS: PCP Family Medicine; Referring Provider Family Medicine; Visit Provider Family Medicine
DX: Z00.00 Encounter for general adult medical examination without abnormal findings (principal); Z12.31 Encounter for screening mammogram for malignant neoplasm of breast; M81.0 Age-related osteoporosis without current pathological fracture
CPT/HCPCS: 77063; 77067; 77080

== ENCOUNTER 2022-04-30 13:00 | Outpatient (RCR) | payer MEDICARE, OTHER, SELFPAY ==
--- NOTE | 2022-04-10 14:39 | HP.OTEVAL ---
Patient's Visit Information JEREL ROSA is a 76 year old F, referred to Occupational Therapy by Dr. Jah Luther MD, with a diagnosis of bilateral wrist pain. Date of Evaluation: 04/10/22 Occupational Therapist: Malina Morillo, KIAR/Susan, CHT - Subjective This 76 year old female was seen for OT eval with dx of bilateral wrist pain- pt states this started about 4 months ago. pt was hopeful that would go away. pt states she was trying to use a wrist wrap on her wrist but this she felt limited her mobility and use. pt is right handed. pt states left wrist is more bothersome than right. pt states she had a heating rice pad and this did not help either. pt states she does take Advil but she can not tell if this helps or not. - Pain right 0 Pain Intensity Range: 6 left 0 Pain Intensity Range: 6 - ROM Forearm: right/left WNL Wrist: right 55/55 left 60/70 Opposition: Kapandji opposition scale right 10 left 10 ROM Comments: right UD 20* RD 10*. left UD 25* RD 15*. pt demo good ROM of wrist - Strength Senior Mechanical Designer: right 70# left 60# Lateral Pinch: right 10# left 10# Tripod Pinch: right 8# left 5# Tip-to-Tip Pinch: right 4# left 2# Strength Comments: pt demo weakness of left more than right. pt denied pain with resistive testing or carpal mobilization - Sensation Sensation Comments: denies - Quick DASH-Disab of Arm,Shoulder& Hand Quick DASH Score: 10.0000 - Goals Goal:: pt will report pain no greater than 1/10 in bilateral wrist by d/c Goal:: Pt will demo understanding of joint protection and ergonomics when performing BADLs and IADLs by d/c. Pt will demo understanding of adaptive Equipment use to decrease stress on joints to allow pt to perform BADSL and IADLS at ARJUN level. Goal:: pt will demo increase in wrist stabilization by understanding HEP/ avoiding prolonged wrist flex/or/ext positions - Rehabilitation General Assessment: pt demo with left wrist pain limiting use of UE with ADLs and IADLs pt would benefit from skilled OT services 1-2x week for 4 weeks to decrease wrist pain increase IND with ADLs and IADLs. Today therapist ed. pt on avoiding prolonged positions of wrist in flexion or ext. pt demo understanding- therapist ed. on POC pt demo understanding and agree to POC. Rehabilitation Potential: Good - Anticipated Interventions A/AAROM/PROM, Strengthening, Triggerpoint Release, Modalities, Orthoses, Joint Protection/Energy Conservation, Ergonomic Education, Education re Diagnosis - Visit Plan Frequency: 1-2x /Week Duration: 4 Weeks General Plan: pt to check if she is resting wrist in prolonged position ie while reading or letting hang when she is sitting as at rest she has pain-. may initiate isometric of wrist/forearm. ed. on joint protection. ad. eq. as needed TEXT: Thank you for the opportunity to evaluate your patient. For Medicare and Medicare HMO plans, please review the plan of care and approve it. It will need to be FAXED BACK to us at [phone] for Medicare purposes. Please let me know if there are questions or concerns regarding this plan of care. Physician Signature: Date:
--- NOTE | 2022-04-30 13:29 | HP.OTDCSUM ---
It has been my pleasure to treat JEREL ROSA under orders from Dr. Jah Luther MD, for the diagnosis of bilateral wrist pain for a total of 7 visit(s). Please see the following information for a summary of their discharge status. % Improvement: 75 Objective/Function: pt demo a right professional healthcare representative strength of 60# and left at 60# pt was not limited with strength but more with pain. pt demo understanding of joint protection marianna. to limit pain and stress on joints. pt did well and was receptive to adaptive marianna. pt agrees with d/c. Patient Goals: Decrease Pain Goal:: pt will report pain no greater than 1/10 in bilateral wrist by d/c Goal:: Pt will demo understanding of joint protection and ergonomics when performing BADLs and IADLs by d/c. Pt will demo understanding of adaptive Equipment use to decrease stress on joints to allow pt to perform BADSL and IADLS at ARJUN level. Goal:: pt will demo increase in wrist stabilization by understanding HEP/ avoiding prolonged wrist flex/or/ext positions Plan: cont with wrist stabilization or isometrics. PB Discharge Comments: pt was seen for 7 OT sessions- therapist ed. pt on joint protection - ad. marianna. for daily tasks to decrease stress on joint structures. pt was receptive and demo understanding. pt agrees to D/C. If there are questions or concerns regarding this patient's occupational therapy, please fell free to call me at [phone]. Thank you for the referral of this patient. Sincerely, Malina Morillo, OTR/L, CHT
== END 2022-04-30 14:12 | disposition home or self-care (01) ==
LOC: OT 13:00
PROVIDERS: PCP Family Medicine; Referring Provider Family Medicine; Visit Provider Family Medicine
DX: M25.531 Pain in right wrist (principal); M25.532 Pain in left wrist; M24.231 Disorder of ligament, right wrist; M24.232 Disorder of ligament, left wrist
CPT/HCPCS: 97110; 97140; 97166; 97530

== ENCOUNTER → 2023-03-11 | Outpatient (CLI) | payer MEDICARE, OTHER, SELFPAY ==
--- NOTE | 2023-03-11 08:51 | RAD_ITS ---
STUDY: X-RAY - RIGHT HAND REASON FOR EXAM: Female, 77 years old. Right thumb locking TECHNIQUE: 3 view(s) of the hand. COMPARISON: None. FINDINGS: Normal radiocarpal articulation. Normal distal radioulnar joint. Normal visualized carpal bones. Normal carpal articulations There is degenerative arthrosis of the carpometacarpal (CMC) articulation of the thumb. Normal second through fifth carpometacarpal joints. Normal metacarpi. Normal metacarpophalangeal joint of the thumb. There is degenerative arthrosis of the interphalangeal joint of the thumb with articular joint space narrowing. Normal proximal and distal phalanges of the thumb. Normal metacarpophalangeal joints of the second through fifth fingers. There is diffuse articular joint space narrowing of the proximal and distal interphalangeal joints of the second through fifth fingers, but without erosive changes or periarticular soft tissue swelling. Normal phalanges of the second through fifth fingers. The soft tissue structures are unremarkable. 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 No acute fracture or subluxation. Electronically Signed: Ana Miller MD at 16:59 EST ,
--- OUTSIDE RECORDS SUMMARY | 2023-03-11 09:11 | XMS RPT_ITS | CCD ---
Author Name Unknown Address [address] [place] [address] Organization [facility] Care Team Providers Care Bed Rubber Name Role Phone RAI DOWNING, SUNSHINE [place] Primary Care Physician ROBERTO DOWNING, DR SHAGGY Fulton Attending Rachid Saldivar MD, SUNSHINE [place] Primary Care Unavailable MARTHA BROWN, CRISTIAN Attending Rachid Saldivar MD, SUNSHINE [place] Primary Care Unavailable ROBERTO DOWNING, DR SHAGGY Fulton Attending Rachid Saldivar MD, SUNSHINE [place] Primary Care Ethan MEJIA MD, DR SHAGGY Fulton Admitting Rachid Saldivar MD, SUNSHINE [place] Consulting Ethan BROWN, ROSA Dumas Consulting Sara MEJIA MD, DR SHAGGY Fulton Attending Rachid Saldivar MD, SUNSHINE [place] Primary Care Unavailable Allergies Allergy Classification Reported Allergen(s) Allergy Type Date of Onset Reaction(s) Facility (3 sources) Acetaminophen; Translations: [acetaminophen] Drug Allergy Lightheadedness (finding) [facility] (3 sources) oxyCODONE; Translations: [oxycodone] Drug Allergy Upset stomach (finding) [facility] (3 sources) Penicillins; Translations: [penicillins] Drug allergy [facility] Medications Current Medications Medication Drug Class(es) Dates Sig (Normalized) Sig (Original) acetaminophen 1000 mg oral tablet (1 source) Start: 10-08-2022 take 1 tablet by mouth once daily Tylenol Dose : 1,000 mg = 2 tab(s), Oral, q8h, not to exceed 3000 mg/day, 0 Refill(s) Start Date: 10/08/22 Status: Ordered aspirin 81 mg oral tablet (3 sources) Platelet Aggregation Inhibitor, Nonsteroidal Anti-inflammatory Drug Start: 10-08-2022 End: 11-06-2022 take 1 dose by mouth twice daily at mealtime aspirin Dose : 81 mg =, Oral, BIDM, Take 81 mg aspirin twice daily with food for 4 weeks postoperatively for DVT prophylaxis., 0 Refill(s) Start Date: 10/08/22 Stop Date: 11/06/22 Status: Ordered Completed/Discontinued Medications Medication Drug Class(es) Dates Sig (Normalized) Sig (Original) 24 hr metoprolol succinate 25 mg extended release oral tablet (4 sources) beta-Adrenergic Marino Start: 10-08-2022 End: 10-08-2022 take 0.5 tablet by mouth in the morning metoprolol succinate 25 mg oral TABLET extended release Start: 10/08/22 8:00:00 AM EDT, Dose = 25 mg, = 0.5 tab(s), Oral, Hold if SBP (mmHg) Start Date: 10/08/22 Stop Date: 10/08/22 Status: Completed Problems Problem Classification Problem Date Documented Da te Episodic/Chronic Acute and unspecified renal failure (3 sources) Acute injury of kidney 11-25-2019 Episodic Results Test Name Value Interpretation Reference Range Facil ity Vital Signs Date Time Vital Sign Value Performing Clinician Faci lit 10-08-2022 13:40-0400 Body weight 25.5 kg/m2 DR SHAGGY MEJIA MD [facility] 10-08-2022 11:40-0400 Body temperature 97.52 [degF] DR SHAGGY MEJIA MD [facility] 10-08-2022 11:40-0400 Diastolic Blood Pressure Non-Invasive [address] SHAGGY MEJIA MD [facility] 10-08-2022 11:40-0400 Heart rate 83 /min DR SHAGGY MEJIA MD [facility] 10-08-2022 11:40-0400 Reason For Taking VItal Signs DR SHAGGY MEJIA MD [facility] 10-08-2022 11:40-0400 Systolic Blood Pressure Non-Invasive [address] SHAGGY MEJIA MD [facility] 10-08-2022 08:51-0400 Heart rate 93 /min DR SHAGGY MEJIA MD [facility] 10-08-2022 07:50-0400 Body temperature 97.52 [degF] DR SHAGGY MEJIA MD [facility] 10-08-2022 07:50-0400 Diastolic Blood Pressure Non-Invasive [address] SHAGGY MEJIA MD [facility] 10-08-2022 07:50-0400 Heart rate 73 /min DR SHAGGY MEJIA MD [facility] 10-08-2022 07:50-0400 Reason For Taking VItal Signs DR SHAGGY MEJIA MD [facility] 10-08-2022 07:50-0400 Systolic Blood Pressure Non-Invasive [address] SHAGGY MEJIA MD [facility] 10-08-2022 04:18-0400 Body temperature 97.7 [degF] DR SHAGGY MEJIA MD [facility] 10-08-2022 04:18-0400 Diastolic Blood Pressure Non-Invasive [address] SHAGGY MEJIA MD [facility] 10-08-2022 04:18-0400 Heart rate 74 /min DR SHAGGY MEJIA MD [facility] 10-08-2022 04:18-0400 Reason For Taking VItal Signs DR SHAGGY MEJIA MD [facility] 10-08-2022 04:18-0400 Respiratory rate 16 /min DR SHAGGY MEJIA MD [facility] 10-08-2022 04:18-0400 Systolic Blood Pressure Non-Invasive [address] SHAGGY MEJIA MD [facility] 10-07-2022 23:03-0400 Heart rate 85 /min DR SHAGGY MEJIA MD [facility] 10-07-2022 23:03-0400 Respiratory rate 16 /min DR SHAGGY MEJIA MD [facility] 10-07-2022 16:15-0400 Heart rate 95 /min DR SHAGGY MEJIA MD [facility] 10-07-2022 14:43-0400 Body height 165.[address] SHAGGY MEJIA MD [facility] 10-07-2022 14:43-0400 Body weight 69.[address] SHAGGY MEJIA MD [facility] 10-07-2022 14:43-0400 Body weight 25.5 kg/m2 DR SHAGGY MEJIA MD [facility] 10-07-2022 13:23-0400 Body temperature 96.62 [degF] DR SHAGGY MEJIA MD [facility] 10-07-2022 13:15-0400 Respiratory Rate - Anes 15 br/min DR SHAGGY MEJIA MD [facility] 10-07-2022 13:10-0400 Respiratory Rate - Anes 16 br/min DR SHAGGY MEIJA MD [facility] 10-07-2022 13:05-0400 Respiratory Rate - Anes 15 br/min DR SHAGGY MEJIA MD [facility] 10-07-2022 07:47-0400 Body height 165.[address] SHAGGY MEJIA MD [facility] 10-07-2022 07:47-0400 Body temperature 97.7 [degF] DR SHAGGY MEJIA MD [facility] 10-07-2022 07:47-0400 Body weight 69.[address] SHAGGY MEJIA MD [facility] 09-19-2022 10:00-[address] SHAGGY MEJIA MD [facility] 09-19-2022 10:00-[address] SHAGGY Bravo [facility] 09-19-2022 10:00-0400 Body height 165.[address] SHAGGY MEJIA MD [facility] 09-19-2022 10:00-0400 Body weight 69.[address] SHAGGY MEJIA MD [facility] 09-19-2022 10:00-0400 Body weight 25.5 kg/m2 DR SHAGGY MEJIA MD [facility] 09-19-2022 10:00-0400 Diastolic Blood Pressure Non-Invasive [address] SHAGGY MEJIA MD [facility] 09-19-2022 10:00-0400 Heart rate 68 /min DR SHAGGY MEJIA MD [facility] 09-19-2022 10:00-0400 Respiratory rate 18 /min DR SHAGGY MEJIA MD [facility] 09-19-2022 10:00-0400 Systolic Blood Pressure Non-Invasive [address] SHAGGY MEJIA MD [facility] Encounters Encounter Date Encounter Type Care Provider Facility Start: 10-07-2022 End: 10-08-2022 Evaluation and management of inpatient DR SHAGGY MEJIA MD Facility:[facility] Start: 10-07-2022 End: 10-08-2022 Evaluation and management of inpatient DR SHAGGY MEJIA MD [facility] Start: 09-30-2022 End: 10-01-2022 ambulatory CRISTIAN THOMAS [facility]NAGER-[employer]ER Facility:[facility] Start: 09-19-2022 End: 09-20-[address] SHAGGY MEJIA MD Facility:[facility] Start: 09-19-2022 End: 09-19-[address] SHAGGY MEJIA MD [facility] Start: 09-19-2022 End: 09-19-[address] SHAGGY MEJIA MD [facility] Procedures Date Procedure Procedure Detail Performing Clinician Start: 09-05-2021 Bone structure of fe mur (body structure) DR SHAGGY MEJIA MD Immunizations Immunization Date Immunization Notes Care Provider [facility] 04-04-2022 tetanus toxoid, redu odin diphtheria toxoid, and acellular pertussis vaccine, adsorbed DR SHAGGY MEJIA MD [facility] 01-09-2021 SARS-CoV-2 (COVID-19 ) mRNA-[address] SHAGGY MEJIA MD [facility] 07-04-2020 SARS-CoV-2 (COVID-19 ) mRNA-[address] SHAGGY MEJIA MD [facility] 06-06-2020 SARS-CoV-2 (COVID-19 ) mRNA-[address] SHAGGY MEJIA MD [facility] 05-09-2020 SARS-CoV-2 (COVID-19 ) mRNA-[address] SHAGGY MEJIA MD [facility] Payers Date Payer Category Payer Medicare [id number] 2022 Private Health Insurance [facility] [id number] 1945 Unknown [id number] 1945 Unknown [id number] 1945 Unknown [id number] 1945 Unknown [id number] Social History Date Type Detail Facility Start: 02-03-2020 Tobacco smoking status Never s moked tobacco (finding) [facility] Sex Assigned At Female [facility] Functional Status Date Assessment Result Facility 10-08-2022 Functional Status Other: 7AM-150PM [facility] 10-08-2022 Functional Status Mod I [facility] 10-08-2022 Functional Status Single level home [facility] 10-07-2022 Functional Status [facility] 10-07-2022 Functional Status [facility] 10-07-2022 Functional Status [facility] 10-07-2022 Functional Status ice chips and sips take n [facility] 10-07-2022 Functional Status [facility] Mental Status Date Assessment Result Facility 10-08-2022 Mental Status Oriented x 4 [facility] 10-08-2022 Mental Status [facility] [place] 10-07-2022 Mental Status [facility] [place] Clinical Notes 09-19-2022 to 10-08-2022 Note Date & Type Note Facility 10-08-2022 Note Discharge Instructions Thank you for allowing [facility] to assist you with your healthcare needs. The following is important discharge information regarding your hospital visit. Your Care Team [facility] Your Diagnosis Anemia CAD IN [place]NI[place] ARTERY Diabetes mellitus type 2 HYPERTENSION, BENIGN ESSENTIAL Right hip pain S/P total right hip arthroplasty What to do next Scheduled Follow-Up Appointments Appointment Type When Where Contact InformationCV OV 02/19/2023 09:15 AM SADI [facility]ments Follow Up with SUNSHINE ATWOOD MD When 10/24/2022 04:50 PM EDT Why: Please have your labwork done a few days prior to this appointment so you can go over your results. Where: [facility] [address] [place] [address]- Follow Up with SOURAV COE PA-C, Orthopedic When 10/20/2022 09:00 AM EDT Why: This is your post-op appointment. Follow-up as scheduled. Where: [facility] [address] [place] [address]- Follow Up with [facility] When 10/10/2022 09:00 AM EDT Why: This is your first physical therapy appointment. Follow-up as scheduled. Where: [facility] [place] [address] [phone] The Following Activity and Diet Have Been Ordered for You FOLLOW POST-OP INSTRUCTIONS The Following Treatments Have Been Ordered for You Discharge Labs Discharge Outpatient Labwork - Ordered -- CBC, Post-operative Anemia, follow-up within: 2 weeks, Results Notify to: SUNSHINE ATWOOD MD, 10/08/22 6:49:00 EDT Discharge Radiology No qualifying data available. Other Therapies No qualifying data available. Post Acute Orders No qualifying data available. Allergies OxyCONTIN (Upset stomach) acetaminophen (Lightheaded) penicillins Medications Please ask your primary doctor or pharmacist before taking any other medication not listed, including over the counter drugs, herbal medications, vitamins and or supplements as they may interact with your home medications. What How Much When Why Instructions Last Dose New acetaminophen (Tylenol) 1,000 Milligram by mouth Every 8 hours not to exceed 3000 mg/ day New docusate-senna (Senokot S 50 mg-8.6 mg oral tablet) 2 tab(s) by mouth Two (2) times a day Duration: 3 Days Take until first bowel movement, then as needed Pickup at [facility] New doxycycline (doxycycline hyclate 100 mg oral capsule) 1 cap by mouth Every 12 hours Duration: 14 Days Pickup at [facility] New famotidine (Pepcid 20 mg oral tablet) 1 tab(s) by mouth Once a day Pickup at [facility] New folic acid (folic acid 1 mg oral tablet) 1 tab(s) by mouth Once a day Anemia Duration: 14 Days Pickup at [facility] New traMADol (Ultram 50 mg oral tablet) 1 tab(s) by mouth Every 6 hours S/P total right hip arthroplasty Duration: 7 Days Pickup at [facility] Changed aspirin 81 Milligram by mouth Twice daily with meals Duration: 30 Days Take 81 mg aspirin twice daily with food for 4 weeks postoperatively for DVT prophylaxis. Unchanged atorvastatin (atorvastatin 20 mg oral tablet) 1 tab(s) by mouth Once a day Unchanged calcium carbonate (calcium (as carbonate) 600 mg oral tablet) 2 tab(s) by mouth Once a day Unchanged cholecalciferol (Vitamin D3 2000 intl units oral capsule) 1 cap by mouth Every day Unchanged ferrous sulfate (IRON (ferrous sulfate 325 mg) 65 mg oral tablet) 1 tab(s) by mouth Twice daily with meals Take with food. Unchanged fluticasone nasal (fluticasone proprionate NASAL 50 mcg/ spray) 1 spray(s) each nostril Two (2) times a day Unchanged glipiZIDE (glipiZIDE 2.5 mg oral tablet, extended release) 0.5 tab(s) by mouth Once a day Unchanged levothyroxine (levothyroxine 100 mcg (0.1 mg) oral tablet) 1 tab(s) by mouth Once a day Unchanged lisinopril (lisinopril 5 mg oral tablet) 1 tab(s) by mouth Every day Unchanged magnesium gluconate (magnesium gluconate 500 mg oral tablet) 1 tab(s) by mouth Two (2) times a day Unchanged metFORMIN (MetFORMIN (Eqv-Glucophage XR) 500 mg oral tablet, EXTENDED RELEASE) 1 tab(s) by mouth Two (2) times a day Unchanged metoprolol (metoprolol succinate 25 mg oral tablet, extended release) 1 tab(s) by mouth Once a day with a meal Unchanged multivitamin (Multivitamin) 1 tab(s) by mouth Every day Unchanged multivitamin (Vitamin B Complex oral capsule) 1 cap by mouth Once a day Unchanged selenium by mouth Once a day Unchanged zinc acetate (zinc (as acetate) 25 mg oral capsule) 1 cap by mouth Three (3) times a day Pharmacy Information [facility]: [address] [place], [place] [phone] Please take this list to your next doctor s visit. Bring all medications you take, including over the counter medications, herbals and other supplements with you to your doctor s visit. Patients and families are reminded to discard old lists and to update any records with all medication providers or retail pharmacies. Education Materials [facility] Post-operative Instructions PLEASE FOLLOW [facility] POST-OP INSTRUCTIONS GIVEN WATCH FOR SIGNS OF INFECTION: call the office ([phone]) if experencing any of the following: (Usually appears 36-48 hours after surgery) Increased temperature (101 degrees Fahrenheit or higher) Redness or swelling Increased uncontrolled pain Foul odor or drainage Calf discomfort Significant swelling Or if having any chest pain, shortness of breath, or difficulty breathing or swallowing call the office or go the nearest Emergency Room. If you have any questions, please call your doctor at the number listed on your follow up instructions. Form: 338A ([id number]) R: 07/13 Additional Information VACCINATE! IT SAVES LIVES! Members of the community who have not yet received the COVID-19 vaccine and would like to receive it can visit one of [facility] vaccine clinics. There are many vaccine clinic locations within the [facility]. For locations and available times, please visit https://gettheshot.coronavirus.o hio.gov/. It is important to note that some COVID mobile vaccine clinics are held outdoors and may be canceled in rainy or stormy conditions. To learn more about pediatric vaccinations (ages 5-11), we invite you to visit the [facility] webpage. https://www.[facility].org/p ages/2211-Tsyvn-Demmdlpdppe-Freq ckatmq-Faima-Zhduegnpl.html To learn more about the COVID-19 vaccine, we invite you to visit the CDC website for a list of frequently asked questions.https://www.cdc.gov/co ronavirus/2019-ncov/vaccines/faq .html [facility] Patient Portal Access Instructions: Stay connected with your healthcare team and access your personal medical information anytime with the [facility] Patient Portal. Please follow the directions below to create your [facility] account: 1.Access the email account you provided upon registration to the hospital/physician office.2.Look for an invitation email from [facility].3.Open the email and access the invitation link: Accept Invitation to [facility].4.Fill in the required mahoney to create your account. To access your account, visit [facility]. Click the blue button labeled Access Patient Portal and then log in with the username and password that you created in the steps above. You will be able to view your test results, lab results, a summary of your visits, upcoming appointments and more. There is also a convenient messaging option where you can send secure messages to your provider. In addition, you will have the ability to download any documents or summaries to your computer and/or send the information securely to a physician. Remember that your healthcare information is confidential, so carefully consider who you will allow to register on the [facility] Patient Portal for access to your information. You can also access the [facility] Patient Portal on the [facility] Anywhere francisca. Simply click on Patient Portal and then log into your account. If you would like to receive a full copy of your medical records, please contact the [facility] Medical Records Department by calling [phone], Thursday through Thursday between 8 a.m. and 4:30 p.m. HOW TO SAFELY DISPOSE OF PRESCRIPTION MEDICATIONS Please use one of the following methods to safely dispose of your unused medications. 1.Use a drug disposal kit: the drug disposal pouch allows you to safely discard your old and unused drugs. Ask your nurse to give you one when you are discharged.2.Visit a local take-back location: Many local pharmacies and police departments have programs that collect old and unwanted prescription drugs. Call your local pharmacy or go to http://Reqlut.Bering Media/0E9Ls6j to find one close to you.3.Make use of household items: Use cat litter or old coffee grounds to dispose medications if other options are not available. Mix your drugs with these household products, seal them in an airtight container and throw it into the garbage. Call [facility]: [phone] to be sure your drugs can be disposed of in this way. Some medicines may require a different approach.4.Never flush your medications down the toilet. IF YOU HAVE BEEN PRESCRIBED AN OPIOID FOR PAIN If you have been prescribed an opioid (such as hydrocodone, oxycodone or morphine), it is critical to understand the possible side effects and risks of opioid pain medications. Even when taken as directed, opioids can have several side effects including: Tolerance, meaning you might need to take more of a medication for the same pain relief. Nausea, vomiting and/or constipation. Sleepiness, dizziness, dry mouth, confusion, depression or itching. Physical dependence, meaning you have withdrawal symptoms when a medication is stopped, can develop within a few days. KNOW YOUR RESPONSIBILITIES It is important to know exactly how much and how often to take the opioid pain medications you are prescribed. Never take opioids in higher amounts or more often than prescribed. Do not combine opioids with alcohol or other drugs that cause drowsiness, such as benzodiazepines, also known as benzos, including diazepam and alprazolam, muscle relaxants or sleep aids. Never sell or share prescription opioids. This is illegal. Store opioids in a secure place and out of reach of others (including children, family, friends and visitors). The last page of this document has been signed and retained as a CHART COPY. Signatures Patient Education Materials Raquel Evangelista Post-op Instruction 10/2016 (48606) Medication Leaflets My discharge plan and instructions have been reviewed and explained to me and I,JEREL ROSA understand my current condition and have read and understand these discharge instructions. I have received a written copy of the plan/instructions. If I have questions, I am aware that I should contact my doctor. Patient/Clinical Science Liaison Signature: Date/Time: Relationship to Patient: Witness Name/Signature: Date/Time: [facility] 10-08-2022 Note Date of Service 10/08/2022 Chief Complaint Right hip pain Subjective Patient seen and evaluated this morning while sitting in a chair. She states that she is doing well this morning. She is having pain in her right hip today but feels that it is controlled with her pain medication. She denies any difficulty breathing or chest pain. She has been voiding without any difficulty and passing gas. She further denies any fever, chills, cough, shortness of breath, chest pain, abdominal pain, nausea or dysuria. Labs and vital signs reviewed. Patient's hemoglobin did drop since pre-op labs but primary team increased her ferrous sulfate to twice daily and started folic acid. Patient denies any lightheadedness or dizziness. Physical exam was unremarkable. From hospitalist perspective, patient is stable for discharge home today. Will defer to primary team to make the final decision on discharge. All questions answered. Objective Vitals and Measurements T: 36.4 C (Oral) TMIN: 35.9 C (Skin) TMAX: 36.5 C (Oral) HR: 93(Apical) RR: 16 BP: 104/63 SpO2: 94% HT: 165.1 cm WT: 69.5 kg BMI: 25.5 Intake and Output 7AM Yesterday to 7AM Today Intake and Output (Last 24 hours) Intake Administration Information 1065.68 Supplement Intake 120.00 Output Intra-Op EBL 250.00 Total Summary Total Intake 1185.68 Total Output 250.00 Fluid Balance 935.68 Physical Exam General: No acute distress. Patient is alert and appropriate. Skin: No rash. Skin is warm, dry and intact. HEENT: Head is normocephalic, atraumatic. Pupils are equal, round and reactive. Neck: Supple. No lymphadenopathy, thyromegaly. Lungs: Bilaterally clear but diminished without crepitation or wheeze. Unlabored. Heart: Heart is regular rhythm, S1, S2. No murmurs, gallops or rubs. Abdomen: Abdomen is soft, nontender. Bowels sounds present in all quadrants. Extremities: No clubbing, cyanosis, or edema. Peripheral pulses palpable. No calf tenderness. Right hip surgical dressing is dry and intact. Neurological: Patient is awake and alert to person, place and time. Following simple commands, moving all extremities. Weight Dosing Weight: 69.5 kg (10/07/22) Dosing Weight: 69.5 kg (10/07/22) Medications Medications (26) Active Scheduled: (18) acetaminophen 500 mg Tablet 1,000 mg 2 tab(s), Oral, q8h aspirin 81 mg EC 81 mg 1 tab(s), Oral, BIDM atorvastatin 10 mg tablet 20 mg 2 tab(s), Oral, qDay citric acid-sodium citrate 334 mg-500 mg/5 mL (30 mL) Marj UD 30 mL, Oral, PREOP pharm docusate sodium 100 mg Capsule 100 mg 1 cap(s), Oral, BID docusate-senna (Senokot S) 50 mg-8.6 mg Tablet 2 tab(s), Oral, BID doxycycline hyclate 100 mg Capsule 100 mg 1 cap(s), Oral, q12h doxycycline hyclate 100 mg Capsule 100 mg 1 cap(s), Oral, q12h famotidine 20 mg tablet 20 mg 1 tab(s), Oral, qDay ferrous sulfate 325 mg Tablet 325 mg 1 tab(s), Oral, BIDM folic acid 1 mg tablet 1 mg 1 tab(s), Oral, qDay insulin lispro 100 units/mL Soln (3 mL) Give 0-5 units/dose, Subcutaneous, TIDAC levothyroxine 100 mcg tablet 100 mcg 1 tab(s), Oral, qDay lisinopril 5 mg tablet 5 mg 1 tab(s), Oral, Daily magnesium hydroxide 8% Suspension 30 mL UD 30 mL, Oral, Daily metoprolol succinate 50 mg ER tablet 25 mg 0.5 tab(s), Oral, qDayM multivitamin (Myadec) with minerals Therapeutic Multiple Vitamins with Minerals Tablet 1 tab(s), Oral, qDayM tramadol 50 mg Tablet 50 mg 1 tab(s), Oral, q6hr Continuous: (0) PRN: (8) acetaminophen 325 mg Tablet 650 mg 2 tab(s), Oral, q4h diphenhydramine 25 mg tablet 25 mg 1 tab(s), Oral, q6h diphenhyDRAMINE 50 mg/mL (1 mL) INJ 25 mg 0.5 mL, IV Push, q6h morphine 2 mg/mL 1 mL syringe 2 mg 1 mL, IV Push, q1h ondansetron 2 mg/ 1 mL 2 mL INJ 4 mg 2 mL, IV Push, q8h prochlorperazine 10 mg/2 mL vial 5 mg 1 mL, IV Push, q6h sodium biphosphate-sodium phosphate 19 gm-7 gm Enema 133 mL, Rectal, qDay tramadol 50 mg Tablet 50 mg 1 tab(s), Oral, q6h Lab Results 10/08 05:19 WBC: 12.8 H Hgb: 9.1 L Hct: 27.0 L Platelet: 204 Neutrophil %: 84.3 H Glucose Level: 154 H Sodium Level: 138 Potassium Level: 4.1 BUN: 16 Creatinine Lvl (s): 0.87 Imaging Results and Diagnostics XR Hip Right w/Pelvis 4 Views Result Date: October 07, 2022 Verified By: LIVAN ESCOBEDO MD CLINICAL STATEMENT: IMPRESSION: Expected postoperative finding with no acute fracture seen. EKG No qualifying data available. Assessment/Plan 1. Right hip pain Chronic, s/p right total hip arthroplasty *Management per primary team. *POD # 1. *Continue PO pain medication and antiemetics. *Hemoglobin dropped to 9.0 this morning, was 13.6 in mid-September. Patient's ferrous sulfate was increased to twice daily and she was started on folic acid. Denies any evidence of bleeding. *Follow-up with PCP for CBC recheck. 2. Diabetes mellitus type 2 Chronic, controlled *Blood sugar checks before meals and at bedtime. *Cover with sliding scale insulin. *Continue diabetic diet as tolerated. *Blood sugar goal of 180 or less and avoid hypoglycemia - at goal. 3. HYPERTENSION, BENIGN ESSENTIAL Chronic *Continue current antihypertensives. *SBP goal of 140 or less. 4. 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 *Continue current home medications. Patient seen and evaluated this morning while resting in chair. Physical exam was unremarkable. Lab results and vital signs trends reviewed and were stable. From hospitalist perspective, patient is medically optimized for discharge home today. Will defer to primary team for final decision on discharge. Thank you for including hospitalist service in the care of your patient! DVT prophylaxis with aspirin 81 mg PO BID. Code status: Full Code. Labs, diagnostic test and progress notes reviewed as noted in HPI. Plan of care discussed with patient. All questions answered. Patient verbalizes understanding and is agreeable with plan of care. This case was discussed with collaborating physician, Dr. Stanley Concepcion. Time Spent 35 minutes spent reviewing past diagnostic tests, reviewing lab results, vital sign trends, medical history, reviewing medications and ordering home medications, examining patient, collaborating with physician, and documenting in chart. Digitally Signed by ROSA MANDUJANO on 10/08/2022 11:15 AM [facility] 10-08-2022 Hospital Discharg e instructions Patient Education 10/08/2022 06:54:02 5 - [facility] Post-op Instruction 10/2016 (65799) [facility] Post-operative Instructions PLEASE FOLLOW [facility] POST-OP INSTRUCTIONS GIVEN WATCH FOR SIGNS OF INFECTION: call the office ([phone]) if experencing any of the following: (Usually appears 36-48 hours after surgery) Increased temperature (101 degrees Fahrenheit or higher) Redness or swelling Increased uncontrolled pain Foul odor or drainage Calf discomfort Significant swelling Or if having any chest pain, shortness of breath, or difficulty breathing or swallowing call the office or go the nearest Emergency Room. If you have any questions, please call your doctor at the number listed on your follow up instructions. Form: 338A ([id number]) R: 07/13 Follow Up Care 09/08/2022 12:25:13 With:[facility] Address: [address] [place] [phone] When:10/10/2022 09:00:00 Comments:This is your first physical therapy appointment. Follow-up as scheduled. With:SOURAV COE PA-C, Orthopedic Address: [facility] [address] [place], [place] [address] [address]- When:10/20/2022 09:00:00 Comments:This is your post-op appointment. Follow-up as scheduled. With:SUNSHINE ATWOOD MD Address: [facility] [address] [place] [address]- When:10/24/2022 16:50:00 Comments:Please have your labwork done a few days prior to this appointment so you can go over your results. [facility] 10-08-2022 Note Date of Service October 08, 2022 Subjective The patient was sitting in bed upon examination. Patient denies any chest pain, shortness of breath, dizziness, lightheadedness, nausea or vomiting, or calf pain. No adverse overnight events. Pain has been controlled on medications. Patient has been up walking and states she has done well. She states her pain is better today than before recent operation. She denies any dizziness or lightheadedness. She states she normally takes iron on her own. She has had a drop in hemoglobin postoperatively. Her vitals have been stable. Patient does have reaction to Tylenol and oxycodone many years ago. She is currently on tramadol for pain control. The pain has been controlled today. She states cardiology did not want her using any nonsteroidal anti-inflammatories. Objective Vitals and Measurements T: 36.5 C (Oral) TMIN: 35.9 C (Skin) TMAX: 36.5 C (Temporal Artery) HR: 74(Apical) RR: 16 BP: 125/67 SpO2: 95% HT: 165.1 cm WT: 69.5 kg BMI: 25.5 Intake and Output 7AM Yesterday to 7AM Today Intake and Output (Last 24 hours) Intake Administration Information 1065.68 Supplement Intake 120.00 Output Intra-Op EBL 250.00 Total Summary Total Intake 1185.68 Total Output 250.00 Fluid Balance 935.68 Physical Exam Vital signs stable, afebrile SCDs and SKINNY avilez are in place bilaterally Right hip is soft and supple Patient is able to plantarflex and dorsiflex actively Sensation is intact to saphenous, sural, superficial and deep peroneal, and tibial distribution Dressing is clean dry and intact Negative signs and symptoms of DVT, negative Homans bilaterally Weight Dosing Weight: 69.5 kg (10/07/22) Dosing Weight: 69.5 kg (10/07/22) Medications Medications (27) Active Scheduled: (19) acetaminophen 500 mg Tablet 1,000 mg 2 tab(s), Oral, q8h aspirin 81 mg EC 81 mg 1 tab(s), Oral, BIDM atorvastatin 10 mg tablet 20 mg 2 tab(s), Oral, qDay bisacodyl 5 mg EC tablet 10 mg 2 tab(s), Oral, Once citric acid-sodium citrate 334 mg-500 mg/5 mL (30 mL) Marj UD 30 mL, Oral, PREOP pharm docusate sodium 100 mg Capsule 100 mg 1 cap(s), Oral, BID docusate-senna (Senokot S) 50 mg-8.6 mg Tablet 2 tab(s), Oral, BID doxycycline hyclate 100 mg Capsule 100 mg 1 cap(s), Oral, q12h doxycycline hyclate 100 mg Capsule 100 mg 1 cap(s), Oral, q12h famotidine 20 mg tablet 20 mg 1 tab(s), Oral, qDay ferrous sulfate 325 mg Tablet 325 mg 1 tab(s), Oral, BIDM insulin lispro 100 units/mL Soln (3 mL) Give 0-5 units/dose, Subcutaneous, TIDAC levothyroxine 100 mcg tablet 100 mcg 1 tab(s), Oral, qDay lisinopril 5 mg tablet 5 mg 1 tab(s), Oral, Daily magnesium hydroxide 8% Suspension 30 mL UD 30 mL, Oral, Daily metoprolol succinate 50 mg ER tablet 25 mg 0.5 tab(s), Oral, qDayM multivitamin (Myadec) with minerals Therapeutic Multiple Vitamins with Minerals Tablet 1 tab(s), Oral, qDayM ondansetron 2 mg/ 1 mL 2 mL INJ 4 mg 2 mL, IV Push, q8h tramadol 50 mg Tablet 50 mg 1 tab(s), Oral, q6hr Continuous: (0) PRN: (8) acetaminophen 325 mg Tablet 650 mg 2 tab(s), Oral, q4h diphenhydramine 25 mg tablet 25 mg 1 tab(s), Oral, q6h diphenhyDRAMINE 50 mg/mL (1 mL) INJ 25 mg 0.5 mL, IV Push, q6h morphine 2 mg/mL 1 mL syringe 2 mg 1 mL, IV Push, q1h ondansetron 2 mg/ 1 mL 2 mL INJ 4 mg 2 mL, IV Push, q8h prochlorperazine 10 mg/2 mL vial 5 mg 1 mL, IV Push, q6h sodium biphosphate-sodium phosphate 19 gm-7 gm Enema 133 mL, Rectal, qDay tramadol 50 mg Tablet 50 mg 1 tab(s), Oral, q6h Lab Results 10/08 05:19 WBC: 12.8 H Hgb: 9.1 L Hct: 27.0 L Platelet: 204 Neutrophil %: 84.3 H Glucose Level: 154 H Sodium Level: 138 Potassium Level: 4.1 BUN: 16 Creatinine Lvl (s): 0.87 EKG No qualifying data available. 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 Status post conversion previous hip surgery to a right total hip arthroplasty posterior approach postop day #1 2. Continue pain medications: Continue with tramadol for pain control. She can attempt to use the Tylenol and if she has same reaction from many years ago she will stop this. She is unable to use nonsteroidal anti-inflammatories. 3. DVT prophylaxis: Take 81 mg aspirin twice daily with food for 4 weeks postoperatively for DVT prophylaxis. Patient denies past history of DVT or pulmonary embolism 4. Physical therapy: Weightbearing as tolerated with walker. Continue posterior hip dislocation precautions for 3 months postoperatively 5. H & H: 9.1/27.0, asymptomatic. Postoperative anemia secondary to acute blood loss from surgery without intraoperative complications. Patient normally takes iron once a day on her own. She stopped this preoperatively. Operative report lists estimated blood loss at 250 mL. Patient had 1000 mL lactated Ringer's intraoperatively. She currently denies any dizziness or lightheadedness. Her vitals are stable. Patient will go back on her iron twice daily and we will also place her on folic acid. Prescription for lab work will be placed on chart and she will follow-up with her primary care physician for continued management in 2 weeks. Case management will be involved setting up appointment for primary care physician. She voiced understanding agreement with treatment plan. She is aware that the iron can cause constipation and if having significant constipation will go down to once daily with the iron. 6. Reactive leukocytosis: Currently 12.8, afebrile. Patient did receive Decadron intraoperatively 7. Continue antibiotics postoperatively for 2 weeks due to complex nature of patient's case: Patient will continue with doxycycline for 2 weeks postoperatively. I discussed with the patient potential side effects with the doxycycline including hypersensitivity to the sunlight and must take appropriate precautions. Also recommended probiotic while taking the antibiotic for 2 weeks postoperatively. Patient voiced understanding and agreement. 8. Encouraged incentive spirometry 9. Continue postoperative medical management per medicine 10. Disposition: Patient this morning appears orthopedically stable. Plan will be for possible discharge home this afternoon as long as she is medically stable and tolerates physical therapy. We discussed her postoperative dislocation precautions for the posterior approach. We will make sure she is appropriate from therapy for discharge today. She did have drop in hemoglobin and she will resume her iron and she will be placed on folic acid. Prescription for lab work will be placed on chart and we will have her follow-up with her primary care physician in the next 12 to 14 days for further management of the postoperative anemia. She has outpatient physical therapy established. She will follow-up her postoperative instructions. Patient would like her prescriptions E scribed to [facility]. She will contact her office upon discharge with any concerns or questions. I have reviewed the [place] Automated Rx Reporting System (OARRS) report for this patient for refill pattern and other prescriber involvement as part of the appropriate surveillance for the provision of acute and chronic controlled medications. The report was requested and reviewed on the date of this entry, and was considered in the prescribing process This dictation was created using voice recognition software. Phonetic and/or grammatical errors may exist. Digitally Signed by SOURAV COE PA-C on 10/08/2022 06:48 AM [facility] 10-07-2022 Note ORIGINAL EXAMINATION: ONE XRAY VIEW OF THE PELVIS AND TWO XRAY VIEWS RIGHT HIP 10/07/2022 2:00 pm COMPARISON: None. HISTORY: ORDERING SYSTEM PROVIDED HISTORY: Reason for Exam: Status Post Arthroplasty FINDINGS: Patient is status post right hip replacement. The prosthetic components appear well seated, with no evidence for adjacent fracture. Minor degenerative changes are present at the lower lumbar spine. Mild left hip osteoarthritis noted. IMPRESSION: Expected postoperative finding with no acute fracture seen. Interpreted by: Livan Escobedo MD Preliminary Report By: Livan Escobedo MD Electronically signed By Livan Escobedo MD Dictated Date: 10/07/2022 2:07:40 PM Prelim Date: 10/07/2022 2:08:13 PM Sign Date: 10/07/2022 2:08:13 PM Ordering Provider: SHAGGY MEJIA [facility] 09-19-2022 Note ORIGINAL EXAMINATION: CT OF THE RIGHT HIP WITHOUT CONTRAST 09/19/2022 11:07 am TECHNIQUE: CT of the right hip was performed without the administration of intravenous contrast. Multiplanar reformatted images are provided for review. Automated exposure control, iterative reconstruction, and/or weight based adjustment of the mA/kV was utilized to reduce the radiation dose to as low as reasonably achievable. COMPARISON: None available. HISTORY ORDERING SYSTEM PROVIDED HISTORY: Reason for Exam: NONDISPLACED FX OF BASE OF NECK OF RIGHT FEMUR. FINDINGS: Bones/Joints: There are 3 gamma nails of the right femur. At least 1 of the nails appears to go through the subchondral bone. There is a mildly displaced fracture of the medial right femoral head with intra-articular involvement. No joint effusion. No additional acute fractures are visualized. The bilateral hips demonstrate at least moderate joint space narrowing. Small marginal osteophytes. There are degenerative changes of the included lumbar spine with severe canal stenosis noted at L4-5 secondary to a disc bulge, facet arthrosis, and ligamentum flavum thickening. No canal stenosis noted of L5-S1. The bilateral sacroiliac joints demonstrate osteoarthritic changes but without erosion. Mild bilateral sacroiliac joint degenerative changes with osteophytosis and minimal subchondral sclerosis inferiorly left greater than right. Soft Tissue: No significant soft tissue edema or fluid collections. Other: Incidental mild diverticulosis. Unremarkable urinary bladder and uterus. Vascular calcifications. IMPRESSION: Mildly displaced medial right femoral head fracture with intra-articular involvement. At least 1 of the gamma nails of the right femur traverses through the subchondral bone. Clinical correlation will be necessary. I have personally reviewed the images of this examination and agree with the resident's findings and interpretation. Interpreted by: Kenn Haney DO Preliminary Report By: Felix Mac Electronically signed By Kenn Haney DO Dictated Date: 09/19/2022 2:36:50 PM Prelim Date: 09/19/2022 4:53:46 PM Sign Date: 09/19/2022 4:53:46 PM Ordering Provider: SHAGGY MEJIA [facility] 09-19-2022 Note ORIGINAL EXAMINATION: CT OF THE RIGHT HIP WITHOUT CONTRAST 09/19/2022 11:07 am TECHNIQUE: CT of the right hip was performed without the administration of intravenous contrast. Multiplanar reformatted images are provided for review. Automated exposure control, iterative reconstruction, and/or weight based adjustment of the mA/kV was utilized to reduce the radiation dose to as low as reasonably achievable. COMPARISON: None available. HISTORY ORDERING SYSTEM PROVIDED HISTORY: Reason for Exam: NONDISPLACED FX OF BASE OF NECK OF RIGHT FEMUR. FINDINGS: Bones/Joints: There are 3 gamma nails of the right femur. At least 1 of the nails appears to go through the subchondral bone. There is a mildly displaced fracture of the medial right femoral head with intra-articular involvement. No joint effusion. No additional acute fractures are visualized. The bilateral hips demonstrate at least moderate joint space narrowing. Small marginal osteophytes. There are degenerative changes of the included lumbar spine with severe canal stenosis noted at L4-5 secondary to a disc bulge, facet arthrosis, and ligamentum flavum thickening. No canal stenosis noted of L5-S1. The bilateral sacroiliac joints demonstrate osteoarthritic changes but without erosion. Mild bilateral sacroiliac joint degenerative changes with osteophytosis and minimal subchondral sclerosis inferiorly left greater than right. Soft Tissue: No significant soft tissue edema or fluid collections. Other: Incidental mild diverticulosis. Unremarkable urinary bladder and uterus. Vascular calcifications. IMPRESSION: Mildly displaced medial right femoral head fracture with intra-articular involvement. At least 1 of the gamma nails of the right femur traverses through the subchondral bone. Clinical correlation will be necessary. I have personally reviewed the images of this examination and agree with the resident's findings and interpretation. Interpreted by: Kenn Haney DO Preliminary Report By: Felix Mac Electronically signed By Kenn Haney DO Dictated Date: 09/19/2022 2:36:50 PM Prelim Date: 09/19/2022 4:53:46 PM Sign Date: 09/19/2022 4:53:46 PM Ordering Provider: SHAGGY MEJIA [facility] Evaluation + Plan note Future Appointments Appointment Date:09/25/2022 08:30:00 AM Scheduled Provider:CRISTIAN THOMAS Location:[facility] Appointment Type:CV OV Appointment Date:02/19/2023 09:15:00 AM Scheduled Provider: Location:[facility] Appointment Type:CV OV [facility] Evaluation + Plan note Future Appointments Appointment Date:02/19/2023 09:15:00 AM Scheduled Provider: Location:[facility] Appointment Type:CV OV [facility] Hospital course Narrative No data available for this section [facility] Hospital Discharge instructions No data available for this section [facility] Progress note No data available for this section [facility] Summary Purpose Family History No Family History Records Found Advance Directives No Advanced Directives Records Found Additional Source Comments Patient Care team informatio n (unrecognized section and content) Care Team Personnel Name: SUNSHINE ATWOOD MD Member Role: Primary Care Physician Address: Address: [facility] [address] [place] [address]- Care Team Related Persons Name: ANGEL ROSA Address: Home [address] [place] [phone] [place] Care Team Personnel Name: SUNSHINE ATWOOD MD Member Role: Primary Care Physician Address: Address: [facility] [address] [place] [address]- Care Team Related Persons Name: ANGEL ROSA Address: Home [address] [place] [phone] Care Team Personnel Name: SUNSHINE ATWOOD MD Member Role: Primary Care Physician Address: Address: [facility] [address] [place] [address]- Care Team Related Persons Name: ANGEL ROSA Address: Home [address] [place], [place] [phone] [place] Name: OTTONIEL DARINEL INFORMATION SOURCE (unrecogn ized section and content) FOR RECORDS PERTAINING TO PATIENTS WHO ARE OR HAVE BEEN ENROLLED IN A CHEMICAL DEPENDENCY/SUBSTANCEABUSE PROGRAM, SOME INFORMATION MAY BE OMITTED. This clinical summary was aggregated from multiple sources. Caution should be exercised in using it in the provision of clinical care. This summary normalizes information from multiple sources, and as a consequence, information in this document may materially change the coding, format and clinical context of patient data. In addition, data may be omitted in some cases. CLINICAL DECISIONS SHOULD BE BASED ON THE PRIMARY CLINICAL RECORDS. [facility] [employer] provides no warranty or guarantee of the accuracy or completeness of information in this document.
[2023-03-11 10:49] LABS: Absolute Lymphocyte Count 1.12 X10^3/uL (0.83-4.51); Absolute Neutrophil Count 5.3 X10^3/uL (2.0-7.7); Basophil# 0.07 X10^3/uL; Basophil% 0.9 % (0-1); Eosinophils% 2.7 % (0-5); Hemoglobin 13.2 g/dL (12.0-15.0); Lymphocyte # 1.12 X10^3/ul (0.83-4.51); Mean Corp Hgb Conc 32.2 g/dL (32-36); Mean Corpuscular Hgb 28.8 pg (27.0-32.0); Mean Corpuscular Volume 89.3 fL (81-99); Mean Platelet Vol. 11.5 fl (6.2-12.0); Monocyte# 0.72 X10^3/uL; Monocyte% 9.7 % (0-10); NRBC Flagged by Analyzer 0 % (0-5); Neutrophil # 5.33 X10^3/uL (2.7-7.7); Neutrophil % 71.4 % (47-70); Platelet Count 243 K/mm3 (150-450); RBC Distribution Width CV 13.1 % (11.6-14.6); RBC Distribution Width SD 42.8 fl (35.1-43.9); Red Blood Count 4.59 M/mm3 (4.2-5.4); White Blood Count 7.5 K/mm3 (4.4-11.0)
[2023-03-11 11:45] LABS: ALB/GLOB Ratio 0.9 RATIO (0.9-2.4); AST(SGOT) 13 U/L (15-37); Alanine Aminotransfer ALT/SGPT 29 U/L (13-56); Albumin, Serum 3.6 g/dL (3.2-5.0); Alkaline Phosphatase 65 U/L (45-117); Anion Gap 8 (5-15); BUN 18 mg/dL (7-18); BUN/Creat Ratio 19.3 RATIO (10-20); Calcium,Total 10.1 mg/dL (8.5-10.1); Chloride 106 mmol/L (98-107); Cholesterol 112 mg/dL (200); Creatinine, Serum 0.93 mg/dL (0.55-1.02); EST Glomerular Filtration Rate 62 mL/min (>60); Est Glom Filt Rate - Afr Amer 75 mL/min (>60); Globulin 3.9 g/dL (2.2-4.2); Glucose 102 mg/dL (74-106); High Density Lipoprotein 38 mg/dL; Protein, Total 7.5 g/dL (6.4-8.2); Sodium Level 138 mmol/L (136-145); Triglycerides 146 mg/dL; Very Low Density Lipoprotein 29 mg/dL (5-40)
[2023-03-11 11:52] LABS: Hemoglobin A1c 6.3 % (3.8-5.6)
== END | disposition home or self-care (01) ==
PROVIDERS: PCP Family Medicine; Referring Provider Family Medicine; Visit Provider Family Medicine
DX: E11.9 Type 2 diabetes mellitus without complications (principal); D64.9 Anemia, unspecified; I25.10 Atherosclerotic heart disease of native coronary artery without angina pectoris; E03.9 Hypothyroidism, unspecified; M85.80 Other specified disorders of bone density and structure, unspecified site; M24.849 Other specific joint derangements of unspecified hand, not elsewhere classified
CPT/HCPCS: 36415; 73130; 80053; 80061; 82306; 83036; 84443; 85025

== ENCOUNTER 2023-04-21 09:00 | Outpatient (RCR) | payer MEDICARE, OTHER, SELFPAY ==
--- NOTE | 2023-03-24 09:46 | HP.OTEVAL ---
Patient's Visit Information Visit Information Visit Information: JEREL ROSA is a 77 year old F, referred to Occupational Therapy by Shagufta Murillo MD, with a diagnosis of right thumb pain. Date of Evaluation: 03/24/23 Occupational Therapist: Malina Morillo, MAIKEL/Susan, CHT Subjective Subjective: This 77 year old female was seen for OT eval with dx of right thumb pain - ( right trigger finger) Pt states this started in Jan. and she let it go because she had dr. pulliam in Mar. Pt states after she did see the it did start to hurt a little- more pain in AM when she first gets up. 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 1 night a week. pt states she would like to have her thumb stop triggering and return to her PLOF. ADLs Fasteners: Snaps Kitchen: Open jars and Open bottle caps Pain right thumb: Current Pain Intensity: 0 Pain Intensity Range: 0 and 3 ROM CMC: right 10 left 10 MP: right 50 left 55 IP: right 30 left 30 ROM Comments: pt demo with positive right thumb trigger finger Strength Application Support Manager: right 55# left 55# Lateral Pinch: right 6# left 8# Tripod Pinch: right 6# left 6# Sensation Sensation Comments: denies Quick DASH-Disab of Arm,Shoulder& Hand Quick DASH Score: 13.6350 Goals Goal:: pt will demo full right thumb IP ROM with no noted trigger by d/c Goal:: pt will report no pain with use of right hand with ADLs and IADLs by d/c Goal:: Pt will demo understanding of joint protection and ergonomics when performing BADLs and IADLs by d/c Pt will demo understanding of adaptive Equipment use to decrease stress on joints to allow pt to perform BADSL and IADLS at ARJUN level. Goal:: Pt will demo understanding of using supportive bracing 80% of workday/ADLS to decrease stress on tendon origin to allow healing and decrease pain by end of 2nd session. Rehabilitation General Assessment: pt demo with right thumb IP trigger finger- this is limiting pts IND with ADLs and IADls. Pt would benefit from skilled OT services 2x week for 4 weeks to eliminate trigger thumb and improve pts IND. with ADLS and IADls by d.c Today therapist ed. pt on dx and to avoid letting her thumb trigger to allow for the Flexor tendon to heal. Pt demo understanding and agree to POC. Anticipated Interventions Anticipated Interventions: A/AAROM/PROM, Triggerpoint Release, Modalities, Orthoses, Joint Protection/Energy Conservation, Ergonomic Education, Education re assistive Equipment, Education re Diagnosis and Home Program Visit Plan Frequency: 1-2x /Week Duration: 4 Weeks TEXT: Thank you for the opportunity to evaluate your patient. For Medicare and Medicare HMO plans, please review the plan of care and approve it. It will need to be FAXED BACK to us at [phone] for Medicare purposes. Please let me know if there are questions or concerns regarding this plan of care. Physician Signature: Date:
--- NOTE | 2023-06-17 13:56 | HP.OT.NRP ---
Patient Information Patient Information: JEREL ROSA was seen in my office for initial evaluation on 03/24/23. The following Plan of Care was established for this patient: POC Established Initial Frequency: 1-2x /Week Initial Duration: 4 Weeks Plan: See Consider cortisone injection Continue w/HEP Anticipated Interventions Anticipated Interventions: A/AAROM/PROM, Triggerpoint Release, Modalities, Orthoses, Joint Protection/Energy Conservation, Ergonomic Education, Education re assistive Equipment, Education re Diagnosis and Home Program Last Seen Last Seen: This patient was last seen in our office 04/21/23. Pertinent comments regarding their Occupational therapy will appear below: Pt was seen for 9 OT sessions- pt was referred back to due to limited progress with trigger and pain. Pt has not scheduled apts and due to time lapse in services pt d/c. At this point I will be discontinuing this patient from occupational therapy. I would be happy to see this patient again in the future if found appropriate by the physician. Thank you! Malina Morillo, OTR/L, CHT
== END 2023-04-21 19:00 | disposition home or self-care (01) ==
LOC: OT 09:00
PROVIDERS: PCP Family Medicine; Referring Provider Family Medicine; Visit Provider Family Medicine
DX: M79.644 Pain in right finger(s) (principal)
CPT/HCPCS: 97035; 97110; 97140; 97166; 97530; 97760

== ENCOUNTER → 2024-02-09 | Outpatient (CLI) | payer MEDICARE, OTHER, SELFPAY ==
[2024-02-09 09:51] LABS: Absolute Neutrophil Count 5.9 X10^3/uL (2.0-7.7); Basophil# 0.06 X10^3/uL; Basophil% 0.7 % (0-1); Eosinophil# 0.16 X10^3/uL; Hematocrit 42.6 % (37-47); Hemoglobin 13.6 g/dL (12.0-15.0); Lymphocyte % 13.7 % (19-41); Mean Corp Hgb Conc 31.9 g/dL (32-36); Mean Corpuscular Hgb 28.8 pg (27.0-32.0); Mean Corpuscular Volume 90.3 fL (81-99); Mean Platelet Vol. 11.3 fl (6.2-12.0); Monocyte# 0.76 X10^3/uL; Monocyte% 9.5 % (0-10); NRBC Flagged by Analyzer 0 % (0-5); Neutrophil # 5.91 X10^3/uL (2.7-7.7); Neutrophil % 73.7 % (47-70); Platelet Count 233 K/mm3 (150-450); RBC Distribution Width SD 39.8 fl (35.1-43.9); Red Blood Count 4.72 M/mm3 (4.2-5.4)
[2024-02-09 12:30] LABS: AST(SGOT) 18 U/L (15-37); Alanine Aminotransfer ALT/SGPT 27 U/L (13-56); Albumin, Serum 3.8 g/dL (3.2-5.0); Alkaline Phosphatase 63 U/L (45-117); Anion Gap 8 (5-15); BUN 13 mg/dL (7-18); BUN/Creat Ratio 13.9 RATIO (10-20); Calcium,Total 9.7 mg/dL (8.5-10.1); Chloride 103 mmol/L (98-107); Cholesterol 112 mg/dL (200); Creatinine, Serum 0.94 mg/dL (0.55-1.02); EST Glomerular Filtration Rate 61 mL/min (>60); Est Glom Filt Rate - Afr Amer 74 mL/min (>60); Globulin 3.8 g/dL (2.2-4.2); Glucose 123 mg/dL (74-106); High Density Lipoprotein 42 mg/dL; Protein, Total 7.6 g/dL (6.4-8.2); Sodium Level 137 mmol/L (136-145); Triglycerides 197 mg/dL; Very Low Density Lipoprotein 39 mg/dL (5-40)
[2024-02-09 12:56] LABS: Microalbumin,Random Urine 7.4 mg/L (NO RANGE EST.); Microalbumin:Creatinine Ratio 21.4 mg/g CRE (<30 mg/g CRE)
== END | disposition home or self-care (01) ==
LOC: MFPLAB 09:08
PROVIDERS: PCP Family Medicine; Referring Provider Family Medicine; Visit Provider Family Medicine
DX: E11.9 Type 2 diabetes mellitus without complications (principal)
CPT/HCPCS: 36415; 80053; 80061; 82043; 82570; 85025

== ENCOUNTER → 2024-08-23 | Outpatient (CLI) | payer MEDICARE, OTHER, SELFPAY ==
[2024-08-23 12:39] LABS: Absolute Lymphocyte Count 1.32 X10^3/uL (0.83-4.51); Absolute Neutrophil Count 5.5 X10^3/uL (2.0-7.7); Basophil# 0.07 X10^3/uL; Basophil% 0.9 % (0-1); Eosinophil# 0.23 X10^3/uL; Eosinophils% 2.9 % (0-5); Hematocrit 41.3 % (37-47); Hemoglobin 13.5 g/dL (12.0-15.0); Lymphocyte # 1.32 X10^3/ul (0.83-4.51); Lymphocyte % 16.6 % (19-41); Mean Corp Hgb Conc 32.7 g/dL (32-36); Mean Corpuscular Hgb 29.3 pg (27.0-32.0); Mean Corpuscular Volume 89.8 fL (81-99); Monocyte# 0.81 X10^3/uL; Monocyte% 10.2 % (0-10); NRBC Flagged by Analyzer 0 % (0-5); Neutrophil # 5.52 X10^3/uL (2.7-7.7); Neutrophil % 69.1 % (47-70); Platelet Count 224 K/mm3 (150-450); RBC Distribution Width CV 12.3 % (11.6-14.6)
[2024-08-23 13:14] LABS: Hemoglobin A1c 6.9 % (<=5.6)
[2024-08-23 14:24] LABS: ALB/GLOB Ratio 1.6 RATIO (0.9-2.4); AST(SGOT) 19 U/L (<=31); Alanine Aminotransfer ALT/SGPT 22 U/L (<=34); Albumin, Serum 4.4 g/dL (3.4-4.8); Alkaline Phosphatase 61 U/L (35-104); Anion Gap 12 (5-15); BUN 10 mg/dL (4-19); BUN/Creat Ratio 11.7 RATIO (10-20); Calcium,Total 9.7 mg/dL (7.6-11.0); Carbon Dioxide 24.7 mmol/L (21.0-32.0); Chloride 101 mmol/L (98-108); Creatinine, Serum 0.85 mg/dL (0.70-1.20); EST Glomerular Filtration Rate 70 (>60); Globulin 2.7 g/dL (2.2-4.2); Glucose 100 mg/dL (70-99); Potassium 4.1 mmol/L (3.3-5.1); Protein, Total 7.2 g/dL (5.9-8.4); Sodium Level 139 mmol/L (133-145); Total Bilirubin 0.66 mg/dL (0.00-1.30)
== END | disposition home or self-care (01) ==
LOC: MFPLAB 10:06
PROVIDERS: PCP Family Medicine; Referring Provider Family Medicine; Visit Provider Family Medicine
DX: I10 Essential (primary) hypertension (principal); E11.9 Type 2 diabetes mellitus without complications; E03.9 Hypothyroidism, unspecified
CPT/HCPCS: 36415; 80053; 83036; 84443; 85025

== ENCOUNTER → 2024-09-27 | Outpatient (CLI) | payer MEDICARE, OTHER, SELFPAY ==
[2024-09-27 18:12] LABS: Hematocrit 39.4 % (37-47); Hemoglobin 12.7 g/dL (12.0-15.0); Immature Granulocytes Count 0.020 X10^3/uL (0.0-0.0); Mean Corp Hgb Conc 32.2 g/dL (32-36); Mean Corpuscular Volume 90.2 fL (81-99); Mean Platelet Vol. 12.0 fl (6.2-12.0); NRBC Flagged by Analyzer 0 % (0-5); Platelet Count 207 K/mm3 (150-450); RBC Distribution Width CV 12.1 % (11.6-14.6); RBC Distribution Width SD 40.1 fl (35.1-43.9); Red Blood Count 4.37 M/mm3 (4.2-5.4); White Blood Count 7.8 K/mm3 (4.4-11.0)
[2024-09-27 18:55] LABS: AST(SGOT) 22 U/L (<=31); Alanine Aminotransfer ALT/SGPT 23 U/L (<=34); Albumin, Serum 4.3 g/dL (3.4-4.8); Alkaline Phosphatase 65 U/L (35-104); Anion Gap 14 (5-15); BUN 13 mg/dL (4-19); BUN/Creat Ratio 14.2 RATIO (10-20); Calcium,Total 9.9 mg/dL (7.6-11.0); Carbon Dioxide 23.8 mmol/L (21.0-32.0); Chloride 103 mmol/L (98-108); Globulin 2.8 g/dL (2.2-4.2); Glucose 138 mg/dL (70-99); Lipase 37 U/L (13-75); Potassium 3.9 mmol/L (3.3-5.1)
== END | disposition home or self-care (01) ==
LOC: MFPLAB 15:25
PROVIDERS: PCP Family Medicine; Referring Provider Family Medicine; Visit Provider Family Medicine
DX: R19.7 Diarrhea, unspecified (principal)
CPT/HCPCS: 36415; 80053; 83690; 84443; 85025; 85652

== ENCOUNTER → 2024-09-28 | Outpatient (CLI) | payer MEDICARE, OTHER, SELFPAY | END | disposition home or self-care (01) | LOC: LABSPEC 08:33 | PROVIDERS: PCP Family Medicine; Referring Provider Family Medicine; Visit Provider Family Medicine | DX: R19.7 Diarrhea, unspecified (principal) ==

== ENCOUNTER → 2025-02-14 | Outpatient (CLI) | payer MEDICARE, OTHER, SELFPAY ==
--- NOTE | 2025-02-14 10:27 | RAD_ITS ---
PROCEDURE: CHEST PA AND LATERAL 02/14/2025 REASON FOR EXAM: CHEST WALL PAIN TECHNIQUE: Procedure Code: RADCXR Modality: DX Procedure: CHEST PA AND LATERAL COMPARISON: None FINDINGS: Heart size and mediastinal configuration are within normal limits. There is no focal infiltrate or consolidation. There is no pneumothorax or effusion. There is no acute bony abnormality. Aortic calcifications are noted. RAD/Chest PA and Lateral IMPRESSION: No acute process is identified in the chest. Reading Location: [facility]
--- NOTE | 2025-02-14 10:27 | RAD_ITS ---
PROCEDURE: THORACIC SPINE 2 VIEWS 02/14/2025 REASON FOR EXAM: CHEST WALL PAIN TECHNIQUE: Procedure Code: RADSPT2 Modality: DX Procedure: THORACIC SPINE 2 VIEWS COMPARISON: None FINDINGS: Thoracic spine two views. There is mild levocurvature of the lower thoracic region with less than 10 degrees of variance. Vertebral body height is maintained. Osteopenia is noted. Vascular calcifications are visible. RAD/Thoracic Spine 2 Views IMPRESSION: There is mild levocurvature of the lower thoracic region with less than 10 degr ees of variance, which can indicate spasm. Reading Location: [facility]
[2025-02-14 12:38] LABS: Hematocrit 42.7 % (37-47); Hemoglobin 13.6 g/dL (12.0-15.0); Immature Granulocytes Count 0.030 X10^3/uL (0.0-0.0); Mean Corp Hgb Conc 31.9 g/dL (32-36); Mean Corpuscular Volume 86.8 fL (81-99); Mean Platelet Vol. 11.8 fl (6.2-12.0); NRBC Flagged by Analyzer 0 % (0-5); Platelet Count 232 K/mm3 (150-450); RBC Distribution Width CV 13.4 % (11.6-14.6); RBC Distribution Width SD 42.1 fl (35.1-43.9); Red Blood Count 4.92 M/mm3 (4.2-5.4); White Blood Count 9.3 K/mm3 (4.4-11.0)
[2025-02-14 13:12] LABS: AST(SGOT) 28 U/L (<=31); Alanine Aminotransfer ALT/SGPT 41 U/L (<=34); Albumin, Serum 4.4 g/dL (3.4-4.8); Alkaline Phosphatase 68 U/L (35-104); Anion Gap 11 (5-15); BUN 14 mg/dL (4-19); BUN/Creat Ratio 18.3 RATIO (10-20); Calcium,Total 9.7 mg/dL (7.6-11.0); Carbon Dioxide 26.3 mmol/L (21.0-32.0); Chloride 102 mmol/L (98-108); Globulin 3.3 g/dL (2.2-4.2); Glucose 129 mg/dL (70-99); Potassium 3.9 mmol/L (3.3-5.1); Vitamin B12 910 pg/mL (180-914)
[2025-02-14 14:02] LABS: FOLATES,SERUM (FOLIC ACID) 37.80 ng/mL (4.60-34.80)
[2025-02-15 14:09] LABS: PROEL- A/G Ratio 1.1 (0.7-1.7); PROEL- Albumin 3.7 g/dL (2.9-4.4); PROEL- Alpha-1 Globulin 0.2 g/dL (0.0-0.4); PROEL- Alpha-2 Globulin 0.9 g/dL (0.4-1.0); PROEL- Beta Globulin 1.0 g/dL (0.7-1.3); PROEL- Gamma Globulin 1.3 g/dL (0.4-1.8); PROEL- Globulin, Total 3.4 g/dL (2.2-3.9); PROEL- TOTAL PROTEIN 7.1 g/dL (6.0-8.5); PROEL-M-Spike 0.7 g/dL (Not Observed)
[2025-02-15 15:09] LABS: ANTINUCLEAR ANTIBODIES DIRECT Negative (Negative)
== END | disposition home or self-care (01) ==
LOC: MTLAB 10:25
PROVIDERS: PCP Family Medicine; Referring Provider Family Medicine; Visit Provider Family Medicine
DX: R07.89 Other chest pain (principal); E11.9 Type 2 diabetes mellitus without complications; I10 Essential (primary) hypertension; R53.83 Other fatigue
CPT/HCPCS: 36415; 71046; 72070; 80053; 82607; 82746; 83036; 84165; 85025; 86038; 86431